=== PATIENT | female | born 1985 | race Caucasian/White ===

== ENCOUNTER 2023-01-24 19:22 | Outpatient (REF) | payer MEDICARE, MEDICAID, SELFPAY ==
[2023-01-30 12:08] LABS: Age Gdln ACOG Testing Note (.); HPV Aptima Negative (Negative); IGP, Aptima HPV, rfx 16/18,45 Note (.)
== END 2023-01-24 19:23 | disposition home or self-care (01) ==
LOC: LAB 19:22
PROVIDERS: Visit Provider Physician Assistant
DX: Z01.419 Encounter for gynecological examination (general) (routine) without abnormal findings (principal)
CPT/HCPCS: 87624; G0145

== ENCOUNTER 2023-03-22 16:42 | Outpatient (OUT) | payer MEDICARE, MEDICAID, SELFPAY ==
--- NOTE | 2023-03-22 16:44 | MM_ITS ---
Patient Name: NICOLETTE FERNANDEZ MR#: [id number] : 1985 Exam Date: 03/22/2023 Ordering Doctor: MAIK Joyce . RADIOLOGY REPORT PROCEDURE: MM TOMOSYNTHESIS SCREENING BI COMPARISON: [facility] MAMM DIAGNOSTIC 3D NICK CAD, 02/24/2021. [facility] MAMM SCREEN 3D NICK CAD, 03/21/2022. INDICATIONS: screening Calculator Name NCI Breast Cancer Risk Assessment Tool 5 Year Breast Cancer Risk 0.80% Lifetime Breast Cancer Risk 11.00% Personal Breast Cancer No Personal Ovarian Cancer No Treatments None Family Cancers Grandmother-maternal with breast cancer at age 62; Grandmother-maternal with ovarian cancer at age 62; Father with prostate cancer at age ~48; Sister with cervical cancer at age ~25. LOCATION: [facility] BREAST COMPOSITION: Extremely dense, which lowers the sensitivity of mammography. FINDINGS: DIAGNOSTIC CATEGORY 2--BENIGN FINDING. NO CHANGE FROM COMPARISON. Scattered benign-appearing calcifications are present. Scattered benign-appearing lymph nodes are present. RIGHT BREAST: No significant suspicious finding. Stable micro clip marker lower inner quadrant, posterior breast LEFT BREAST: No significant suspicious finding. Pacemaker partially obscures the left axillary tail RECOMMENDATIONS: CLINICAL EVALUATION. PLEASE NOTE: A NORMAL MAMMOGRAM DOES NOT EXCLUDE THE POSSIBILITY OF BREAST CANCER. A CLINICALLY SUSPICIOUS PALPABLE LUMP SHOULD BE BIOPSIED. Dictated by: Hudson Devries MD on 03/23/2023 at 07:16 Approved by: Hudson Devries MD on 03/23/2023 at 07:18
--- OUTSIDE RECORDS SUMMARY | 2023-03-22 16:45 | XMS_ITS | CCD ---
Author Name Unknown Address [address] [facility] [address] [place] [address] Organization [facility] Care Team Providers Care Fisheries Specialist Name Role Phone LAURA STILL Unavailable Unavailable GRUNDENCAROL Unavailable Unavailable ZURDO HEMANTONY R Unavailable Unavailable TESSY LAURA Ho Unavailable Unavailable TOMÁS, JUDY Admitting Unavailable DEEPTHI ENGLANDIR Attending Unavailable LAURA STILL Referring Unavailable LAURA STILL Primary Care Unavailable Tessy THOMAS, Laura Vic Primary Care Provider LAURA STILL Primary Care Unavailable MIN LEWIS Referring Unavailable Laura Still MD Primary Care Provider DR LAURA STILL Admitting Unavailable TESSY, DR GRIER Attending Unavailable TESSY, DR GRIER Primary Care Unavailable TESSY, DR GRIER Consulting Unavailable LATRELLEBTAN, DR RANJAN Castillo Consulting Unavailable PRAJAPATI, BERNARDO Admitting Unavailable PRAJAPATI, BERNARDO Attending Unavailable PRAJAPATI, BERNARDO Primary Care Unavailable PRAJAPATI, BERNARDO Consulting Unavailable PRAJAPATI, BERNARDO Admitting Unavailable PRAJAPATI, BERNARDO Attending Unavailable PRAJAPATI, BERNARDO Primary Care Unavailable PRAJAPATI, BERNARDO Consulting Unavailable LAURA STILL Vic Primary Care Unavailable ABHYANKAR, MIN Referring Unavailable ABHYANKAR, MIN Attending Unavailable TESSY LAURA Ho Primary Care Unavailable ABRICARDOAR, MIN Attending Unavailable JACINTO YIN Attending Unavailable JANA FRNACIS Attending Unavailable ALEM CROCKETT Referring Unavailable AZ WHITE Attending Unavailable ALEM CROCKETT Referring Unavailable Allergies Allergy Classification Reported Allergen(s) Allergy Type Date of Onset Reaction(s) Facility (15 sources) Morphine; Translations: [MORPHINE] Drug Allergy 2 Vomiting [facility] (13 sources) Vancomycin; Translations: [VANCOMYCIN] Drug Allergy 2 Rash [facility] (1 source) Latex; Translations: [LATEX] Propensity to adverse reactions to drug (disorder) 8 [facility] (1 source) ALLERGIES NOT ON FILE; Translations: [ALLERGIES NOT ON FILE] Propensity to adverse reactions (disorder) [facility] Medications Completed/Discontinued Medications Medication Drug Class(es) Dates Sig (Normalized) Sig (Original) 6-aminocaproic acid 500 mg oral tablet (5 sources) Antifibrinolytic Agent Start: 2 End: 2 take 4 tablets by mouth every six hours aminocaproic acid (AMICAR) 500 mg tablet Indications: Platelet dense granule deficiency (HCC) , Family history of bleeding disorder , History of bleeding disorder Take 4 tablets by mouth every 6 hours for 10 days. 160 tablet 3 02/07/2022 Active Comment on above: Take 4 tablets by mo [facility] every 6 hours for 10 days. 24 hr buPROPion hydrochloride 150 mg extended release oral tablet (10 sources) Aminoketone take 1 tablet by mouth once daily buPROPion XL (WELLBUTRIN XL) 150 mg 24 hr tablet bupropion HCl XL 150 mg 24 hr tablet, extended release TAKE 1 TABLET BY MOUTH EVERY DAY DIRECTED 0 Active Comment on above: bupropion HCl XL 150 mg 24 hr tablet, extended release TAKE 1 TABLET BY MOUTH EVERY DAY DIRECTED cholecalciferol 1.25 mg oral capsule (10 sources) Vitamin D take 1 capsule by mouth two times weekly cholecalciferol, Vitamin D3, (VITAMIN D3) 1,250 mcg (50,000 unit) cap capsule cholecalciferol (vitamin D3) 1,250 mcg (50,000 unit) capsule TAKE 1 CAPSULE BY MOUTH 2 TIMES A WEEK 0 Active Comment on above: cholecalciferol (vit broussard D3) 1,250 mcg (50,000 unit) capsule TAKE 1 CAPSULE BY MOUTH 2 TIMES A WEEK crisaborole 0.02 mg/mg topical ointment (10 sources) crisaborole (EUCRISA) 2 % Eucrisa 2 % topical ointment daily 0 Active Comment on above: Eucrisa 2 % topical ointment daily desmopressin acetate 0.01 mg/actuat nasal spray (7 sources) Vasopressin Analog, Factor VIII Activator Start: 3 End: desmopressin (DDAVP) 10 mcg/spray (0.1 mL) spry Use 2 Sprays in the nose every 12 hours. 5 mL 3 04/04/2022 Active Start: 03-09-2022 End: 04-03-2022 Desmopressin Acetate 150 mcg /spray (0.1 mL) spry Indications: Platelet dense granule deficiency (HCC) , Family history of bleeding disorder , History of bleeding disorder Use 1 [place] in the nose every 12 hours as needed for up to 10 days. 2.5 mL 3 03/09/2022 04/03/2022 Discontinued Start: 01-31-2022 End: 02-10-2022 Desmopressin Acetate 150 mcg /spray (0.1 mL) spry Indications: Platelet dense granule deficiency (HCC) Use 1 [place] in the nose every 12 hours as needed for up to 10 days. 2.5 mL 3 01/31/2022 02/10/2022 Active Start: 01-31-2022 End: 01-31-2022 desmopressin (DDAVP) 10 mcg/ spray (0.1 mL) spry Indications: Platelet dense granule deficiency (HCC) Use 2 Sprays in the nose every 12 hours as needed. 5 mL 3 01/31/2022 01/31/2022 Discontinued Comment on above: Use 1 [place] in the n ose every 12 hours as needed for up to 10 days. Use 2 Sprays in the nose every 12 hours as needed. Use 2 Sprays in the nose every 12 hours. 2 ml dupilumab 150 mg/ml auto-injector (10 sources) Interleukin-4 Receptor alpha Antagonist dupilumab (DUPIXENT PEN) 300 mg/2 mL pen Dupixent 300 mg/2 mL subcutaneous pen injector 0 Active Comment on above: Dupixent 300 mg/2 mL subcutaneous pen injector escitalopram 20 mg oral tablet (10 sources) Serotonin Reuptake Inhibitor take 1 tablet by mouth once daily escitalopram oxalate (LEXAPRO) 20 mg tablet escitalopram 20 mg tablet TAKE 1 TABLET BY MOUTH EVERY DAY 0 Active Comment on above: escitalopram 20 mg t ablet TAKE 1 TABLET BY MOUTH EVERY DAY ketoconazole 20 mg/ml topical cream (5 sources) Azole Antifungal End: ketoconazole (NIZORAL) 2 % cream ketoconazole 2 % topical cream PRN 0 01/31/2022 Discontinued Comment on above: ketoconazole 2 % top ical cream PRN linaclotide 0.072 mg oral capsule (10 sources) Guanylate Cyclase-C Agonist take 1 capsule by mouth once daily linaCLOtide (LINZESS) 72 mcg capsule Linzess 72 mcg capsule TAKE 1 CAPSULE BY MOUTH EVERY DAY ON AN EMPTY STOMACH 0 Active Comment on above: Linzess 72 mcg capsu le TAKE 1 CAPSULE BY MOUTH EVERY DAY ON AN EMPTY STOMACH metoprolol tartrate 50 mg oral tablet (10 sources) beta-Adrenergic Adriana Start: take 1 tablet by mouth twice daily metoprolol tartrate, short acting, (LOPRESSOR) 50 mg tablet metoprolol tartrate 50 mg tablet TAKE 1 TABLET BY MOUTH TWICE A DAY 0 08/24/2017 Active Comment on above: metoprolol tartrate 50 mg tablet TAKE 1 TABLET BY MOUTH TWICE A DAY modafinil 100 mg oral tablet (10 sources) Sympathomimetic-like Agent take 1 tablet by mouth twice daily modafinil (PROVIGIL) 100 mg tablet modafinil 100 mg tablet Take 1 tablet twice a day by oral route for 90 days. 0 Active Comment on above: modafinil 100 mg tab let Take 1 tablet twice a day by oral route for 90 days. promethazine hydrochloride 25 mg oral tablet (10 sources) Phenothiazine Start: promethazine (PHENERGAN) 25 mg tablet promethazine 25 mg tablet Take 0.5 tablets as needed by oral route for 8 days. 0 08/27/2017 Active Comment on above: promethazine 25 mg t ablet Take 0.5 tablets as needed by oral route for 8 days. sodium chloride 1000 mg oral tablet (10 sources) Start: sodium chloride 1 gram tab q 24 HR. 0 08/27/2017 Active Comment on above: q 24 HR. sulfamethoxazole 800 mg / trimethoprim 160 mg oral tablet (10 sources) Dihydrofolate Reductase Inhibitor Antibacterial, Sulfonamide Antimicrobial take 1 tablet by mouth once as needed sulfamethoxazole-tri methoprim (BACTRIM DS,SEPTRA DS) 800-160 mg per tablet Take 1 tablet by mouth as needed. 0 Active Comment on above: Take 1 tablet by renetta th as needed. triamcinolone acetonide 0.61519 mg/mg topical ointment (3 sources) Corticosteroid triamcinolone (KENALOG) 0.025 % ointment triamcinolone acetonide 0.025 % topical ointment APPLY TO RASH ON CHEST DAILY FOR 2 WEEKS 0 Active Comment on above: triamcinolone aceton honorio 0.025 % topical ointment APPLY TO RASH ON CHEST DAILY FOR 2 WEEKS Problems Problem Classification Problem Date Documented Da te Episodic/Chronic Cardiac dysrhythmias (1 source) Tachycardia, unspecified; Translations: [TACHYCARDIA UNSPECIFIED] Onset: 04-22-2022 Episodic Coagulation and hemorrhagic disorders (4 sources) Platelet dense granule deficiency; 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-2022 Chronic Conduction disorders (4 sources) Presence of cardiac pacemaker; Translations: [Encounter for adjustment and management of automatic implantable cardiac defibrillator] Onset: 11-24-2021 Chronic Diabetes mellitus without complication (4 sources) Impaired fasting glucose; Translations: [IMPAIRED FASTING GLUCOSE] Onset: 05-18-2022 Episodic Nutritional deficiencies (1 source) Vitamin D deficiency, unspecified; Translations: [VITAMIN D DEFICIENCY UNSPECIFIED] Onset: 04-22-2022 Chronic Other circulatory disease (3 sources) Orthostatic hypotension; Translations: [ORTHOSTATIC HYPOTENSION] Onset: 04-22-2022 Episodic Other circulatory disease (2 sources) Postural orthostatic tachycardia syndrome ; Translations: [Postural orthostatic tachycardia syndrome (POTS)] Onset: 11-24-2021 Episodic Other gastrointestinal disorders (1 source) Slow transit constipation; Translations: [SLOW TRANSIT CONSTIPATION] Onset: 04-22-2022 Episodic Other hematologic conditions (1 source) H/O: blood disorder; Translations: [Personal history of diseases of the blood and blood-forming organs and certain disorders involving the immune mechanism] Episodic Other screening for suspected conditions (not mental disorders or infectious disease) (4 sources) Encounter for screening mammogram for malignant neoplasm of breast; Translations: [ENC SCR MAMMO MALIG NEOPLASM BREAST] Onset: 03-21-2022 Episodic Residual codes; unclassified (1 source) FH: Blood disorder; Translations: [Family history of diseases of the blood and blood-forming organs and certain disorders involving the immune mechanism] Episodic Residual codes; unclassified (1 source) Family history of malignant neoplasm of breast; Translations: [FAMILY HX MALIG NEOPLASM OF BREAST] Onset: 03-23-2022 Episodic Residual codes; unclassified (1 source) Family history of malignant neoplasm of ovary; Translations: [FAM HX MALIGNANT NEOPLASM OVARY] Onset: 03-23-2022 Episodic Residual codes; unclassified (1 source) Family history of malignant neoplasm of prostate; Translations: [FAMILY HX MALIG NEOPLASM PROSTATE] Onset: 03-23-2022 Episodic Residual codes; unclassified (1 source) Family history of malignant neoplasm of other organs or systems; Translations: [FAM HX MALIG NEOPLASM OTH ORGN/SYS] Onset: 03-23-2022 Episodic Syncope (2 sources) Syncope and collapse; Translations: [Syncope and collapse] Onset: 03-21-2023 Episodic Syncope (1 source) Syncope Onset: 10-11-2016 Unclassified (1 source) Presence of cardiac pacemaker / Z95.0(ICD-10) Onset: 09-11-2016 Results Test Name Value Interpretation Reference Range Facility Follow-Upon 03-21-2023 Follow-Up [id number] Nicolette Fernandez 1985 Date Provider Department Center 03/21/2023 [place] [facility] Family History Problem Relation Age of Onset Anemia Mother Hyperlipidemia Mother Diabetes type II Father Fainting Father Heart attack Father 40 Hypertension Father Fainting Paternal Grandfather Other Daughter Other Son Cervical cancer Sister Family Status - Relation Status Age at Mother Alive Father Alive Paternal Grandfather Daughter Alive Son Alive Sister Alive Level of Service:99061 [place] OFFICE/OUTPATIENT ESTABLISHED LOW MDM 20 MIN Normal [facility] 03-07-2023 Refill [id number] Nicolette Fernandez 1985 Date Provider Department Center 03/07/2023 JUDY MARIN [facility] No family history on file Reason for Visit and Comments: Med Refill [[id number]] Normal [facility] Mignon 08-22-2022 MARIAN Telephone (JANAE) NICOLETTE FERNANDEZ ([id number]) 1985 F Date Time Provider Department 08/22/22 MIN LEWIS During your visit today, we recorded the following information about you: Rivka Patricia MA 08/22/2022 9:50 AM Signed Patient has an appt on 08/28/22. Would you like labs, if so place orders. Rivka Patricia MA Allergies As of Date: 08/22/2022 Noted Allergy Reaction MORPHINE 07/09/2014 11 - Vomiting Comments: Severe Urinary retention, severe vomiting VANCOMYCIN 12/28/2021 2 - Rash Date Reviewed: 04/24/2022 Reviewed by: Lisa Arrieta APRN.CASE FOLDER - Fully Assessed Reason for Visit: Lab Orders [[id number]] Prescriptions as of 09/01/2022 - desmopressin (DDAVP) 10 mcg/spray (0.1 mL) spry Use 2 Sprays in the nose every 12 hours. - aminocaproic acid (AMICAR) 500 mg tablet Take 4 tablets by mouth every 6 hours for 10 days. - buPROPion XL (WELLBUTRIN XL) 150 mg 24 hr tablet bupropion HCl XL 150 mg 24 hr tablet, extended release TAKE 1 TABLET BY MOUTH EVERY DAY DIRECTED - cholecalciferol, Vitamin D3, (VITAMIN D3) 1,250 mcg (50,000 unit) cap capsule cholecalciferol (vitamin D3) 1,250 mcg (50,000 unit) capsule TAKE 1 CAPSULE BY MOUTH 2 TIMES A WEEK - escitalopram oxalate (LEXAPRO) 20 mg tablet escitalopram 20 mg tablet TAKE 1 TABLET BY MOUTH EVERY DAY - dupilumab (DUPIXENT PEN) 300 mg/2 mL pen Dupixent 300 mg/2 mL subcutaneous pen injector - crisaborole (EUCRISA) 2 % Eucrisa 2 % topical ointment daily - linaCLOtide (LINZESS) 72 mcg capsule Linzess 72 mcg capsule TAKE 1 CAPSULE BY MOUTH EVERY DAY ON AN EMPTY STOMACH - metoprolol tartrate, short acting, (LOPRESSOR) 50 mg tablet metoprolol tartrate 50 mg tablet TAKE 1 TABLET BY MOUTH TWICE A DAY - modafinil (PROVIGIL) 100 mg tablet modafinil 100 mg tablet Take 1 tablet twice a day by oral route for 90 days. - promethazine (PHENERGAN) 25 mg tablet promethazine 25 mg tablet Take 0.5 tablets as needed by oral route for 8 days. - sodium chloride 1 gram tab q 24 HR. - sulfamethoxazole-trim ethoprim (BACTRIM DS,SEPTRA DS) 800-160 mg per tablet Take 1 tablet by mouth as needed. Problem List As Of Date: 08/22/2022 (None) Encounter Status:[facility]ICOLETT[facility]ERNANDEZ ([id number]) 1985 F Date Time Provider Department 07/26/22 MIN LEWIS During your visit today, we recorded the following information about you: Rivka Patricia MA 07/26/2022 4:04 PM Signed Patient has an appt on 07/31/22. Would you like labs, if so place orders. Rivka Patricia MA Allergies As of Date: 07/26/2022 Noted Allergy Reaction MORPHINE 07/09/2014 11 - Vomiting Comments: Severe Urinary retention, severe vomiting VANCOMYCIN 12/28/2021 2 - Rash Date Reviewed: 04/24/2022 Reviewed by: Lisa Arrieta APRN.CASE FOLDER - Fully Assessed Reason for Visit: Lab Orders [[id number]] Prescriptions as of 08/01/2022 - desmopressin (DDAVP) 10 mcg/spray (0.1 mL) spry Use 2 Sprays in the nose every 12 hours. - aminocaproic acid (AMICAR) 500 mg tablet Take 4 tablets by mouth every 6 hours for 10 days. - buPROPion XL (WELLBUTRIN XL) 150 mg 24 hr tablet bupropion HCl XL 150 mg 24 hr tablet, extended release TAKE 1 TABLET BY MOUTH EVERY DAY DIRECTED - cholecalciferol, Vitamin D3, (VITAMIN D3) 1,250 mcg (50,000 unit) cap capsule cholecalciferol (vitamin D3) 1,250 mcg (50,000 unit) capsule TAKE 1 CAPSULE BY MOUTH 2 TIMES A WEEK - escitalopram oxalate (LEXAPRO) 20 mg tablet escitalopram 20 mg tablet TAKE 1 TABLET BY MOUTH EVERY DAY - dupilumab (DUPIXENT PEN) 300 mg/2 mL pen Dupixent 300 mg/2 mL subcutaneous pen injector - crisaborole (EUCRISA) 2 % Eucrisa 2 % topical ointment daily - linaCLOtide (LINZESS) 72 mcg capsule Linzess 72 mcg capsule TAKE 1 CAPSULE BY MOUTH EVERY DAY ON AN EMPTY STOMACH - metoprolol tartrate, short acting, (LOPRESSOR) 50 mg tablet metoprolol tartrate 50 mg tablet TAKE 1 TABLET BY MOUTH TWICE A DAY - modafinil (PROVIGIL) 100 mg tablet modafinil 100 mg tablet Take 1 tablet twice a day by oral route for 90 days. - promethazine (PHENERGAN) 25 mg tablet promethazine 25 mg tablet Take 0.5 tablets as needed by oral route for 8 days. - sodium chloride 1 gram tab q 24 HR. - sulfamethoxazole-trim ethoprim (BACTRIM DS,SEPTRA DS) 800-160 mg per tablet Take 1 tablet by mouth as needed. Problem List As Of Date: 07/26/2022 (None) Encounter Status:Closed by RIVKA PATRICIA on 08/01/22 Normal [facility] 05-20-2022 Refill [id number] Nicolette Fernandez 1985 F Date Provider Department Center 05/20/2022 [id number] No family history on file Reason for Visit and Comments: Med Refill [[id number]] Normal [facility] GLYCOHEMOGLOBIN A1Con 2022 ADA RECOMMENDATION SEE BELOW Normal [facility] Comment on above: Result Comment: ADA RECOMMENDED LIMIT 4.0 - 6.0 ADA THERAPEUTIC TARGET < 7.0 ACTION SUGGESTED > 7.0 Performed By: #### A 1C #### [facility] [address] [address] [address] Macy Vázquez Glucose [Mass/Vol] 91 mg/dL Normal [facility] Comment on above: Performed By: #### A 1C #### [facility] [address] [address] [address] Macy Vázquez HbA1c (Bld) [Mass fraction] 4.8 % Normal 4.5-6.2 [facility] Comment on above: Performed By: #### A 1C #### [facility] [address] [address] [address] Macy Vázquez POTASSIUMon 05-18-2022 Potassium [Moles/Vol] 3.6 mmol/L Normal 3.5-5.1 [facility] Comment on above: Performed By: #### K #### [facility] [address] [place] [address] Dr. Macy Vázquez CNPNon 04-21-2022 CNPN Telephone (HEMASA) NICOLETTE FERNANDEZ ([id number]) 1985 F Date Time Provider Department 04/21/22 MIN LEWIS During your visit today, we recorded the following information about you: Rivka Patricia MA 04/21/2022 2:05 PM Signed Patient has an appt on 05/01/22. Would you like labs, if so place orders. ESTHER Vargas APRN.CASE FOLDER 04/24/2022 11:[address] Lewis, Not sure what labs you want ordered. Please advise. Thanks, Lisa Arrieta, PHUONG.CASE FOLDER Allergies As of Date: 04/21/2022 Noted Allergy Reaction MORPHINE 07/09/2014 11 - Vomiting Comments: Severe Urinary retention, severe vomiting VANCOMYCIN 12/28/2021 2 - Rash Date Reviewed: 12/28/2021 Reviewed by: Rivka Patricia MA - Fully Assessed Reason for Visit: Lab Orders [[id number]] Prescriptions as of 05/02/2022 - desmopressin (DDAVP) 10 mcg/spray (0.1 mL) spry Use 2 Sprays in the nose every 12 hours. - aminocaproic acid (AMICAR) 500 mg tablet Take 4 tablets by mouth every 6 hours for 10 days. - buPROPion XL (WELLBUTRIN XL) 150 mg 24 hr tablet bupropion HCl XL 150 mg 24 hr tablet, extended release TAKE 1 TABLET BY MOUTH EVERY DAY DIRECTED - cholecalciferol, Vitamin D3, (VITAMIN D3) 1,250 mcg (50,000 unit) cap capsule cholecalciferol (vitamin D3) 1,250 mcg (50,000 unit) capsule TAKE 1 CAPSULE BY MOUTH 2 TIMES A WEEK - escitalopram oxalate (LEXAPRO) 20 mg tablet escitalopram 20 mg tablet TAKE 1 TABLET BY MOUTH EVERY DAY - dupilumab (DUPIXENT PEN) 300 mg/2 mL pen Dupixent 300 mg/2 mL subcutaneous pen injector - crisaborole (EUCRISA) 2 % Eucrisa 2 % topical ointment daily - linaCLOtide (LINZESS) 72 mcg capsule Linzess 72 mcg capsule TAKE 1 CAPSULE BY MOUTH EVERY DAY ON AN EMPTY STOMACH - metoprolol tartrate, short acting, (LOPRESSOR) 50 mg tablet metoprolol tartrate 50 mg tablet TAKE 1 TABLET BY MOUTH TWICE A DAY - modafinil (PROVIGIL) 100 mg tablet modafinil 100 mg tablet Take 1 tablet twice a day by oral route for 90 days. - promethazine (PHENERGAN) 25 mg tablet promethazine 25 mg tablet Take 0.5 tablets as needed by oral route for 8 days. - sodium chloride 1 gram tab q 24 HR. - sulfamethoxazole-trim ethoprim (BACTRIM DS,SEPTRA DS) 800-160 mg per tablet Take 1 tablet by mouth as needed. Problem List As Of Date: 04/21/2022 (None) Encounter Status:Closed by RIVKA PATRICIA on 05/02/22 Normal [facility] CBC AUTO DIFFon 04-18-2022 BASO # 0.1 103/ul Normal 0.0-0.1 [facility] Comment on above: Performed By: #### C BC #### [facility] [address] [address] [address] Macy Vázquez Basophils/100 WBC (Bld) 0.6 % Normal 0.2-2.0 [facility] Comment on above: Performed By: #### C BC #### [facility] [address] [address] [address] Macy Vázquez EO # 0.1 103/ul Normal 0.0-0.7 [facility] Comment on above: Performed By: #### C BC #### [facility] [address] [address] [address] Macy Vázquez Eosinophils/100 WBC (Bld) 1.3 % Normal 0.9-7.0 [facility] Comment on above: Performed By: #### C BC #### [facility] [address] [place] [address] Dr. Macy Vázquez Erythrocyte distribution width (RBC) [Ratio] 11.9 % Normal 11.0-15.0 [facility] Comment on above: Performed By: #### C BC #### [facility] [address] [place] [address] Dr. Macy Vázquez Hematocrit (Bld) [Volume fraction] 41.3 % Normal 36.0-48.0 [facility] Comment on above: Performed By: #### C BC #### [facility] [address] [place] [address] Dr. Macy Vázquez Hemoglobin (Bld) [Mass/Vol] 14.5 g/dL Normal 12.0-16.0 [facility] Comment on above: Performed By: #### C BC #### [facility] [address] [address] [address] Macy Vázquez IG # 0.04 10e3/ul Critically high 0.00-0.03 [facility] Comment on above: Performed By: #### C BC #### [facility] [address] [address] [address] Macy Vázquez IG % 0.4 % Normal 0.0-0.5 [facility] Comment on above: Performed By: #### C BC #### [facility] [address] [address] [address] Macy Vázquez LYMPH # 3.5 103/ul Normal 1.2-3.8 [facility] Comment on above: Performed By: #### C BC #### [facility] [address] [place] [address] Dr. Macy Vázquez Lymphocytes/100 WBC (Bld) 33.7 % Normal 20.5-60.0 [facility] Comment on above: Performed By: #### C BC #### [facility] [address] [place] [address] Dr. Macy Vázquez MANUAL DIFF REQ NO Normal [facility] Comment on above: Performed By: #### C BC #### [facility] [address] [place] [address] Dr. Macy Vázquez MCH (RBC) [Entitic mass] 32.2 pg Normal 26.7-34.0 [facility] Comment on above: Performed By: #### C BC #### [facility] [address] [place] [address] Dr. Macy Vázquez MCHC (RBC) [Mass/Vol] 35.1 g/dL Normal 29.9-35.2 [facility] Comment on above: Performed By: #### C BC #### [facility] [address] [place] [address] Dr. Macy Vázqeuz MCV (RBC) [Entitic vol] 91.8 fL Normal 81.0-99.0 [facility] Comment on above: Performed By: #### C BC #### [facility] [address] [place] [address] Dr. Macy Vázquez MONO # 1.0 103/ul Critically high 0.3-0.8 [facility] Comment on above: Performed By: #### C BC #### [facility] [address] [place] [address] Dr. Macy Vázquez Monocytes/100 WBC (Bld) 9.3 % Normal 1.7-12.0 [facility] [facility] Comment on above: Performed By: #### C BC #### [facility] [address] [place] [address] Dr. Macy Vázquez NEUT # 5.7 103/ul Normal 1.4-6.5 [facility] Comment on above: Performed By: #### C BC #### [facility] [address] [place] [address] Dr. Macy Vázquez Neutrophils/100 WBC (Bld) 54.7 % Normal 43.0-75.0 [facility] Comment on above: Performed By: #### C BC #### [facility] [address] [place] [address] Dr. Macy Vázquez Platelet mean volume (Bld) [Entitic vol] 10.1 fL Normal 9.5-13.5 [facility] Comment on above: Performed By: #### C BC #### [facility] [address] [place] [address] Dr. Macy Vázquez PLT 257 103/ul Normal 150-450 [facility] Comment on above: Performed By: #### C BC #### [facility] [address] [place] [address] Dr. Macy Vázquez RBC 4.50 106/ul Normal 4.20-5.40 [facility] Comment on above: Performed By: #### C BC #### [facility] [address] [place] [address] Dr. Macy Vázquez WBC 10.4 103/ul Normal 4.0-11.0 [facility] Comment on above: Performed By: #### C BC #### [facility] [address] [place] [address] Dr. Macy Vázquez LIPID PROFILEon 04-18-2022 CHOL-HDL RATIO NORM SEE BELOW Normal [facility] Comment on above: Result Comment: 3.3 - 4.4 LOW RISK 4.4 - 7.1 AVERAGE RISK 7.1 - 11.0 MODERATE RISK >11.0 HIGH RISK Performed By: #### C MP, TSH, LIPID #### [facility] [address] [place] [address] Dr. Macy Vázquez Cholesterol [Mass/Vol] 195 mg/dL Normal <=200 [facility] Comment on above: Performed By: #### C MP, TSH, LIPID #### [facility] [address] [address] [address] Macy Vázquez Cholesterol in HDL [Mass/Vol] 32 mg/dL Critically low 40-60 [facility] Comment on above: Performed By: #### C MP, TSH, LIPID #### [facility] [address] [address] [address] Macy Vázquez Cholesterol in LDL [Mass/Vol] 117.4 mg/dL Normal [facility] Comment on above: Performed By: #### C MP, TSH, LIPID #### [facility] [address] [place] [address] Dr. Macy Vázquez Cholesterol.total/Ch olesterol in HDL [Mass ratio] 6.1 {ratio} Normal [facility] Comment on above: Performed By: #### C MP, TSH, LIPID #### [facility] [address] [address] [address] Macy Vázquez HDL NORMAL > or = 60 mg/dl - LO W CARDIOVASCULAR RISK <40 mg/dl - HIGH CARDIOVASCULAR RISK Normal [facility] Comment on above: Performed By: #### C MP, TSH, LIPID #### [facility] [address] [place] [address] Dr. Macy Vázquez LDL CALC NORMAL SEE BELOW Normal [facility] Comment on above: Result Comment: <100 mg/dl OPTIMAL 100 - 129 mg/dl NEAR OR ABOVE OPTIMAL 130 - 159 mg/dl BORDERLINE HIGH 160 - 189 mg/dl HIGH >190 mg/dl VERY HIGH Performed By: #### C MP, TSH, LIPID #### [facility] [address] [address] [address] Macy Vázquez Triglyceride [Mass/Vol] 228 mg/dL Critically high <=150 [facility] Comment on above: Performed By: #### C MP, TSH, LIPID #### [facility] [address] [address] [address] Macy Vázquez VLDL CALC 45.6 mg/dL Normal [facility] Comment on above: Performed By: #### C MP, TSH, LIPID #### [facility] [address] [address] [address] Macy Vázquez PROF 14(COMP METB)on 023 Albumin [Mass/Vol] 3.9 g/dL Normal 3.4-5.0 [facility] Comment on above: Performed By: #### C MP, TSH, LIPID #### [facility] [address] [address] [address] Macy Vázquez Albumin/Globulin [Mass ratio] 1.4 {ratio} Normal [facility] Comment on above: Performed By: #### C MP, TSH, LIPID #### [facility] [address] [place] [address] Dr. Macy Vázquez ALP [Catalytic activity/Vol] 67 U/L Normal 46-116 [facility] Comment on above: Performed By: #### C MP, TSH, LIPID #### [facility] [address] [place] [address] Dr. Macy Vázquez ALT [Catalytic activity/Vol] 24 U/L Normal 14-59 [facility] Comment on above: Performed By: #### C MP, TSH, LIPID #### [facility] [address] [place] [address] Dr. Macy Vázquez Anion gap [Moles/Vol] 9.0 mmol/L Normal [facility] Comment on above: Performed By: #### C MP, TSH, LIPID #### [facility] [address] [place] [address] Dr. Macy Vázquez AST [Catalytic activity/Vol] 17 U/L Normal 15-37 [facility] Comment on above: Performed By: #### C MP, TSH, LIPID #### [facility] [address] [address] [address] Macy Vázquez Bilirubin [Mass/Vol] 0.2 mg/dL Normal 0.2-1.0 [facility] Comment on above: Performed By: #### C MP, TSH, LIPID #### [facility] [address] [place] [address] Dr. Macy Vázquez Calcium [Mass/Vol] 8.8 mg/dL Normal 8.5-10.1 [facility] Comment on above: Performed By: #### C MP, TSH, LIPID #### [facility] [address] [place] [address] Dr. Macy Vázquez Chloride [Moles/Vol] 102 mmol/L Normal 98-107 [facility] Comment on above: Performed By: #### C MP, TSH, LIPID #### [facility] [address] [place] [address] Dr. Macy Vázquez CO2 [Moles/Vol] 31.3 mmol/L Normal 21.0-32.0 [facility] Comment on above: Performed By: #### C MP, TSH, LIPID #### [facility] [address] [place] [address] Dr. Macy Vázquez Creatinine [Mass/Vol] 0.65 mg/dL Normal 0.55-1.02 [facility] Comment on above: Performed By: #### C MP, TSH, LIPID #### [facility] [address] [place] [address] Dr. Macy Vázquez EGFR-AF MARTINIQUAIS >60 Normal >=60 [facility] Comment on above: Performed By: #### C MP, TSH, LIPID #### [facility] [address] [place] [address] Dr. Macy Vázquez EGFR-NON AF MARTINIQUAIS >60 Normal >=60 [facility] Comment on above: Performed By: #### C MP, TSH, LIPID #### [facility] [address] [place] [address] Dr. Macy Vázquez Globulin (S) [Mass/Vol] 2.8 g/dL Normal [facility] Comment on above: Performed By: #### C MP, TSH, LIPID #### [facility] [address] [place] [address] Dr. Macy Vázquez Glucose [Mass/Vol] 114 mg/dL Critically high 74-106 [facility] Comment on above: Performed By: #### C MP, TSH, LIPID #### [facility] [address] [place] [address] Dr. Macy Vázquez Potassium [Moles/Vol] 3.3 mmol/L Critically low 3.5-5.1 [facility] Comment on above: Performed By: #### C MP, TSH, LIPID #### [facility] [address] [address] [address] Macy Vázquez Protein [Mass/Vol] 6.7 g/dL Normal 6.4-8.2 [facility] Comment on above: Performed By: #### C MP, TSH, LIPID #### [facility] [address] [address] [address] Macy Vázquez Sodium [Moles/Vol] 139 mmol/L Normal 136-145 [facility] Comment on above: Performed By: #### C MP, TSH, LIPID #### [facility] [address] [place] [address] Dr. Macy Vázquez Urea nitrogen [Mass/Vol] 6.0 mg/dL Critically low 7.0-18.0 [facility] Comment on above: Performed By: #### C MP, TSH, LIPID #### [facility] [address] [place] [address] Dr. Macy Vázquez Urea nitrogen/Creatinine [Mass ratio] 9.2 mg/mg Normal [facility] Comment on above: Performed By: #### C MP, TSH, LIPID #### [facility] [address] [place] [address] Dr. Macy Vázquez TSHon 04-18-2022 TSH 2.590 uIU/mL Normal 0.358-3.740 [facility] Comment on above: Performed By: #### C MP, TSH, LIPID #### [facility] [address] [place] [address] Dr. Macy Vázquez VITAMIN D 25 OHon 04-18-2022 VIT D 25-OH 39.7 ng/mL Normal [facility] Comment on above: Performed By: #### V ITAD #### [facility] [address] [place] [address] Dr. Macy Vázquez VIT D RANGES SEE BELOW Normal [facility] Comment on above: Result Comment: <20 ng/mL Vit D deficient 20 - <30 ng/mL Vit D insufficient 30 - 100 ng/mL Vit D sufficient >100 ng/mL Potential Toxicity Performed By: #### V ITAD #### [facility] [address] [address] [address] Macy Vázqeuz MG MAMM SCREEN 3D NICK CADon 03-21-2022 MG MAMM SCREEN 3D NICK CAD Patient: NICOLETTE FERNANDEZ Exam Date: 03/21/2022 : 1985 Gender:F Ordering : DR ALURA STILL M.D. Admission #: [id number] Family : Order #: [id number] CLICK HERE TO VIEW EXAM RADIOLOGY REPORT PROCEDURE: MAMMOGRAM SCREENING 3D BILATERAL CAD COMPARISON: MG MAMM DIAGNOSTIC 3D NICK CAD, 02/24/2021. INDICATIONS: Screening mammography Calculator Name NCI Breast Cancer Risk Assessment Tool 5 Year Breast Cancer Risk 0.70% Lifetime Breast Cancer Risk 11.10% Personal Breast Cancer No Personal Ovarian Cancer No Treatments None Family Cancers Grandmother-maternal with breast cancer at age 62; Grandmother-maternal with ovarian cancer at age 62; Father with prostate cancer at age 48; Sister with cervical cancer at age 25. LOCATION: [facility] BREAST COMPOSITION: Extremely dense, which lowers the sensitivity of mammography. FINDINGS: DIAGNOSTIC CATEGORY 2--BENIGN FINDING: RIGHT BREAST: No significant suspicious finding. Stable biopsy marker clip within the upper inner quadrant. No significant change has occurred. LEFT BREAST: No significant suspicious finding. No significant change has occurred. RECOMMENDATIONS: ROUTINE MAMMOGRAM AND CLINICAL EVALUATION IN 12 MONTHS. PLEASE NOTE: A NORMAL MAMMOGRAM DOES NOT EXCLUDE THE POSSIBILITY OF BREAST CANCER. A CLINICALLY SUSPICIOUS PALPABLE LUMP SHOULD BE BIOPSIED. Dictated by: Ranjan Alfaro M.D. on 03/22/2022 at 11:22 Approved by: Ranjan Alfaro M.D. on 03/22/2022 at 11:30 Normal [facility] 02-07-2022 [facility] Telephone ([facility]) NICOLETTE FERNANDEZ Seth ([id number]) 1985 F Date Time Provider Department 02/07/22 KAROLYN MEDELLIN [facility] During your visit today, we recorded the following information about you: Karolyn Medellin [facility] 02/07/2022 3:24 PM Signed 2 issues: Stimate is not covered as well as not available to order from chinese medicine practitioner. However, DDAVP 10 mcg/0.1 mL Lynbrook (qty. 5 mL) is covered and available for order. Amicar - I have submitted a prior authorization on cover my meds and still waiting for a determination. Karolyn Medellin [facility] Prior Authorization Note Provider Intervention Required?: No- Pharmacy completed on your behalf. Drug: Aminocaproic Acid 500MG Cover My Meds Gomez: [id number] Determination: Approved Prior Authorization/Case #: [id number] Prior Authorization Expiration: Time to PA Submission in CMM: 15 min Time to PA Determination in CMM: Same day Additional Information: 72 hour turn around For questions relating to this submission, please contact [facility] at [phone] Min Lewis MD 02/07/2022 2:59 PM Signed ? Karolyn Medellin [facility] 02/07/2022 3:28 PM Signed I got the aminocaproic acid covered by patient's insurance. The Stimate is NOT available to order and is NOT covered by patient's insurance. We can order DDAVP 10 mcg/0.1 mL Lynbrook (qty. 5 mL) and that IS covered by patient's insurance. Would you like to switch to this? Thanks, Karolyn Medellin [facility] Min Lewis MD 02/07/2022 5:17 PM Signed Great - Thanks Karolyn! Yes lets do the DDAVP - but I had wanted the high dose.... Brandee Jerez [facility] 02/13/2022 2:28 PM Signed Called [facility] - our arc welder who advised the high dose DDAVP (Stimate) 150mcg is currently on backorder. I researched further and found that due a concentration variability, the chinese medicine practitioner stopped producing Stimate in 2019 and they are estimating availability the half 2022. At this point, we will have to proceed with the lower dose. Thanks, Brandee Jerez [facility] Allergies As of Date: 02/07/2022 Noted Allergy Reaction MORPHINE 07/09/2014 11 - Vomiting Comments: Severe Urinary retention, severe vomiting VANCOMYCIN 12/28/2021 2 - Rash Date Reviewed: 12/28/2021 Reviewed by: Rivka Patricia MA - Fully Assessed Reason for Visit: Medication Problem [65] Cmt: Stimate and amicar Prescriptions as of 03/06/2022 - aminocaproic acid (AMICAR) 500 mg tablet Take 4 tablets by mouth every 6 hours for 10 days. - Desmopressin Acetate 150 mcg/spray (0.1 mL) spry Use 1 Lynbrook in the nose every 12 hours as needed for up to 10 days. - buPROPion XL (WELLBUTRIN XL) 150 mg 24 hr tablet bupropion HCl XL 150 mg 24 hr tablet, extended release TAKE 1 TABLET BY MOUTH EVERY DAY DIRECTED - cholecalciferol, Vitamin D3, (VITAMIN D3) 1,250 mcg (50,000 unit) cap capsule cholecalciferol (vitamin D3) 1,250 mcg (50,000 unit) capsule TAKE 1 CAPSULE BY MOUTH 2 TIMES A WEEK - escitalopram oxalate (LEXAPRO) 20 mg tablet escitalopram 20 mg tablet TAKE 1 TABLET BY MOUTH EVERY DAY - dupilumab (DUPIXENT PEN) 300 mg/2 mL pen Dupixent 300 mg/2 mL subcutaneous pen injector - crisaborole (EUCRISA) 2 % Eucrisa 2 % topical ointment daily - linaCLOtide (LINZESS) 72 mcg capsule Linzess 72 mcg capsule TAKE 1 CAPSULE BY MOUTH EVERY DAY ON AN EMPTY STOMACH - metoprolol tartrate, short acting, (LOPRESSOR) 50 mg tablet metoprolol tartrate 50 mg tablet TAKE 1 TABLET BY MOUTH TWICE A DAY - modafinil (PROVIGIL) 100 mg tablet modafinil 100 mg tablet Take 1 tablet twice a day by oral route for 90 days. - promethazine (PHENERGAN) 25 mg tablet promethazine 25 mg tablet Take 0.5 tablets as needed by oral route for 8 days. - sodium chloride 1 gram tab q 24 HR. - sulfamethoxazole-trim ethoprim (BACTRIM DS,SEPTRA DS) 800-160 mg per tablet Take 1 tablet by mouth as needed. Problem List As Of Date: 02/07/2022 (None) Encounter Status:Closed by KAROLYN MEDELLIN on 03/06/22 Normal [facility] CBC W Auto Differential pane l (Bld)on 01-11-2022 Basophils (Bld) [#/Vol] 0.06 10*3/uL Normal <0.11 [facility] Comment on above: Order Comment: Speci men Type: BLOOD SPECIMEN Ordering Facility: [facility] Address: [address] [place] [address] Performed By: #### 5 7021-8 #### [facility] CLIA [id number] [place] [address] [place] Basophils/100 WBC (Bld) 0.6 % Normal [facility] Comment on above: Order Comment: Speci men Type: BLOOD SPECIMEN Ordering Facility: [facility] Address: [address] [place] [address] Performed By: #### 5 7021-8 #### [facility] CLIA [id number] [place] [address] [place] Differential cell count method Nom (Bld) Auto Normal [facility] Comment on above: Order Comment: Speci men Type: BLOOD SPECIMEN Ordering Facility: [facility] Address: [address] [place] [address] Performed By: #### 5 7021-8 #### [facility] CLIA [id number] [place] [address] [place] Eosinophils (Bld) [#/Vol] 0.10 10*3/uL Normal <0.46 [facility] Comment on above: Order Comment: Speci men Type: BLOOD SPECIMEN Ordering Facility: [facility] Address: [address] [place] [address] Performed By: #### 5 7021-8 #### [facility] CLIA [id number] [place] [address] [place] Eosinophils/100 WBC (Bld) 0.9 % Normal [facility] Comment on above: Order Comment: Speci men Type: BLOOD SPECIMEN Ordering Facility: [facility] Address: [address] [address] Performed By: #### 5 7021-8 #### [facility] [place] [id number] [place] Erythrocyte distribution width (RBC) [Ratio] 11.7 % Normal 11.5-15.0 [facility] Comment on above: Order Comment: Speci men Type: BLOOD SPECIMEN Ordering Facility: [facility] Address: [address] [address] Performed By: #### 5 7021-8 #### [facility] [place] [id number] [address] [place] [address] [place] Hematocrit (Bld) [Volume fraction] 41.0 % Normal 36.0-46.0 [facility] Comment on above: Order Comment: Speci men Type: BLOOD SPECIMEN Ordering Facility: [facility] Address: [address] [address] Performed By: #### 5 7021-8 #### [facility] [place] [id number] [address] [place] [address] [place] Hemoglobin (Bld) [Mass/Vol] 14.2 g/dL Normal 11.5-15.5 [facility] Comment on above: Order Comment: Speci men Type: BLOOD SPECIMEN Ordering Facility: [facility] Address: [address] [address] Performed By: #### 5 7021-8 #### [facility] [place] [id number] [address] [place] [address] [place] Immature granulocytes (Bld) [#/Vol] 0.03 10*3/uL Normal <0.10 [facility] Comment on above: Order Comment: Speci men Type: BLOOD SPECIMEN Ordering Facility: [facility] Address: [address] [address] Performed By: #### 5 7021-8 #### [facility] [place] [id number] [address] [place] [address] [place] Immature granulocytes/100 WBC (Bld) 0.3 % Normal [facility] Comment on above: Order Comment: Speci men Type: BLOOD SPECIMEN Ordering Facility: [facility] Address: [address] [address] Performed By: #### 5 7021-8 #### [facility] CLIA [id number] [address] [place] [address] [place] Lymphocytes (Bld) [#/Vol] 4.12 10*3/uL High 1.00-4.00 [facility] Comment on above: Order Comment: Speci men Type: BLOOD SPECIMEN Ordering Facility: [facility] Address: [address] [address] Performed By: #### 5 7021-8 #### [facility] CLIA [id number] [place] Lymphocytes/100 WBC (Bld) 38.7 % Normal [facility] Comment on above: Order Comment: Speci men Type: BLOOD SPECIMEN Ordering Facility: [facility] Address: [address] [address] Performed By: #### 5 7021-8 #### [facility] CLIA [id number] [address] [place] [address] [place] MCH (RBC) [Entitic mass] 32.6 pg Normal 26.0-34.0 [facility] Comment on above: Order Comment: Speci men Type: BLOOD SPECIMEN Ordering Facility: [facility] Address: [address] [address] Performed By: #### 5 7021-8 #### [facility] CLIA [id number] [place] MCHC (RBC) [Mass/Vol] 34.6 g/dL Normal 30.5-36.0 [facility] Comment on above: Order Comment: Speci men Type: BLOOD SPECIMEN Ordering Facility: [facility] Address: [address] [address] Performed By: #### 5 7021-8 #### [facility] [place] [id number] [address] [place] [address] [place] MCV (RBC) [Entitic vol] 94.0 fL Normal 80.0-100.0 [facility] Comment on above: Order Comment: Speci men Type: BLOOD SPECIMEN Ordering Facility: [facility] Address: [address] [address] Performed By: #### 5 7021-8 #### [facility] [place] [id number] [address] [place] [address] [place] Monocytes (Bld) [#/Vol] 0.98 10*3/uL High <0.87 [facility] Comment on above: Order Comment: Speci men Type: BLOOD SPECIMEN Ordering Facility: [facility] Address: [address] [address] Performed By: #### 5 7021-8 #### [facility] [place] [id number] [address] [place] [address] [place] Monocytes/100 WBC (Bld) 9.2 % Normal [facility] Comment on above: Order Comment: Speci men Type: BLOOD SPECIMEN Ordering Facility: [facility] Address: [address] [address] Performed By: #### 5 7021-8 #### [facility] [place] [id number] [address] [place] [address] [place] Neutrophils (Bld) [#/Vol] 5.36 10*3/uL Normal 1.45-7.50 [facility] Comment on above: Order Comment: Speci men Type: BLOOD SPECIMEN Ordering Facility: [facility] Address: [address] [address] Performed By: #### 5 7021-8 #### [facility] IA [id number] [address] [place], [place] [id number] [place] [address] [place] Neutrophils/100 WBC (Bld) 50.3 % Normal [facility] Comment on above: Order Comment: Speci men Type: BLOOD SPECIMEN Ordering Facility: [facility] Address: [address] Performed By: #### 5 7021-8 #### [facility] [place] [id number] [address] [place] [address] [place] Nucleated RBC (Bld) [#/Vol] 10*3/uL Normal <0.01 [facility] Comment on above: Order Comment: Speci men Type: BLOOD SPECIMEN Ordering Facility: [facility] Address: [address] [address] Performed By: #### 5 7021-8 #### [facility] [place] [id number] [address] [place] [address] [place] Nucleated RBC/100 WBC (Bld) [Ratio] 0.0 /100 WBC Normal [facility] Comment on above: Order Comment: Speci men Type: BLOOD SPECIMEN Ordering Facility: [facility] Address: [address] [address] Performed By: #### 5 7021-8 #### [facility] IA [id number] [address] [place] [address] [place] Platelet mean volume (Bld) [Entitic vol] 10.8 fL Normal 9.0-12.7 [facility] Comment on above: Order Comment: Speci men Type: BLOOD SPECIMEN Ordering Facility: [facility] Address: [address] [address] Performed By: #### 5 7021-8 #### [facility] IA [id number] [address] [place] [address] [place] Platelets (Bld) [#/Vol] 261 10*3/uL Normal 150-400 [facility] Comment on above: Order Comment: Speci men Type: BLOOD SPECIMEN Ordering Facility: [facility] Address: [address] [address] Performed By: #### 5 7021-8 #### [facility] IA [id number] [address] [place] [address] [place] RBC (Bld) [#/Vol] 4.36 10*6/uL Normal 3.90-5.20 [facility] Comment on above: Order Comment: Speci men Type: BLOOD SPECIMEN Ordering Facility: [facility] Address: [address] [address] Performed By: #### 5 7021-8 #### [facility] CLIA [id number] [address] [place] [address] [place] [facility] WBC (Bld) [#/Vol] 10.65 10*3/uL Normal 3.70-11.00 [facility] Comment on above: Order Comment: Speci men Type: BLOOD SPECIMEN Ordering Facility: [facility] Address: [address] [address] Performed By: #### 5 7021-8 #### [facility] IA [id number] [address] [place] [address] [place] Comprehensive metabolic 2000 panelon 01-11-2022 Albumin [Mass/Vol] 4.5 g/dL Normal 3.9-4.9 [facility] Comment on above: Order Comment: Speci men Type: BLOOD SPECIMEN Ordering Facility: [facility] Address: [address] [address] Performed By: #### 2 4323-8 #### [facility] IA [id number] [address] [place], [place] [id number] [place] [address] [place] ALP [Catalytic activity/Vol] 59 U/L Normal 34-123 [facility] Comment on above: Order Comment: Speci men Type: BLOOD SPECIMEN Ordering Facility: [facility] Address: [address] Performed By: #### 2 4323-8 #### [facility] IA [id number] [address] [place] [address] [place] [facility] ALT [Catalytic activity/Vol] 19 U/L Normal 7-38 [facility] Comment on above: Order Comment: Speci men Type: BLOOD SPECIMEN Ordering Facility: [facility] Address: [address] [address] Performed By: #### 2 4323-8 #### [facility] CLIA [id number] [place] [address] [place] Anion gap [Moles/Vol] 13 mmol/L Normal 9-18 [facility] Comment on above: Order Comment: Speci men Type: BLOOD SPECIMEN Ordering Facility: [facility] Address: [address] Performed By: #### 2 4323-8 #### [facility] CLIA [id number] [address] [place] [address] [place] AST [Catalytic activity/Vol] 19 U/L Normal 13-35 [facility] Comment on above: Order Comment: Speci men Type: BLOOD SPECIMEN Ordering Facility: [facility] Address: [address] Performed By: #### 2 4323-8 #### [facility] CLIA [id number] [place] [address] [place] Bilirubin [Mass/Vol] mg/dL Low 0.2-1.3 [facility] Comment on above: Order Comment: Speci men Type: BLOOD SPECIMEN Ordering Facility: [facility] Address: [address] Performed By: #### 2 4323-8 #### [facility] IA [id number] [address] [place] [address] [place] Calcium [Mass/Vol] 9.7 mg/dL Normal 8.5-10.2 [facility] Comment on above: Order Comment: Speci men Type: BLOOD SPECIMEN Ordering Facility: [facility] Address: [address] Performed By: #### 2 4323-8 #### [facility] CLIA [id number] [address] [place] [address] [place] Chloride [Moles/Vol] 102 mmol/L Normal 97-105 [facility] Comment on above: Order Comment: Speci men Type: BLOOD SPECIMEN Ordering Facility: [facility] Address: [address] [place] [address] Performed By: #### 2 4323-8 #### [facility] CLIA [id number] [address] [place] [address] [place] CO2 [Moles/Vol] 26 mmol/L Normal 22-30 [place] [facility] Comment on above: Order Comment: Speci men Type: BLOOD SPECIMEN Ordering Facility: [facility] Address: [address] [place] [address] Performed By: #### 2 4323-8 #### [facility] CLIA [id number] [address] [place] [address] [place] Creatinine [Mass/Vol] 0.74 mg/dL Normal 0.58-0.96 [facility] Comment on above: Order Comment: Speci men Type: BLOOD SPECIMEN Ordering Facility: [facility] Address: [address] [place] [address] Performed By: #### 2 4323-8 #### [facility] IA [id number] [address] [place] ESTIMATED GLOMERULAR FILTRATION RATE 107 mL/min/1.73m??? Normal >=60 [facility] Comment on above: Order Comment: Speci men Type: BLOOD SPECIMEN Ordering Facility: [facility] Address: [address] [place] [address] Result Comment: Stephani mated Glomerular Filtration Rate (eGFR) is calculated using the 2020 CKD-EPI creatinine equation. This equation utilizes serum creatinine, sex, and age as parameters. The creatinine assay has traceable calibration to isotope dilution-mass spectrometry. Refer to KDIGO guidelines for clinical interpretation. In patients with unstable renal function, e.g. those with acute kidney injury, the eGFR may not accurately reflect actual GFR. Performed By: #### 2 4323-8 #### [facility] CLIA [id number] [address] [place] [address] [place] Glucose [Mass/Vol] 91 mg/dL Normal 74-99 [facility] Comment on above: Order Comment: Speci men Type: BLOOD SPECIMEN Ordering Facility: [facility] Address: [address] [address] Result Comment: The [place] Diabetes Association (ADA) provides guidance for cutoff values for fasting glucose and random glucose. The ADA defines fasting as no caloric intake for at least 8 hours. Fasting plasma glucose results between 100 to 125 mg/dL indicate increased risk for diabetes (prediabetes). Fasting plasma glucose results greater than or equal to 126 mg/dL meet the criteria for diagnosis of diabetes. In the absence of unequivocal hyperglycemia, results should be confirmed by repeat testing. In a patient with classic symptoms of hyperglycemia or hyperglycemic crisis, random plasma glucose results greater than or equal to 200 mg/dL meet the criteria for diagnosis of diabetes. Reference: Standards of Medical Care in Diabetes 2016, [place] Diabetes Association. Diabetes Care. 2016.39(Suppl 1). Performed By: #### 2 4323-8 #### [facility] CLIA [id number] [address] [place] [address] [place] Potassium [Moles/Vol] 3.6 mmol/L Low 3.7-5.1 [facility] Comment on above: Order Comment: Speci men Type: BLOOD SPECIMEN Ordering Facility: [facility] Address: [address] [address] Performed By: #### 2 4323-8 #### [facility] CLIA [id number] [address] [place] [address] [place] Protein [Mass/Vol] 6.5 g/dL Normal 6.3-8.0 [facility] Comment on above: Order Comment: Speci men Type: BLOOD SPECIMEN Ordering Facility: [facility] Address: [address] [address] Performed By: #### 2 4323-8 #### [facility] CLIA [id number] [address] [place] [address] [place] Sodium [Moles/Vol] 141 mmol/L Normal 136-144 [facility] Comment on above: Order Comment: Speci men Type: BLOOD SPECIMEN Ordering Facility: [facility] Address: [address] [address] Performed By: #### 2 4323-8 #### [facility] CLIA [id number] [address] [place] [address] [place] Urea nitrogen [Mass/Vol] 13 mg/dL Normal 7-21 [facility] Comment on above: Order Comment: Speci men Type: BLOOD SPECIMEN Ordering Facility: [facility] Address: [address] [address] Performed By: #### 2 4323-8 #### [facility] CLIA [id number] [address] [place] [address] [place] PLATELET AGGREGATIONon 01-11 Platelet aggregation ADP induced 20 umol/mL (PRP) [Rel units/Vol] 81 % Max Normal 71-94 [facility] Comment on above: Order Comment: Speci men Type: BLOOD SPECIMEN Ordering Facility: [facility] Address: [address] [place] [address] Performed By: #### L [id number] #### [facility] CLIA [id number] [address] [place] [address] Platelet aggregation ADP induced ATP secretion 10 umol/L (Bld) [Rel units/Vol] 0.7 nM Normal 0.1-1.4 [facility] Comment on above: Order Comment: Speci men Type: BLOOD SPECIMEN Ordering Facility: [facility] Address: [address] [place] [address] Performed By: #### L [id number] #### [facility] CLIA [id number] [address] [place] [address] Platelet aggregation ADP induced ATP secretion 5 umol/L (Bld) [Rel units/Vol] 0.4 nM Normal 0.1-1.3 [facility] Comment on above: Order Comment: Speci men Type: BLOOD SPECIMEN Ordering Facility: [facility] Address: [address] [place] [address] Performed By: #### L [id number] #### [facility] CLIA [id number] [address] [place] [address] [place] Platelet aggregation ADP induced High dose (PRP) [Rel units/Vol] 65 % Max Normal 65-93 [facility] Comment on above: Order Comment: Speci men Type: BLOOD SPECIMEN Ordering Facility: [facility] Address: [address] [place], [place] [address] Performed By: #### L [id number] #### [facility] CLIA [id number] [address] [place] [address] Platelet aggregation arachidonate induced 500 ug/mL (PRP) [Rel units/Vol] 75 % Max Normal 75-100 [facility] Comment on above: Order Comment: Speci men Type: BLOOD SPECIMEN Ordering Facility: [facility] Address: [address] [place], [place] [address] Performed By: #### L [id number] #### [facility] CLIA [id number] [address] [place] [address] Platelet aggregation arachidonate induced ATP secretion 500 umol/L (Bld) [Rel units/Vol] 1.5 nM Normal 0.4-2.0 [facility] Comment on above: Order Comment: Speci men Type: BLOOD SPECIMEN Ordering Facility: [facility] Address: [address] [place], [place] [address] Performed By: #### L [id number] #### [facility] CLIA [id number] [address] [place] [address] Platelet aggregation collagen induced ATP secretion 1 ug/mL (Bld) [Rel units/Vol] 1.1 nM Normal 0.4-1.7 [facility] Comment on above: Order Comment: Speci men Type: BLOOD SPECIMEN Ordering Facility: [facility] Address: [address] [place], [place] [address] Performed By: #### L [id number] #### [facility] CLIA [id number] [address] [place] [address] Platelet aggregation collagen induced Qn (Bld) 82 % Max Normal 74-99 [facility] Comment on above: Order Comment: Speci men Type: BLOOD SPECIMEN Ordering Facility: [facility] Address: [address] Performed By: #### L [id number] #### [facility] CLIA [id number] [address] [place] [address] Platelet aggregation EPINEPHrine induced (PRP) [Rel units/Vol] 11 % Max Low 70-97 [facility] Comment on above: Order Comment: Speci men Type: BLOOD SPECIMEN Ordering Facility: [facility] Address: [address] Performed By: #### L [id number] #### [facility] CLIA [id number] [address] [place] [address] Platelet aggregation EPINEPHrine induced 100 umol/L (PRP) [Rel units/Vol] 9 % Max Low 70-99 [facility] Comment on above: Order Comment: Speci men Type: BLOOD SPECIMEN Ordering Facility: [facility] Address: [address] Performed By: #### L [id number] #### [facility] CLIA [id number] [address] [place] [address] Platelet aggregation ristocetin induced 1200 ug/mL (PRP) [Rel units/Vol] 99 % Max Normal 76-100 [facility] Comment on above: Order Comment: Speci men Type: BLOOD SPECIMEN Ordering Facility: [facility] Address: [address] Performed By: #### L [id number] #### [facility] CLIA [id number] [address] [place] [address] Platelet aggregation ristocetin induced 1500 ug/mL (PRP) [Rel units/Vol] 95 % Max Normal 76-100 [facility] Comment on above: Order Comment: Speci men Type: BLOOD SPECIMEN Ordering Facility: [facility] Address: [address] Performed By: #### L [id number] #### [facility] CLIA [id number] [address] [place] [address] Platelet aggregation ristocetin induced 600 ug/mL (PRP) [Rel units/Vol] 20 % Max High 0-9 [facility] Comment on above: Order Comment: Speci men Type: BLOOD SPECIMEN Ordering Facility: [facility] Address: [address] [place] [address] Performed By: #### L [id number] #### [facility] CLIA [id number] [address] [place] [address] Platelet aggregation ristocetin induced 900 ug/mL (PRP) [Rel units/Vol] 100 % Max Normal 50-100 [facility] Comment on above: Order Comment: Speci men Type: BLOOD SPECIMEN Ordering Facility: [facility] Address: [address] [place] [address] Performed By: #### L [id number] #### [facility] CLIA [id number] [address] [place] [address] Platelet aggregation thrombin induced ATP secretion 1 U/mL (Bld) [Rel units/Vol] 0.0 nM Low 0.2-1.6 [facility] Comment on above: Order Comment: Speci men Type: BLOOD SPECIMEN Ordering Facility: [facility] Address: [address] [place], [place] [address] Performed By: #### L [id number] #### [facility] CLIA [id number] [address] [place] [address] Platelet aggregation thrombin induced ATP secretion 5 U/mL (Bld) [Rel units/Vol] 0.0 nM Low 0.2-1.7 [facility] Comment on above: Order Comment: Speci men Type: BLOOD SPECIMEN Ordering Facility: [facility] Address: [address] [place], [place] [address] Performed By: #### L [id number] #### [facility] CLIA [id number] [address] [place] [address] [place] PLATELET FUNCTION CAon 01-11 Platelet function (closure time) collagen+ADP induced (Bld) [Time] 87 CT (seconds) Normal <118 [facility] Comment on above: Order Comment: Javier hoang Type: BLOOD SPECIMEN Ordering Facility: [facility] Address: [address] [place] [address] Performed By: #### P [id number] #### [facility] CLIA [id number] [address] [place] [address] Platelet function (closure time) collagen+EPINEPHrine induced (Bld) [Time] 144 CT (seconds) Normal <194 [facility] Comment on above: Order Comment: Javier hoang Type: BLOOD SPECIMEN Ordering Facility: [facility] Address: [address] [place] [address] Performed By: #### P LTSCN #### [facility] CLIA [id number] [address] [place] [address] OF [place] PT panel Coag (PPP)on 2021 INR Coag (PPP) [Relative time] 1.0 {INR} Normal 0.9-1.3 [facility] Comment on above: Order Comment: Javier hoang Type: BLOOD SPECIMEN Ordering Facility: [facility] Address: [address] [place] [address] Result Comment: Le min K Antagonist (VKA) Therapeutic Range: INR 2 to 3 (Target INR of 2.5) Note: For patients treated with VKA drugs, such as warfarin, the [place] [employer] 2012 Guideline recommends a therapeutic INR range of 2 to 3 (target INR of 2.5). This recommendation includes high-risk patients with antiphospholipid syndrome with previous arterial or venous thromboembolism, current-generation mechanical or bioprosthetic aortic heart valve replacement. Note: Patients with mechanical aortic valve replacement and additional risk factors for thromboembolic events (atrial fibrillation, previous thromboembolism, LV dysfunction, hypercoagulable conditions) or an older generation mechanical AVR (i.e., ball in-Cage) or any mechanical MVR should have a INR therapeutic range of 2.5 to 3.5 (target INR of 3). Selvin GH, et al. Chest 2012, 141:7S-47S Ira RA, et al. [facility] 2017, 70: 252-289 Performed By: #### 3 4528-0, 26414-5 #### [facility] CLIA [id number] [address] [place], [place] [id number] [place] [address] [place] PT Coag (PPP) [Time] 10.0 s Normal 9.7-13.0 [facility] Comment on above: Order Comment: Speci natalya Type: BLOOD SPECIMEN Ordering Facility: [facility] Address: [address] [address] Performed By: #### 3 4528-0, 03259-6 #### [facility] IA [id number] [address] [place], [place] [id number] [place] [address] OF [place] VON WILLEBRAND PNL (VWFPN)on 01-11-2022 Bound rFVIII/vWf Ag IA (P) [Relative ratio] 1.2 Normal >=0.5 [facility] Comment on above: Order Comment: Speci natalya Type: BLOOD SPECIMEN Ordering Facility: [facility] Address: [address] [address] Performed By: #### L [id number] #### [facility] CLIA [id number] [address] [place] [address] [place] Coagulation factor VIII activity actual/normal Coag (PPP) [Relative time] 67 % Normal 50-173 [facility] Comment on above: Order Comment: Speci men Type: BLOOD SPECIMEN Ordering Facility: [facility] Address: [address] [address] Performed By: #### L [id number] #### [facility] CLIA [id number] [address] [place] [address] [place] Platelet aggregation ristocetin induced Ql (PRP) Normal [facility] Comment on above: Order Comment: Bebai natalya Type: BLOOD SPECIMEN Ordering Facility: [facility] Address: [address] [address] Result Comment: Incr eased dose response at 600 ug/mL ristocetin. Performed By: #### L [id number] #### [facility] CLIA [id number] [address] [place] [address] [place] vWf Ag actual/normal IA (PPP) [Relative mass conc] 56 % Normal 50-173 [facility] Comment on above: Order Comment: [facility]i [facility] Type: BLOOD SPECIMEN Ordering Facility: [facility] Address: [address] [place] [address] Performed By: #### L [id number] #### [facility] CLIA [id number] [address] [place] [address] OF [place] vWf multimers Ql (PPP) Normal [facility] Comment on above: Order Comment: [facility] Type: BLOOD SPECIMEN [facility]ing Facility: [facility] Address: [address] [place] [address] Result Comment: Assa y of von Willebrand multimers was performed by an agarose gel electrophoresis followed by immunofixation with anti-von Willebrand factor antiserum. There is a normal multimer distribution with low intensity of bands. Performed By: #### L [id number] #### [facility] CLIA [id number] [address] [place] [address] [place] vWf ristocetin cofactor act/vWf Ag (PPP) [Ratio] 1.0 Normal >=0.5 [facility] Comment on above: Order Comment: [facility] Type: BLOOD SPECIMEN [facility]ing [facility]: [facility] Address: [address] [place] [address] Performed By: #### L [id number] #### [facility] CLIA [id number] [address] [place] [address] OF [place] vWf ristocetin cofactor Qn (PPP) 55 % Normal 42-146 [facility] Comment on above: Order Comment: [facility] Type: BLOOD SPECIMEN [facility]ing Facility: [facility] Address: [address] [place] [address] Result Comment: This test was developed and its performance characteristics determined by [facility] [place] [facility] It has not been cleared or approved by the FDA. [facility] is regulated under CLIA as qualified to perform high-complexity testing. This test is used for clinical purposes. It should not be regarded as investigational or for research. Performed By: #### L [id number] #### [facility] CLIA [id number] [address] [place] [address] vWf.collagen binding activity actual/normal IA (PPP) [Relative ratio] 47 % Normal 41-161 [facility] Comment on above: Order Comment: Javier hoang Type: BLOOD SPECIMEN Ordering Facility: [facility] Address: [address] [place] [address] Result Comment: This test was developed and its performance characteristics determined by [facility] [place] ([facility] It has not been cleared or approved by the FDA. [facility] is regulated under CLIA as qualified to perform high-complexity testing. This test is used for clinical purposes. It should not be regarded as investigational or for research. Performed By: #### L [id number] #### [facility] CLIA [id number] [address] [place] [address] vWf.collagen binding activity/vWf Ag IA (PPP) [Ratio] 0.8 Normal >=0.6 [facility] Comment on above: Order Comment: Javier hoang Type: BLOOD SPECIMEN Ordering Facility: [facility] Address: [address] [address] Performed By: #### L [id number] #### [facility] CLIA [id number] [address] [place] [address] OF [facility] aPTT PPPon 01-11-2022 aPTT Coag (PPP) [Time] 29.1 s Normal 23.0-32.4 [facility] Comment on above: Order Comment: Javier hoang Type: BLOOD SPECIMEN Ordering Facility: [facility] Address: [address] [place] [address] [place] [address] Performed By: #### 3 4528-0, 54966-2 #### [facility] CLIA [id number] [address] [facility] [place] [address] [facility] CNPDejah 01-09-2022 CNPN Telephone (HEMTSA) NICOLETTE FERNANDEZ ([id number]) 1985 F Date Time Provider Department 01/09/22 ASHLYN RODRIGUEZ During your visit today, we recorded the following information about you: Ashlyn Rodriguez RN 01/09/2022 10:27 AM Signed Pt left a to ask what labs are ordered and if she needs to go to [place] for the Platelet aggregation if ordered. I attempted to call pt back to inform her of labs ordered. She will need to go to [place] for the Plt aggregation. Updated on phone appt 01/12 with Anthony. Encouraged to call with any additional questions or concerns. Ashlyn Rodriguez RN Allergies As of Date: 01/09/2022 Noted Allergy Reaction MORPHINE 07/09/2014 11 - Vomiting Comments: Severe Urinary retention, severe vomiting VANCOMYCIN 12/28/2021 2 - Rash Date Reviewed: 12/28/2021 Reviewed by: Rivka Patricia MA - Fully Assessed Reason for Visit: Orders [681] Patient Question [3667] Prescriptions as of 01/09/2022 - buPROPion XL (WELLBUTRIN XL) 150 mg 24 hr tablet bupropion HCl XL 150 mg 24 hr tablet, extended release TAKE 1 TABLET BY MOUTH EVERY DAY DIRECTED - cholecalciferol, Vitamin D3, (VITAMIN D3) 1,250 mcg (50,000 unit) cap capsule cholecalciferol (vitamin D3) 1,250 mcg (50,000 unit) capsule TAKE 1 CAPSULE BY MOUTH 2 TIMES A WEEK - escitalopram oxalate (LEXAPRO) 20 mg tablet escitalopram 20 mg tablet TAKE 1 TABLET BY MOUTH EVERY DAY - dupilumab (DUPIXENT PEN) 300 mg/2 mL pen Dupixent 300 mg/2 mL subcutaneous pen injector - crisaborole (EUCRISA) 2 % Eucrisa 2 % topical ointment daily - linaCLOtide (LINZESS) 72 mcg capsule Linzess 72 mcg capsule TAKE 1 CAPSULE BY MOUTH EVERY DAY ON AN EMPTY STOMACH - ketoconazole (NIZORAL) 2 % cream ketoconazole 2 % topical cream PRN - metoprolol tartrate, short acting, (LOPRESSOR) 50 mg tablet metoprolol tartrate 50 mg tablet TAKE 1 TABLET BY MOUTH TWICE A DAY - modafinil (PROVIGIL) 100 mg tablet modafinil 100 mg tablet Take 1 tablet twice a day by oral route for 90 days. - promethazine (PHENERGAN) 25 mg tablet promethazine 25 mg tablet Take 0.5 tablets as needed by oral route for 8 days. - sodium chloride 1 gram tab q 24 HR. - sulfamethoxazole-trim ethoprim (BACTRIM DS,SEPTRA DS) 800-160 mg per tablet Take 1 tablet by mouth as needed. - triamcinolone (KENALOG) 0.025 % ointment triamcinolone acetonide 0.025 % topical ointment APPLY TO RASH ON CHEST DAILY FOR 2 WEEKS Problem List As Of Date: 01/09/2022 (None) Encounter Status:Closed by ASHLYN RODRIGUEZ on 01/09/22 [facility] Office (JANAE) NICOLETTE FERNANDEZ ([id number]) 1985 F Date Time Provider Department 12/29/21 4:00 PM MIN LEWIS During your visit today, we recorded the following information about you: Temperature Pulse Respiration Blood pressure 97.7 degrees 82/minute 16/minute 113/67 Min Lewis MD 01/08/2022 1:21 PM Signed NAME: Nicolette Fernandez CLINIC NO.: [id number] DATE OF SERVICE: December 29, 2021 Referring Provider: Laura Still Consultation requested by Dr. Still for an opinion regarding Ms. Nicolette Fernandez, and my final recommendations will be communicated back to the requesting physician by way of shared medical record or letter via US mail. 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 I will plan to get her baseline studies done and will recommend bleeding prevention plan for her. Currently patient is able to use Amicar, Stimate we can provide DDAVP as needed for more invasive procedures. She has no bleeding gums and dental work has never been an issue. She bruises easily and surgeries take a long time to heal. PLAN: 1. Call 2 weeks to finalize plan - HPI: CASE HISTORY: Reverse chronological order 10/27/2021 platelet Tempus granule deficiency diagnosed following the diagnosis of her daughter with the same. new pacer placed for sick sinus syndrome. 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 11/07/2016 neurocardiogenic syncope and seizures. Consistent with POTS syndrome. Dr. England from [place]. 2011 pacemaker placed following EP study in [facility]. Initial Visit, December 29, 2021: Nicolette Fernandez presents today Hematology and Oncology evaluation. 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 Patient recalls that her mother and aunt also bled a lot and have a history of anemia. - REVIEW OF SYSTEMS Per HPI and otherwise negative by full review of organ systems. - ECOG PERFORMANCE STATUS: 0 PHYSICAL EXAMINATION: Vitals: BP 113/67 Pulse 82 Temp (Src) 97.7 (Temporal) Resp 16 SpO2 99% There is no height or weight on file to calculate BSA. Exam limited to gross visualization where appropriate due to COVID-19. Gen.: This is an age-appropriate patient in no acute distress. Head: Appears atraumatic with no visible lesions. Eyes: Pupils equally round and reactive to light, extraocular muscles are intact. Neck: Supple. Mouth: Masked. Respiratory: Appears to be respiring comfortably. Neurologic: Nonfocal to gross visualization. Alert and oriented ?3. Psychiatric: No evidence of inappropriate anxiety or depression. Skin: Visible areas of skin without rash, lesions, wounds or petechiae. Occasional bruises noted on her arm. - ALLERGIES: ALLERGIES Allergen Reactions Morphine Vomiting Severe Urinary retention, severe vomiting Vancomycin Rash MEDICATIONS: buPROPion XL (WELLBUTRIN XL) 150 mg 24 hr tablet bupropion HCl XL 150 mg 24 hr tablet, extended release TAKE 1 TABLET BY MOUTH EVERY DAY DIRECTED cholecalciferol, Vitamin D3, (VITAMIN D3) 1,250 mcg (50,000 unit) cap capsule cholecalciferol (vitamin D3) 1,250 mcg (50,000 unit) capsule TAKE 1 CAPSULE BY MOUTH 2 TIMES A WEEK escitalopram oxalate (LEXAPRO) 20 mg tablet escitalopram 20 mg tablet TAKE 1 TABLET BY MOUTH EVERY DAY dupilumab (DUPIXENT PEN) 300 mg/2 mL pen Dupixent 300 mg/2 mL subcutaneous pen injector crisaborole (EUCRISA) 2 % Eucrisa 2 % topical ointment daily linaCLOtide (LINZESS) 72 mcg capsule Linzess 72 mcg capsule TAKE 1 CAPSULE BY MOUTH EVERY DAY ON AN EMPTY STOMACH ketoconazole (NIZORAL) 2 % cream ketoconazole 2 % topical cream PRN metoprolol tartrat (more content not included)... Normal [facility] Cardiovascular Lab Reporton 04-08-2021 Cardiovascular Lab Report [facility] Patient Name: [facility] Nicolette MR #: [id number] Department of Physician: Judy England M.D. Medicine Service Date: 04/08/2021 Division of Birthdate: 1985 Cardiology Room #: [facility] [place] [address] Cardiovascular Laboratory Report PROCEDURE PERFORMED: Pacemaker pulse generator replacement. INDICATION FOR REPLACEMENT: the patient is a 35-year-old woman who has had a dual-chamber pacemaker in place for over a decade. The current unit has reached its end of battery service indicator and will require replacement. DESCRIPTION OF PROCEDURE: After written informed consent was obtained, she was brought to the pacemaker laboratory in the fasting state. The left subclavicular fossa over the site of the previous pulse generator was prepped and draped in the usual manner and 1% Xylocaine solution infiltrated for local anesthesia. Following initial sharp incision meticulous blunt dissection was employed to open the subfascial pocket wherein the device lie. It was removed and connected to a new Biotronik Edora dual-chamber pacing system. This was placed in the previously created subfascial pocket. However, because the size and shape of this device were significantly different than the explanted 1, a revision of the pocket was performed. Via off field telemetry, adequate sensing and pacing levels were determined. The right ventricular lead showed a pacing threshold of 2.2 V at 0.75 milliseconds with R-wave amplitude of 12.5 and impedance of 1404 ohms. The right atrial lead showed a pacing threshold of 1.5 V at 0.4 milliseconds pulse with a P-wave amplitude of 2.4 mV and impedance of 390 ohms. It was noted that she would only pace atrially. The pocket was then irrigated with antibiotic solution. The fascial layer then closed with a continuous 2-0 Vicryl suture. The subdermal area with interrupted 3-0 Biosyn sutures placed utilizing a buried knot technique and the skin surface was closed with Dermabond glue. The wound was dressed with a Telfa pad and Tegaderm dressing. Sponge and needle counts were correct at the end of the case and prior to the procedure, the patient received 1 g of intravenous vancomycin as antibiotic prophylaxis. Conscious sedation was maintained throughout the case with intravenous midazolam and fentanyl. She was returned to the holding area in stable hemodynamic condition. FINAL IMPRESSIONS: 1. Dual chamber pacemaker replacement. 2. Conscious sedation. 3. Revision of pacemaker pocket. Electronically Signed by: Judy England M.D. 04/08/2021 02:42 P Judy England M.D. Date Dict: 04/08/2021/10:02 Aure/Judy England M.D. Date Trans: 04/08/2021 10:29 A/shekhar [id number] cc: Laura Still M.D. [address] [place] [address] [facility] POC SARS COV2 IDon 2 SARS-CoV-2 (COVID-19) RNA LYSSA+probe Ql (Unsp spec) Negative Normal NEGATIVE [facility] Comment on above: Result Comment: ID N OW COVID-19 assay performed on the ID NOW Instrument is a rapid molecular in vitro diagnostic test utilizing an isothermal nucleic acid amplification technology intended for the qualitative detection of nucleic acid from the SARS-CoV-2 virus in direct anterior nasal (nasal), nasopharyngeal or throat swabs from individuals who are suspected of COVID-19 by their healthcare provider within the first seven days of the onset of symptoms. Testing is limited to laboratories certified under the Clinical Laboratory Improvement Amendments of 1988 (CLIA), 42 U.S.C. ???263a,that meet the requirements to perform high, moderate, or waived complexity tests. The ID NOW COVID-19 assay is also authorized for use at the Point of Care (POC), i.e., in patient care settings operating under a CLIA Certificate of Waiver, Certificate of Compliance, or Certificate of Accreditation. Performed By: #### 3 1921 #### [facility] [address] *MRSA/MSSA DNA NASALon 03-24 *MRSA/MSSA DNA NASAL Clinical Report: (D ) Specimen: NASAL SWAB Collected: 03/24/2021 17:10 Status: Final Last Updated: 03/25/2021 21:30 MSSA DNA (Final) Negative MRSA DNA (Final) Negative Normal [facility] Comment on above: Performed By: #### 3 [id number] #### [facility] [address] BASIC METABOLIC PANELon 02-27 Calcium [Mass/Vol] 9.5 mg/dL Normal 8.6-10.3 [facility] Comment on above: Performed By: #### 0 0071 #### [facility] [address] Chloride [Moles/Vol] 104 mmol/L Normal 98-107 [facility] Comment on above: Performed By: #### 0 0071 #### [facility] [address] [place] [place] [address], [place] CO2 [Moles/Vol] 29 mmol/L Normal 21-[address] [facility] Comment on above: Performed By: #### 0 0071 #### [facility] [address] [place] [place] [address], [place] Creatinine [Mass/Vol] 0.77 mg/dL Normal 0.60-1.20 [facility] Comment on above: Performed By: #### 0 0071 #### [facility] [address] [place] [place] [address], [place] GFR/1.73 sq M.predicted among blacks MDRD (S/P/Bld) [Vol rate/Area] mL/min/{1.73_m2} Normal >60 [facility] Comment on above: Performed By: #### 0 0071 #### [facility] [address] [place] [place] [address], [place] GFR/1.73 sq M.predicted among non-blacks MDRD (S/P/Bld) [Vol rate/Area] mL/min/{1.73_m2} Normal >60 [facility] Comment on above: Performed By: #### 0 0071 #### [facility] [address] [place] [address], [place] Glucose [Mass/Vol] 85 mg/dL Normal 70-100 [facility] Comment on above: Performed By: #### 0 0071 #### [facility] [address] [place] [address], [place] Potassium [Moles/Vol] 3.9 mmol/L Normal 3.5-5.1 [facility] Comment on above: Performed By: #### 0 0071 #### [facility] [address] [place] [address], [place] Sodium [Moles/Vol] 139 mmol/L Normal 136-145 [facility] Comment on above: Performed By: #### 0 0071 #### [facility] [address] [facility] [place] [id number], [facility] Urea nitrogen [Mass/Vol] 9 mg/dL Normal 7-25 [facility] Comment on above: Performed By: #### 0 0071 #### [facility] [address] [place] [place] [address], [facility] CBC W/DIFFon 03-24-2021 ABS IMM GRANS 0.1 10*3/uL Normal 0.0-0.2 The [facility] Comment on above: Performed By: #### 5 102 #### [facility] [address] [facility] [place] [address], [facility] ABS NEUTROPHILS 6.6 10*3/uL Normal 1.6-7.6 [facility] Comment on above: Performed By: #### 5 102 #### [facility] [address] [facility] [place] [address], [facility] Basophils (Bld) [#/Vol] 0.1 10*3/uL Normal 0.0-0.2 [facility] Comment on above: Performed By: #### 5 102 #### [facility] [address] [facility] [place] [address], [facility] Basophils/100 WBC (Bld) 0.7 % Normal 0.0-1.0 [facility] Comment on above: Performed By: #### 5 102 #### [facility] [address] [facility] [place] [id number], [facility] Eosinophils (Bld) [#/Vol] 0.1 10*3/uL Normal 0.0-0.5 [facility] Comment on above: Performed By: #### 5 102 #### [facility] [address] [place] [address], [facility] Eosinophils/100 WBC (Bld) 1.2 % Normal 0.0-6.0 [facility] Comment on above: Performed By: #### 5 0103 #### [facility] [address] [facility] Erythrocyte distribution width (RBC) [Ratio] 12.0 % Normal 11.5-15.0 [facility] Comment on above: Performed By: #### 5 3 #### [facility] [address] [facility] [place] [address], [facility] Hematocrit (Bld) [Volume fraction] 43.0 % Normal 36.0-45.0 [facility] Comment on above: Performed By: #### 3 #### [facility] [address] [facility] [address], [facility] Hemoglobin (Bld) [Mass/Vol] 15.1 g/dL High 12.0-15.0 [facility] Comment on above: Performed By: #### 5 3 #### [facility] [address] [facility]. [address] IMMATURE GRANS 0.5 % Normal 0.0-1.0 The [facility] Comment on above: Performed By: #### 5 3 #### [facility] [address] [facility] [address], [facility] Lymphocytes (Bld) [#/Vol] 2.7 10*3/uL Normal 1.2-4.0 [facility] Comment on above: Performed By: #### 5 3 #### [facility] [address] [facility] [address], [facility] Lymphocytes/100 WBC (Bld) 25.7 % Normal 20.0-45.0 [facility] Comment on above: Performed By: #### 5 3 #### [facility] [address] [place] [address], [facility] MCH (RBC) [Entitic mass] 32.1 pg Normal 27.0-33.0 [facility] Comment on above: Performed By: #### 5 0103 #### [facility] [address] [facility] [address] MCHC (RBC) [Mass/Vol] 35.1 g/dL High 32.0-35.0 [facility] Comment on above: Performed By: #### 3 #### [facility] [address] [facility] [address], [facility] MCV (RBC) [Entitic vol] 91.5 fL Normal 82.0-98.0 [facility] Comment on above: Performed By: #### 102 #### [facility] [address] [place] [address], [facility] Monocytes (Bld) [#/Vol] 0.9 10*3/uL Normal 0.1-1.0 [facility] Comment on above: Performed By: #### 3 #### [facility] [address] [facility]. [address] MONOS 8.5 % Normal 5.0-12.0 [facility] Comment on above: Performed By: #### 5 102 #### [facility] [address] Neutrophils/100 WBC (Bld) 63.4 % Normal 40.0-72.0 [facility] Comment on above: Performed By: #### 5 3 #### [facility] [address] [facility]. [address] Nucleated RBC/100 WBC (Bld) [Ratio] 0 % Normal 0-0 [facility] Comment on above: Performed By: #### 5 3 #### [facility] [address] [facility] [address], [facility] PLAT CNT 281 10*3/uL Normal 150-400 [facility] Comment on above: Performed By: #### 3 #### [facility] [address] [place] [address], [facility] RBC (Bld) [#/Vol] 4.70 10*6/uL Normal 3.80-5.00 [facility] Comment on above: Performed By: #### 5 0103 #### [facility] [address] [place] [place] [address], [facility] WBC (Bld) [#/Vol] 10.36 10*3/uL Normal 4.00-10.60 [facility] Comment on above: Performed By: #### 5 0103 #### [facility] [address] [place] [address], [facility] Progress Noteon 06-28-2017 HIM IP Note OR Conveyor System Operator Normal [facility] Progress Noteon 03-29-2017 HIM IP Note OR Conveyor System Operator Normal [facility] Vital Signs Date Time Vital Sign Value Performing Clinician Faci lity 12-29-2021 15:42-0400 Body temperature 97.7 [degF] Min Lewis MD Work Phone: [facility] 12-29-2021 15:42-0400 Diastolic blood pressure 67 mm[Hg] Min Lewis MD Work Phone: [facility] 12-29-2021 15:42-0400 Heart rate 82 /min Min Lewis MD Work Phone: [facility] 12-29-2021 15:42-0400 Respiratory rate 16 /min Min Lewis MD Work Phone: [facility] 12-29-2021 15:42-0400 SaO2% (BldA) [Mass fraction] 99 % Min Lewis MD Work Phone: [facility] 12-29-2021 15:42-0400 Systolic blood pressure 113 mm[Hg] Min Lewis MD Work Phone: [facility] Encounters Encounter Date Encounter Type Care Provider Facility Start: 03-21-2023 ambulatory [place] KARABIN [facility] Start: 03-21-2023 ambulatory [facility] Start: 03-19-2023 End: 03-19-2023 ambulatory JACINTO YIN Not Available Start: 01-24-2023 End: 01-24-2023 ambulatory JANA FRANCIS Not Available Start: 09-20-2022 End: 09-20-2022 ambulatory [facility] Start: 07-31-2022 ambulatory Min castillo MD Work Phone: Hematology/Oncology Comment on above: Apt Start: 07-26-2022 Telephone encounter Min hay MD Work Phone: Hematology/Oncology Comment on above: Lab Orders Start: 05-18-2022 End: 05-19-2022 ambulatory BERNARDO PRAJAPATI Facility:[facility] Start: 04-24-2022 ambulatory Min castillo MD Work Phone: Hematology/Oncology Comment on above: Apt Start: 04-22-2022 Encounter for genera l adult medical examination without abnormal findings [facility] Start: 04-18-2022 End: 04-19-2022 ambulatory [facility] Facility:[facility] Start: 04-18-2022 End: 04-19-2022 Encounter for general adult medical examination without abnormal findings [facility] Facility:[facility] Start: 04-03-2022 Refill Brandee Jerez [facility] Work Phone: [facility] Comment on above: Refill Request Start: 03-21-2022 End: 03-22-[address] LAURA STILL Facility:[facility] Start: 03-13-2022 Refill Nargis rosenbaum [facility] Work Phone: Hematology/Oncology Comment on above: Refill Request Start: 01-22-2022 ambulatory Min castillo MD Work Phone: Hematology/Oncology Comment on above: Pacemaker Card Start: 01-12-2022 End: 01-13-2022 ambulatory Min Lewis MD Work Phone: Hematology/Oncology Comment on above: 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) Start: 01-12-2022 End: 01-13-2022 Telemedicine consultation with patient Min Lewis MD Work Phone: [facility] Start: 01-11-2022 End: 01-12-2022 [facility]ulatory [facility] Start: 01-09-2022 Telephone encounter Ashlyn Sawyer Hematology/Oncology Comment on above: Orders; Patient Ques tion Start: 12-29-2021 End: 12-29-2021 ambulatory Min Lewis MD Work Phone: Hematology/Oncology Comment on above: 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) Start: 12-29-2021 End: 12-29-2021 Patient encounter procedure Min Lewis MD Work Phone: [facility] Start: 12-28-2021 Chart abstracting Min zavala MD Work Phone: Hematology/Oncology Start: 04-08-2021 End: 04-09-2021 ambulatory JUDY TOMÁS Facility:[facility] Start: 10-11-2016 End: 10-11-2016 Unknown HEMANTONY R ZURDO [facility] Start: 09-11-2016 Unknown LAURA STILL [facility] Procedures Date Procedure Procedure Detail Performing Clinician Start: 10-11-2016 EKG 12-LEAD LAURA TESSY Start: 09-12-2016 PACER DAVON DUAL CARLOTA MBER W REPROG LAURA STILL Plan of Treatment Date Care Activity Detail Author Start: 02-26-2022 DEPRESSION ASSESSMENT DEPRESSION ASS ESSMENT [facility] Start: 01-11-2022 End: 01-08-2023 CBC W Auto Differential panel - Blood CBC + DIFF Lab Routine Platelet dense granule deficiency (HCC) Expected: 01/11/2022, Expires: 01/08/2023 [facility] Work Phone: Comment on above: Expected: 01/11/2022 , Expires: 01/08/2023 Start: 01-11-2022 End: 01-08-2023 Comprehensive metabolic 2000 panel - Serum or Plasma COMP METABOLIC PANEL Lab Routine Platelet dense granule deficiency (HCC) Expected: 01/11/2022, Expires: 01/08/2023 [facility] Work Phone: Comment on above: Expected: 01/11/2022 , Expires: 01/08/2023 Start: 01-08-2022 End: 03-10-2022 PLATELET AGGREGATION PANEL PLATELET AGGREGATION PANEL Lab Routine Platelet dense granule deficiency (HCC) Expected: 01/08/2022, Expires: 03/10/2022 [facility] Work Phone: Comment on above: Expected: 01/08/2022 , Expires: 03/10/2022 Start: 01-08-2022 End: 03-10-2022 VON WILLEBRAND DX PANEL VON WILLEBRAND DX PANEL Lab Routine Platelet dense granule deficiency (HCC) Expected: 01/08/2022, Expires: 03/10/2022 [facility] Work Phone: Comment on above: Expected: 01/08/2022 , Expires: 03/10/2022 Start: 10-27-2021 Influenza vaccination INFLUENZA (#1) [facility] Start: 02-26-2021 DEPRESSION ASSESSMENT DEPRESSION ASS ESSMENT [facility] Start: 2014 HPV TESTING HPV TESTING [facility] Start: 2005 PAP TESTING PAP TESTING [facility] Start: 10-02-2003 Urine microalbumin profile DTAP,TDAP,TD (1 - Tdap) [facility] Start: 2002 HEPATITIS C SCREENING HEPATITIS C SC COLLIN [facility] Start: 2002 HIV SCREENING HIV SCREENING [facility] Start: 1990 PNEUMOCOCCAL (1 - PCV) PNEUMOCOCCAL (1 - PCV) [facility] Start: 04-03-1985 COVID-19 VACCINE (#1) COVID-19 VACCI NE (#1) [facility] Start: 1984 HEPATITIS B (1 of 3 - 3-dose series) HEPATITIS B (1 of 3 - 3-dose series) [facility] Payers Date Payer Category Payer Medicaid [id number] 2015 Unknown [id number] 2015 Medicare MEDICARE MEDICAR E A AND B [id number] 2015-Present [phone] [place] [address] Medicare [id number] 1984 Unknown [id number] 1984 Unknown [id number] 1984 Unknown [id number] 1984 Unknown [id number] 1984 Unknown [id number] 1984 Unknown [id number] 1959 Medicaid [id number] 1960 Medicare [id number] Social History Date Type Detail Facility Start: [facility]28-2021 [facility] History of tobacco use Cigarette Smoker [facility] History of tobacco use Passive smoker [facility] Start: 12-28-2021 Tobacco use and exposure Smokeless t obacco non-user [facility] Start: 12-28-2021 Alcohol intake Current drinke r of alcohol (finding) [facility] Start: 1985 Sex Assigned At Not on file [facility] Start: 1985 Sex [facility] Start: 12-19-2021 End: 01-11-2022 Exposure to SARS-CoV-2 (event) Not sure [facility] Clinical Notes 12-29-2021 to 03-21-2023 Telephone Encounter - Rivka Patricia MA - 07/26/2022 4:03 PM EDTTelephone Encounter - Jana Jensen - 04/25/2022 8:15 AM ESTTelephone Encounter - Min Lewis MD - 04/24/2022 4:44 PM EST Note Date & Type Note Facility 03-21-2023 Note Nicolette 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 England) at our S[facility] in the [facility] at the [facility]. Chief Complaint: Rare syncope. Defecation syncope common. Last summer abrupt syncope while standing. Hit left elbow. Rare. Download device today. Good pacing, sensing and battery life. No arrhythmia. She continues modafinil (Dr. England), Lexapro, bupropion and metoprolol. Review of Systems Cardiovascular: Positive for near-syncope and syncope. Gastrointestinal: Positive for constipation. Genitourinary: Pelvic congestion syndrome and underwent hysterectomy 2017. Neurological: Positive for dizziness and light-headedness. Objective Vitals reviewed. Constitutional: Appearance: Healthy appearance. Not in distress. Neck: Vascular: No JVR. JVD normal. Pulmonary: Effort: Pulmonary effort is normal. Breath sounds: Normal breath sounds. No wheezing. No rhonchi. No rales. Chest: Chest wall: Not tender to palpatation. Cardiovascular: PMI at left midclavicular line. Normal rate. Regular rhythm. Normal S1. Normal S2. Murmurs: There is no murmur. No gallop. No click. No rub. Pulses: Intact distal pulses. Edema: Peripheral edema absent. Abdominal: General: Bowel sounds are normal. Palpations: Abdomen is soft. Tenderness: There is no abdominal tenderness. Musculoskeletal: Normal range of motion. General: No tenderness. Skin: General: Skin is warm and dry. Neurological: General: No focal deficit present. Mental Status: Alert and oriented to person, place and time. We reviewed.2020 Echocardiogram LEFT VENTRICLE: Normal chamber size. Normal left ventricular wall thickness. LV EF: Global left ventricular systolic function is hyperdynamic; ejection fraction is 65-70 %. No wall motion abnormalities. DIASTOLIC: Normal diastolic function. ATRIAL SEPTUM: Appears visually intact. LEFT ATRIUM: Normal chamber size. RIGHT ATRIUM: Normal chamber size. Pacer wire present. RIGHT VENTRICLE: Normal chamber size. Normal systolic function. Pacer wire is present. TRICUSPID VALVE: Normal mobility and thickness. Normal with trace regurgitation. MITRAL VALVE: Normal mobility and thickness. No mitral regurgitation. AORTIC VALVE: Normal trileaflet appearance. Normal leaflet mobility. No aortic regurgitation. AORTIC ROOT: Normal diameter and appearance. PULMONIC VALVE: Normal thickness and mobility. Normal with No regurgitation. PERICARDIUM: No evidence of pericardial effusion. IVC: Collapses with inspirations. IVC normal in size. CONCLUSION: Global left ventricular systolic function is hyperdynamic. The right ventricle is normal in size and systolic function. No significant valvular abnormalities. A pacemaker wire is seen. Assessment/Plan The primary encounter diagnosis was Postural orthostatic tachycardia syndrome. A diagnosis of Cardiac pacemaker in situ was also pertinent to this visit. Problem List Items Addressed This Visit Circulatory Cardiac pacemaker in situ Postural orthostatic tachycardia syndrome - Primary Other Visit Diagnoses Orthostatic hypotension Relevant Medications buPROPion XL (Wellbutrin XL) 150 mg 24 hr tablet Device interrogation today in clinic. 03/21/2023 Pt. here to see provider, see note. Device check and testing completed. Measurements stable. See enclosed data. Follow up as needed. CLS MAX RATE 140 CLS RESPONSE VERY HIGH CLS RESTING RATE CONTROL OFF 92%AF 1% ASSESSMENT CONSULTANT Continue all medications. [facility] 07-26-2022 Miscellaneous Notes Patient has an appt on 07/31/22. Would you like labs, if so place orders. Rivka Patricia MA documented in this encounter [facility] 04-25-2022 Miscellaneous Notes Lvm for patient to call us back to reschedule her appointments to 3 months out if she so desires. Jana Jensen Hi Nicolette - just a routine appointment - if it's not needed we can push it out 3 months - I'd like to see you 1-2 x per year until we have a good pattern for treatment for you. Scheduling - an you call please? documented in this encounter [facility] 03-13-2022 Miscellaneous Notes Script was sent to [facility], but was kicked back to us as this is not a specialty medication and should be sent to local pharmacy. Thank you [facility]: Message left for Nicolette to call us back to see where she would like this rx sent now. documented in this encounter [facility] 01-31-2022 Instructions Min Lewis MD - 01/31/2022 1:33 PM EST I would use the following strategy: I would reserve Platelet replacement for severe surgical bleeding as well as any spinal procedures / neuro surgeries. For routine day to day bleeding episodes (minor), I would recommend Amicar - PO 50 mg/kg q 6 hours for treatment of minor bleeding (nosebleeds, menorrhagia, oral mucosal bleeding or minor cuts / scrapes) IV for surgical prophylaxis or more sever bleeding I would use Stimate / Ddavp: IV - 0.3 mcg/kg (max 30 mcg) 30-60 minutes prior to surgery or Intranasal < 50 kg = 1 spray (150 mcg) 1 nostril Repeat after 12 hours For High risk surgery, including neurosurgery / spine surgery / ortho surgery Novoseven or activaed factor 7 concentrates - dodie-operative 90 mcg/kg/dose immediately prior to surgery and then every 2 hours during surgery and then every 2-6 hours post op for prevention of post-op bleeding. documented in this encounter [facility] 01-12-2022 Note HNO ID: [id number] Author: Min Lewis MD Service: ? Author Type: Physician Type: Progress Notes Filed: 01/31/2022 1:37 PM Note Text: NAME: Nicolette Fernandez CLINIC NO.: [id number] DATE OF SERVICE: January 12, 2022 ([facility]) Some elements in this clinic note that are critical to medical decision making have been carefully reviewed and included from a prior clinic note dated: December 29, 2021 (Jake) Referring Provider: Laura Still AMBULATORY TELEPHONE VISIT Nicolette Fernandez has consented to this telephone encounter. 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 new pacer placed for sick sinus syndrome. 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 11/07/2016 neurocardiogenic syncope and seizures. Consistent with POTS syndrome. Dr. England from [place]. 2011 pacemaker placed following EP study in [facility]. Updated Visit, January 12, 2022: Called and spoke with Nicolette as requested - after reviewing current literature and clinical practice, I would recommend the following for her: She has noted the following: Bleeds with surgery Bleeds with cuts Son uses DDAVP for skin surgeries etc. Initial Visit, December 29, 2021: Nicolette Fernandez presents today Hematology and Oncology evaluation. 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 Patient recalls that her mother and aunt also bled a lot and have a history of anemia. 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 I will plan to get her baseline studies done and will recommend bleeding prevention plan for her. Currently patient is able to use Amicar, Stimate or DDAVP as needed for more invasive procedures. She has no bleeding gums and dental work has never been an issue. She bruises easily and surgeries take a long time to heal. PLAN: I would use the following strategy: I would reserve Platelet replacement for severe surgical bleeding as well as any spinal procedures / neuro surgeries. For routine day to day bleeding episodes (minor), I would recommend Amicar - PO 50 mg/kg q 6 hours for treatment of minor bleeding (nosebleeds, menorrhagia, oral mucosal bleeding or minor cuts / scrapes) IV for surgical prophylaxis or more sever bleeding I would use Stimate / Ddavp: IV - 0.3 mcg/kg (max 30 mcg) 30-60 minutes prior to surgery or Intranasal < 50 kg = 1 spray (150 mcg) 1 nostril Repeat after 12 hours For High risk surgery, including neurosurgery / spine surgery / ortho surgery Novoseven or activaed factor 7 concentrates - dodie-operative 90 mcg/kg/dose immediately prior to surgery and then every 2 hours during surgery and then every 2-6 hours post op for prevention of post-op bleeding. I sent Rx's for DDAVP (intranasal) and Amicar RTC in 3 months - labs same day. Total Time Spent: 30 minutes Min Lewis MD, CPE Hematology and Oncology Services Provided at: [place], [place] CC: No referring provider defined for this encounter. Laura Still MD [address] [address] [facility] 01-12-2022 History of Presen t illness Narrative Images from the original note were not included. NAME: Nicolette Fernandez CLINIC NO.: [id number] DATE OF SERVICE: January 12, 2022 (Jake) Some elements in this clinic note that are critical to medical decision making have been carefully reviewed and included from a prior clinic note dated: December 29, 2021 (Jake) Referring Provider: Laura Still AMBULATORY TELEPHONE VISIT Nicolette Fernandez has consented to this telephone encounter. 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 new pacer placed for sick sinus syndrome. 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 11/07/2016 neurocardiogenic syncope and seizures. Consistent with POTS syndrome. Dr. England from [place]. 2011 pacemaker placed following EP study in [facility]. Updated Visit, January 12, 2022: Called and spoke with Nicolette as requested - after reviewing current literature and clinical practice, I would recommend the following for her: She has noted the following: Bleeds with surgery Bleeds with cuts Son uses DDAVP for skin surgeries etc. Initial Visit, December 29, 2021: Nicolette Fernandez presents today Hematology and Oncology evaluation. 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 Patient recalls that her mother and aunt also bled a lot and have a history of anemia. 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 I will plan to get her baseline studies done and will recommend bleeding prevention plan for her. Currently patient is able to use Amicar, Stimate or DDAVP as needed for more invasive procedures. She has no bleeding gums and dental work has never been an issue. She bruises easily and surgeries take a long time to heal. PLAN: I would use the following strategy: I would reserve Platelet replacement for severe surgical bleeding as well as any spinal procedures / neuro surgeries. For routine day to day bleeding episodes (minor), I would recommend Amicar - PO 50 mg/kg q 6 hours for treatment of minor bleeding (nosebleeds, menorrhagia, oral mucosal bleeding or minor cuts / scrapes) IV for surgical prophylaxis or more sever bleeding I would use Stimate / Ddavp: IV - 0.3 mcg/kg (max 30 mcg) 30-60 minutes prior to surgery or Intranasal < 50 kg = 1 spray (150 mcg) 1 nostril Repeat after 12 hours For High risk surgery, including neurosurgery / spine surgery / ortho surgery Novoseven or activaed factor 7 concentrates - dodie-operative 90 mcg/kg/dose immediately prior to surgery and then every 2 hours during surgery and then every 2-6 hours post op for prevention of post-op bleeding. I sent Rx's for DDAVP (intranasal) and Amicar RTC in 3 months - labs same day. Total Time Spent: 30 minutes Min Lewis MD, CPE Hematology and Oncology Services Provided at: [place], [place] CC: No referring provider defined for this encounter. Laura Still MD [address] [address] documented in this encounter [facility] 01-09-2022 Miscellaneous Notes Pt left a VM to ask what labs are ordered and if she needs to go to [place] for the Platelet aggregation if ordered. I attempted to call pt back to inform her of labs ordered. She will need to go to [place] for the Plt aggregation. Updated on phone appt 01/12 with Anthony. Encouraged to call with any additional questions or concerns. Ashlyn Rodriguez RN documented in this encounter [facility] 12-29-2021 Note HNO ID: [id number] Author: Min Lewis MD Service: ? Author Type: Physician Type: Progress Notes Filed: 01/08/2022 1:21 PM Note Text: NAME: Nicolette Fernandez [facility] NO.: [id number] DATE OF SERVICE: December 29, 2021 Referring Provider: Laura Still Consultation requested by Dr. Still for an opinion regarding Ms. Nicolette Fernandez, and my final recommendations will be communicated back to the requesting physician by way of shared medical record or letter via [place] mail. 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 I will plan to get her baseline studies done and will recommend bleeding prevention plan for her. Currently patient is able to use Amicar, Stimate we can provide DDAVP as needed for more invasive procedures. She has no bleeding gums and dental work has never been an issue. She bruises easily and surgeries take a long time to heal. PLAN: 1. 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 new pacer placed for sick sinus syndrome. 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 11/07/2016 neurocardiogenic syncope and seizures. Consistent with POTS syndrome. Dr. England from [place]. 2011 pacemaker placed following EP study in [facility]. Initial Visit, December 29, 2021: Nicolette Fernandez presents today Hematology and Oncology evaluation. 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 Patient recalls that her mother and aunt also bled a lot and have a history of anemia. REVIEW OF SYSTEMS Per HPI and otherwise negative by full review of organ systems. ECOG PERFORMANCE STATUS: 0 PHYSICAL EXAMINATION: Vitals: BP 113/67 Pulse 82 Temp (Src) 97.7 (Temporal) Resp 16 SpO2 99% There is no height or weight on file to calculate BSA. Exam limited to gross visualization where appropriate due to COVID-19. Gen.: This is an age-appropriate patient in no acute distress. Head: Appears atraumatic with no visible lesions. Eyes: Pupils equally round and reactive to light, extraocular muscles are intact. Neck: Supple. Mouth: Masked. Respiratory: Appears to be respiring comfortably. Neurologic: Nonfocal to gross visualization. Alert and oriented ?3. Psychiatric: No evidence of inappropriate anxiety or depression. Skin: Visible areas of skin without rash, lesions, wounds or petechiae. Occasional bruises noted on her arm. ALLERGIES: ALLERGIES Allergen Reactions Morphine Vomiting Severe Urinary retention, severe vomiting Vancomycin Rash MEDICATIONS: buPROPion XL (WELLBUTRIN XL) 150 mg 24 hr tablet bupropion HCl XL 150 mg 24 hr tablet, extended release TAKE 1 TABLET BY MOUTH EVERY DAY DIRECTED cholecalciferol, Vitamin D3, (VITAMIN D3) 1,250 mcg (50,000 unit) cap capsule cholecalciferol (vitamin D3) 1,250 mcg (50,000 unit) capsule TAKE 1 CAPSULE BY MOUTH 2 TIMES A WEEK escitalopram oxalate (LEXAPRO) 20 mg tablet escitalopram 20 mg tablet TAKE 1 TABLET BY MOUTH EVERY DAY dupilumab (DUPIXENT PEN) 300 mg/2 mL pen Dupixent 300 mg/2 mL subcutaneous pen injector crisaborole (EUCRISA) 2 % Eucrisa 2 % topical ointment daily linaCLOtide (LINZESS) 72 mcg capsule Linzess 72 mcg capsule TAKE 1 CAPSULE BY MOUTH EVERY DAY ON AN EMPTY STOMACH ketoconazole (NIZORAL) 2 % cream ketoconazole 2 % topical cream PRN metoprolol tartrate, short acting, (LOPRESSOR) 50 mg tablet metoprolol tartrate 50 mg tablet TAKE 1 TABLET BY MOUTH TWICE A DAY modafinil (PROVIGIL) 100 mg tablet modafinil 100 mg tablet Take 1 tablet twice a day by oral route for 90 days. promethazine (PHENERGAN) 25 mg tablet promethazine 25 m (more content not included)... [facility] 12-29-2021 History of Presen t illness Narrative Images from the original note were not included. NAME: Nicolette Fernandez CLINIC NO.: [id number] DATE OF SERVICE: December 29, 2021 Referring Provider: Laura Still Consultation requested by Dr. Still for an opinion regarding Ms. Nicolette Fernandez, and my final recommendations will be communicated back to the requesting physician by way of shared medical record or letter via mail. 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 I will plan to get her baseline studies done and will recommend bleeding prevention plan for her. Currently patient is able to use Amicar, Stimate we can provide DDAVP as needed for more invasive procedures. She has no bleeding gums and dental work has never been an issue. She bruises easily and surgeries take a long time to heal. PLAN: 1. 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 new pacer placed for sick sinus syndrome. 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 11/07/2016 neurocardiogenic syncope and seizures. Consistent with POTS syndrome. Dr. England from [place]. 2011 pacemaker placed following EP study in [facility]. Initial Visit, December 29, 2021: Nicolette Fernandez presents today Hematology and Oncology evaluation. 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 Patient recalls that her mother and aunt also bled a lot and have a history of anemia. REVIEW OF SYSTEMS Per HPI and otherwise negative by full review of organ systems. ECOG PERFORMANCE STATUS: 0 PHYSICAL EXAMINATION: Vitals: BP 113/67 Pulse 82 Temp (Src) 97.7 (Temporal) Resp 16 SpO2 99% There is no height or weight on file to calculate BSA. Exam limited to gross visualization where appropriate due to COVID-19. Gen.: This is an age-appropriate patient in no acute distress. Head: Appears atraumatic with no visible lesions. Eyes: Pupils equally round and reactive to light, extraocular muscles are intact. Neck: Supple. Mouth: Masked. Respiratory: Appears to be respiring comfortably. Neurologic: Nonfocal to gross visualization. Alert and oriented 3. Psychiatric: No evidence of inappropriate anxiety or depression. Skin: Visible areas of skin without rash, lesions, wounds or petechiae. Occasional bruises noted on her arm. ALLERGIES: ALLERGIES Allergen Reactions Morphine Vomiting Severe Urinary retention, severe vomiting Vancomycin Rash MEDICATIONS: buPROPion XL (WELLBUTRIN XL) 150 mg 24 hr tablet bupropion HCl XL 150 mg 24 hr tablet, extended release TAKE 1 TABLET BY MOUTH EVERY DAY DIRECTED cholecalciferol, Vitamin D3, (VITAMIN D3) 1,250 mcg (50,000 unit) cap capsule cholecalciferol (vitamin D3) 1,250 mcg (50,000 unit) capsule TAKE 1 CAPSULE BY MOUTH 2 TIMES A WEEK escitalopram oxalate (LEXAPRO) 20 mg tablet escitalopram 20 mg tablet TAKE 1 TABLET BY MOUTH EVERY DAY dupilumab (DUPIXENT PEN) 300 mg/2 mL pen Dupixent 300 mg/2 mL subcutaneous pen injector crisaborole (EUCRISA) 2 % Eucrisa 2 % topical ointment daily linaCLOtide (LINZESS) 72 mcg capsule Linzess 72 mcg capsule TAKE 1 CAPSULE BY MOUTH EVERY DAY ON AN EMPTY STOMACH ketoconazole (NIZORAL) 2 % cream ketoconazole 2 % topical cream PRN metoprolol tartrate, short acting, (LOPRESSOR) 50 mg tablet metoprolol tartrate 50 mg tablet TAKE 1 TABLET BY MOUTH TWICE A DAY modafinil (PROVIGIL) 100 mg tablet modafinil 100 mg tablet Take 1 tablet twice a day by oral route for 90 days. promethazine (PHENERGAN) 25 mg tablet promethazine 25 mg tablet Take 0.5 tablets as needed by oral route for 8 days. sodium chloride 1 gram tab q 24 HR. sulfamethoxazole-trimethoprim (BACTRIM DS,SEPTRA DS) 800-160 mg per tablet Take 1 tablet by mouth as needed. triamcinolone (KENALOG) 0.025 % ointment triamcinolone acetonide 0.025 % topical ointment APPLY TO RASH ON CHEST DAILY FOR 2 WEEKS LABORATORY VALUES: No results found for: WBC, RBC, HB, HCT, MCV, MCH, MCHC, RDWCV, PLT, MPV, GLUC, BUN, CREAT, NA, K, CHLOR, CO2, TPROT, ALB, CA, ALKPHOS, TBILI, AST, ALT, CHOL, TG, BETAMM DIAGNOSIS: (D69.1) Platelet dense granule deficiency (HCC) (primary encounter diagnosis) PAST MEDICAL HISTORY Diagnosis Date Platelet storage pool deficiency (HCC) POTS (postural orthostatic tachycardia syndrome) PAST SURGICAL HISTORY Procedure Laterality Date CYSTOSCOPY HEMORRHOIDECTOMY LAPAROSCOPY DIAGNOSTIC PACEMAKER PAST SURGICAL HISTORY OF Hand REMOVAL GALLBLADDER VAGINAL HYSTERECTOMY Social History Tobacco Use Smoking status: Some Days Types: Cigarettes Passive exposure: Current Smokeless tobacco: Never Substance Use Topics Alcohol use: Yes Drug use: Not Currently FAMILY HISTORY Problem Relation Age of Onset Hypertension Mother other (Prostate tumor) Father Hypertension Father Diabetes Father other (Coronary arteriosclerosis) Father other (Myocardial infarction) Father I spent a total of 60 minutes on the date of the service which included preparing to see the patient, [id number] patient care, completing clinical documentation, obtaining and/or reviewing separately obtained history, performing a medically appropriate examination, counseling and educating the patient/family/caregiver, ordering medications, tests, or procedures, communicating with other HCPs (not separately reported), and independently interpreting results (not separately reported). Min Lewis MD, CPE [facility] Provided at: [place], [place] CC: No referring provider defined for this encounter. Laura Still MD [address] [facility] [id number] documented in this encounter [facility] Evaluation note Diagnosis Platelet dense granule deficiency (HCC)- Primary Qualitative platelet defects [facility] Platelet dense granule deficiency (HCC)- Primary Qualitative platelet defects [facility] Platelet dense granule deficiency (HCC) Qualitative platelet defects Family history of bleeding disorder Family history of other blood disorders History of bleeding disorder Personal history of diseases of blood and blood-forming organs documented in this encounter [facility] Summary Purpose Family History No Family History Records FoundNo Family History Records FoundNo Family History Records FoundNo Family History Records FoundNo Family History Records FoundNo Family History Records FoundNo Family History Records Found Advance Directives No Advanced Directives Records FoundNo Advanced Directives Records FoundNo Advanced Directives Records FoundNo Advanced Directives Records FoundNo Advanced Directives Records FoundNo Advanced Directives Records FoundNo Advanced Directives Records Found Additional Source Comments INFORMATION SOURCE (unrecogn ized section and content) DATE CREATED AUTHOR 08/16/2017 [facility] DATE CREATED AUTHOR AUTHOR'S ORGANIZ ATION 11/01/2021 [facility] DATE CREATED AUTHOR AUTHOR'S ORGANIZ ATION 01/19/2022 [facility] DATE CREATED AUTHOR AUTHOR'S ORGANIZ ATION 05/21/2022 [facility] DATE CREATED AUTHOR AUTHOR'S ORGANIZ ATION 09/02/2022 [facility] DATE CREATED AUTHOR AUTHOR'S ORGANIZ ATION 03/20/2023 [facility] DATE CREATED AUTHOR AUTHOR'S ORGANIZ ATION 03/22/2023 [facility] Source Comments (unrecognize d section and content) In the event this informatio n is protected by the Federal Confidentiality of Alcohol and Drug Abuse Patient Records regulations: The Federal rules restrict any use of the information to criminally investigate or prosecute any alcohol or drug abuse patient.[facility] Foundation[facility] the event this information is protected by the Federal Confidentiality of Alcohol and Drug Abuse Patient Records regulations: The Federal rules restrict any use of the information to criminally investigate or prosecute any alcohol or drug abuse patient.[facility] Foundation[facility] the event this information is protected by the Federal Confidentiality of Alcohol and Drug Abuse Patient Records regulations: The Federal rules restrict any use of the information to criminally investigate or prosecute any alcohol or drug abuse patient.[facility] Foundation[facility] the event this information is protected by the Federal Confidentiality of Alcohol and Drug Abuse Patient Records regulations: The Federal rules restrict any use of the information to criminally investigate or prosecute any alcohol or drug abuse patient.[facility] Foundation[facility] the event this information is protected by the Federal Confidentiality of Alcohol and Drug Abuse Patient Records regulations: The Federal rules restrict any use of the information to criminally investigate or prosecute any alcohol or drug abuse patient.[facility] Foundation[facility] the event this information is protected by the Federal Confidentiality of Alcohol and Drug Abuse Patient Records regulations: The Federal rules restrict any use of the information to criminally investigate or prosecute any alcohol or drug abuse patient.[facility] the event this information is protected by the Federal Confidentiality of Alcohol and Drug Abuse Patient Records regulations: The Federal rules restrict any use of the information to criminally investigate or prosecute any alcohol or drug abuse patient.[facility] FoundationIn the event this information is protected by the Federal Confidentiality of Alcohol and Drug Abuse Patient Records regulations: The Federal rules restrict any use of the information to criminally investigate or prosecute any alcohol or drug abuse patient.[facility] FoundationIn the event this information is protected by the Federal Confidentiality of Alcohol and Drug Abuse Patient Records regulations: The Federal rules restrict any use of the information to criminally investigate or prosecute any alcohol or drug abuse patient.[facility] Foundation[facility] the event this information is protected by the Federal Confidentiality of Alcohol and Drug Abuse Patient Records regulations: The Federal rules restrict any use of the information to criminally investigate or prosecute any alcohol or drug abuse patient.[facility] Care Teams (unrecognized sec tion and content) Fisheries Specialist Relationship Specialty Start Date End Date Laura Still MD [address] [place] [address] PCP - General Family Medicine 07/27/14 Fisheries Specialist Relationship Specialty Start Date End Date Laura Still MD [address] [place] [address] PCP - General Family Medicine 07/27/14 Fisheries Specialist Relationship Specialty Start Date End Date Laura Still MD [address] [place] [address] PCP - General Family Medicine 07/27/14 Fisheries Specialist Relationship Specialty Start Date End Date Laura Still MD [address] [place] [address] PCP - General Family Medicine 07/27/14 Fisheries Specialist Relationship Specialty Start Date End Date Laura Still MD [address] [place] [address] PCP - General Family Medicine 07/27/14 Fisheries Specialist Relationship Specialty Start Date End Date Laura Still MD [address] [place] [address] PCP - General Family Medicine 07/27/14 Fisheries Specialist Relationship Specialty Start Date End Date Laura Still MD [address] [place] [address] PCP - General Family Medicine 07/27/14 Fisheries Specialist Relationship Specialty Start Date End Date Laura Still MD [address] [place] [address] PCP - General Family Medicine 07/27/14 Fisheries Specialist Relationship Specialty Start Date End Date Laura Still MD [address] [place] [address] PCP - General Family Medicine 07/27/14 Reason for Visit (unrecogniz ed section and content) Reason Comments platelet dense granule Reason Comments Orders Patient Question Reason Comments Established Patient Reason Onset Date Comments Refill Request 03/13/2022 Reason Onset Date Comments Refill Request 04/03/2022 Reason Comments Lab Orders FOR RECORDS PERTAINING TO PATIENTS WHO ARE OR HAVE BEEN ENROLLED IN A CHEMICAL DEPENDENCY/SUBSTANCEABUSE PROGRAM, SOME INFORMATION MAY BE OMITTED. This clinical summary was aggregated from multiple sources. Caution should be exercised in using it in the provision of clinical care. This summary normalizes information from multiple sources, and as a consequence, information in this document may materially change the coding, format and clinical context of patient data. In addition, data may be omitted in some cases. CLINICAL DECISIONS SHOULD BE BASED ON THE PRIMARY CLINICAL RECORDS. [employer] [facility]. provides no warranty or guarantee of the accuracy or completeness of information in this document.
== END 2023-03-22 16:43 | disposition home or self-care (01) ==
LOC: MAMMO 16:42
PROVIDERS: PCP Physician Assistant; Visit Provider Physician Assistant
DX: Z12.31 Encounter for screening mammogram for malignant neoplasm of breast (principal); Z80.3 Family history of malignant neoplasm of breast; Z80.41 Family history of malignant neoplasm of ovary; Z80.42 Family history of malignant neoplasm of prostate; Z80.49 Family history of malignant neoplasm of other genital organs
CPT/HCPCS: 77063; 77067

== ENCOUNTER 2023-05-18 08:40 | Outpatient (OUT) | payer MEDICARE, MEDICAID, SELFPAY ==
--- OUTSIDE RECORDS SUMMARY | 2023-05-18 08:44 | XMS_ITS | CCD ---
Author Organization [facility] Care Team Providers Care Spinal Surgeon Name Role Phone TESSYLAURA Vic Unavailable Unavailable CAROLINEENCAROL Unavailable Unavailable KEYUR RENNER R Unavailable Unavailable TESSY LAURA Ho Unavailable Unavailable TOMÁSJUDY Admitting Unavailable JUDY ENGLAND Attending Unavailable LAURA STILL Referring Unavailable TESSY [facility] Care Unavailable Tessy THOMAS, [facility] Primary Care Provider [phone] TESSY LAURA Vic Primary Care Unavailable MIN LEWIS Referring Unavailable Tessy THOMAS [facility] Primary Care Provider DR LAURA STILL Admitting Unavailable TESSY, DR GRIER Attending Unavailable TESSY, DR GRIER Primary Care Unavailable TESSY, DR GRIER Consulting Unavailable BEATRIZ, DR CASIE Castillo Consulting Unavailable BERNARDO PRAJAPATI Admitting Unavailable BERNARDO PRAJAPATI Attending Unavailable ALO, BERNARDO Primary Care Unavailable BERNARDO PRAJAPATI Consulting Unavailable ALO, BERNARDO Admitting Unavailable ALO, BERNARDO Attending Unavailable ALO, BERNARDO Primary Care Unavailable BERNARDO PRAJAPATI Consulting Unavailable TESSY LAURA Primary Care Unavailable ABSARAH JOSEPHEK Referring Unavailable MIN LEWIS Attending Unavailable TESSY [facility] Primary Care Unavailable MIN LEWIS Attending Unavailable ALEM CROCKETT Referring Unavailable [place] WHITE Attending Unavailable ALEM CROCKETT Referring Unavailable Tessy THOMAS, [facility] Primary Care Provider JACINTO YIN Attending Unavailable JACINTO YIN Attending Unavailable JANA FRANCIS Attending Unavailable JACINTO YIN Attending Unavailable BERNARDO PRAJAPATI Attending Unavailable Allergies Allergy Classification Reported Allergen(s) Allergy Type Date of Onset Reaction(s) Facility (16 sources) Morphine; Translations: [MORPHINE] Drug Allergy 2 Vomiting, Rash, GI intolerance [facility] (14 sources) Vancomycin; Translations: [VANCOMYCIN] Drug Allergy 2 Rash, Itching [facility] (2 sources) Latex; Translations: [LATEX] Propensity to adverse reactions to drug (disorder) [facility] (1 source) ALLERGIES NOT ON FILE; Translations: [ALLERGIES NOT ON FILE] Propensity to adverse reactions (disorder) [facility] Medications Current Medications Medication Drug Class(es) Dates Sig (Normalized) Sig (Original) 6-aminocaproic acid 500 mg oral tablet (6 sources) Antifibrinolytic Agent Start: 02-07-2022 aminocaproic acid (Amicar) 500 MG tablet Take 2 g by mouth in the morning and 2 g at noon and 2 g in the evening and 2 g before bedtime. 0 02/07/2022 Active Start: 01-31-2022 End: 02-10-2022 take 4 tablets by mouth every six hours aminocaproic acid (AMICAR) 500 mg tablet Indications: Platelet dense granule deficiency (HCC) , Family history of bleeding disorder , History of bleeding disorder Take 4 tablets by mouth every 6 hours for 10 days. 160 tablet 3 02/07/2022 Active Comment on above: Take 4 tablets by ms ut every 6 hours for 10 days. biotin 1 mg oral capsule (1 source) biotin 1 MG caps ule daily 0 Active 24 hr buPROPion hydrochloride 150 mg extended release oral tablet (11 sources) Aminoketone take 1 tablet by mouth every twenty-four hours in the morning buPROPion XL (Wellbutrin XL) 150 MG 24 hr tablet Take 150 mg by mouth in the morning. as directed. 0 Active take 1 tablet by mouth once chris y buPROPion XL (WELLBUTRIN XL) 150 mg 24 hr tablet bupropion HCl XL 150 mg 24 hr tablet, extended release TAKE 1 TABLET BY MOUTH EVERY DAY DIRECTED 0 Active Comment on above: bupropion HCl XL 150 mg 24 hr tablet, extended release TAKE 1 TABLET BY MOUTH EVERY DAY DIRECTED cholecalciferol 1.25 mg oral capsule (11 sources) Vitamin D take 1 capsule by mouth two times weekly cholecalciferol (Vitamin D-3) 1.25 MG (03521 UT) capsule TAKE 1 CAPSULE BY MOUTH 2 TIMES A WEEK 0 Active Comment on above: cholecalciferol (vit broussard D3) 1,250 mcg (50,000 unit) capsule TAKE 1 CAPSULE BY MOUTH 2 TIMES A WEEK clobetasol propionate 0.5 mg/ml topical solution (1 source) Corticosteroid Start: 023 clobetasol (Temovate) 0.05 % external solution APPLY TO SCALP AT BEDTIME 0 05/19/2022 Active crisaborole 0.02 mg/mg topical ointment (11 sources) Eucrisa 2 % oint ment daily 0 Active Comment on above: Eucrisa 2 % topical ointment daily desmopressin acetate 0.01 mg/actuat nasal spray (8 sources) Vasopressin Analog, Factor VIII Activator Start: 023 desmopressin (DDAVP) 0.01 % solution INSTILL 2 SPRAYS IN THE NOSE EVERY 12 HOURS 0 05/22/2022 Active Start: 04-04-2022 End: 05-04-2022 desmopressin (DDAVP) 10 mcg/ spray (0.1 mL) spry Use 2 Sprays in the nose every 12 hours. 5 mL 3 04/04/2022 Active Start: 03-09-2022 End: 04-03-2022 Desmopressin Acetate 150 mcg /spray (0.1 mL) spry Indications: Platelet dense granule deficiency (HCC) , Family history of bleeding disorder , History of bleeding disorder Use 1 [place] in the nose every 12 hours as needed for up to 10 days. 2.5 mL 3 03/09/2022 04/03/2022 Discontinued Start: 01-31-2022 End: 02-10-2022 Desmopressin Acetate 150 mcg /spray (0.1 mL) spry Indications: Platelet dense granule deficiency (HCC) Use 1 [place] in the nose every 12 hours as needed for up to 10 days. 2.5 mL 3 01/31/2022 02/10/2022 Active Start: 01-31-2022 End: 01-31-2022 desmopressin (DDAVP) 10 mcg/ spray (0.1 mL) spry Indications: Platelet dense granule deficiency (HCC) Use 2 Sprays in the nose every 12 hours as needed. 5 mL 3 01/31/2022 01/31/2022 Discontinued Comment on above: Use 1 [place] in the n ose every 12 hours as needed for up to 10 days. Use 2 Sprays in the nose every 12 hours as needed. Use 2 Sprays in the nose every 12 hours. 2 ml dupilumab 150 mg/ml auto-injector (11 sources) Interleukin-4 Receptor alpha Antagonist Dupixent 300 MG/2ML injection Comment on above: Dupixent 300 mg/2 mL subcutaneous pen injector escitalopram 20 mg oral tablet (11 sources) Serotonin Reuptake Inhibitor take 1 tablet by mouth in the morning escitalopram (Lexapro) 20 MG tablet Take 20 mg by mouth in the morning. 0 Active Comment on above: escitalopram 20 mg t ablet TAKE 1 TABLET BY MOUTH EVERY DAY fluocinolone acetonide 0.1 mg/ml topical oil (1 source) Corticosteroid fluocinolone ([place]-Smoothe) 0.01 % external oil PRN 0 Active ketoconazole 20 mg/ml topical cream (6 sources) Azole Antifungal End: 022 ketoconazole (NIZOral) 2 % cream PRN 0 Active Comment on above: ketoconazole 2 % top ical cream PRN linaclotide 0.072 mg oral capsule (11 sources) Guanylate Cyclase-C Agonist take 1 capsule by mouth once daily linaCLOtide (Linzess) 72 MCG capsule TAKE 1 CAPSULE BY MOUTH EVERY DAY ON AN EMPTY STOMACH 0 Active Comment on above: Linzess 72 mcg capsu le TAKE 1 CAPSULE BY MOUTH EVERY DAY ON AN EMPTY STOMACH meclizine hydrochloride 12.5 mg oral tablet (1 source) Antiemetic Start: 012 take 1 tablet by mouth three times daily as needed meclizine (Antivert) 12.5 MG tablet Take 12.5 mg by mouth 3 (three) times a day as needed. 0 07/27/2011 Active modafinil 100 mg oral tablet (11 sources) Sympathomimetic-like Agent Start: 021 take 1 tablet by mouth in the morning modafinil (Provigil) 100 MG tablet Take 1 tablet by mouth in the morning and 1 tablet before bedtime. 0 07/26/2020 Active Comment on above: modafinil 100 mg tab let Take 1 tablet twice a day by oral route for 90 days. Multiple Vitamins-Minerals (MULTIVITAMIN GUMMIES ADULT PO) (1 source) Start: 020 Multiple Vitamins-Minerals (MULTIVITAMIN GUMMIES ADULT PO) Opzelura 1.5 % cream (1 source) Start: 023 Opzelura 1.5 % cream sulfamethoxazole 400 mg / trimethoprim 80 mg oral tablet (11 sources) Dihydrofolate Reductase Inhibitor Antibacterial, Sulfonamide Antimicrobial sulfamethoxazole-tr imethoprim (Bactrim) 400-80 MG tablet Bactrim DS as needed 0 Active take 1 tablet by renetta th once as needed sulfamethoxazole-trimethoprim (BACTRIM D S,SEPTRA DS) 800-160 mg per tablet Take 1 tablet by mouth as needed. 0 Active Comment on above: Take 1 tablet by renetta th as needed. Completed/Discontinued Medications Medication Drug Class(es) Dates Sig (Normalized) Sig (Original) metoprolol tartrate 50 mg oral tablet (11 sources) beta-Adrenergic Adriana Start: 08-24-2017 take 1 tablet by mouth twice daily metoprolol tartrate, short acting, (LOPRESSOR) 50 mg tablet metoprolol tartrate 50 mg tablet TAKE 1 TABLET BY MOUTH TWICE A DAY 0 08/24/2017 Active Comment on above: metoprolol tartrate 50 mg tablet TAKE 1 TABLET BY MOUTH TWICE A DAY promethazine hydrochloride 25 mg oral tablet (11 sources) Phenothiazine Start: 08-27-2017 promethazine (PHENERGAN) 25 mg tablet promethazine 25 mg tablet Take 0.5 tablets as needed by oral route for 8 days. 0 08/27/2017 Active Comment on above: promethazine 25 mg t ablet Take 0.5 tablets as needed by oral route for 8 days. sodium chloride 1000 mg oral tablet (10 sources) Start: 08-27-2017 sodium chloride 1 gram tab q 24 HR. 0 08/27/2017 Active Comment on above: q 24 HR. triamcinolone acetonide 0.09582 mg/mg topical ointment (3 sources) Corticosteroid triamcinolone [...] Interpretation Reference Range Facility Follow-Upon 03-21-2023 Follow-Up [id number] Nicolette Fernandez 1985 F Date Provider Department Center 03/21/2023 [place] ONEILL [...] Alive Son Alive Sister Alive Level of Service:01390 [place] OFFICE/OUTPATIENT ESTABLISHED LOW MDM 20 MIN Normal [facility] 03-07-2023 Refill [id number] Nicolette Fernandez 1985 F Date Provider Department Center 03/07/2023 JUDY MARIN [facility] No family history on file Reason for Visit and Comments: Med Refill [[id number]] Normal [place] CNPDejah 08-22-2022 CNPN Telephone (HEMASA) NICOLETTE FERNANDEZ ([id number]) 1985 F Date Time Provider Department 08/22/22 [...] Date Reviewed: 04/24/2022 Reviewed by: Lisa Arrieta APRN.WEALTH MANAGEMENT DIRECTOR - Fully Assessed Reason for Visit: Lab Orders [[id number]] Prescriptions as of 09/01/2022 - desmopressin (DDAVP) [...] Encounter Status:Closed by RIVKA PATRICIA on 09/01/22 [facility] CNPN Telephone ([place]) FERNANDEZNICOLETTE AUSTIN ([id number]) 1985 F Date Time Provider Department 07/26/22 [...] Date Reviewed: 04/24/2022 Reviewed by: Lisa Arrieta APRN.WEALTH MANAGEMENT DIRECTOR - Fully Assessed Reason for Visit: Lab Orders [[id number]] Prescriptions as of 08/01/2022 - desmopressin (DDAVP) [...] Status:Closed by RIVKA PATRICIA on 08/01/22 Normal [facility] 05-20-2022 Refill [id number] Nicolette Fernandez 1985 F Date Provider Department Center 05/20/2022 Anu-JUDY ENGLAND [facility] No family history on file Reason for Visit and Comments: Med Refill [[id number]] Normal [place] GLYCOHEMOGLOBIN A1Con 2022 ADA RECOMMENDATION SEE BELOW Normal [facility] Comment on above: Result Comment: ADA RECOMMENDED LIMIT 4.0 - 6.0 ADA THERAPEUTIC TARGET < 7.0 ACTION SUGGESTED > 7.0 Performed By: #### A 1C #### [facility] [address] [address] [address] Macy Vázquez Glucose [Mass/Vol] 91 mg/dL Normal [facility] Comment on above: Performed By: #### A 1C #### [facility] [address] [place], [place] [address] Dr. Macy Vázquez HbA1c (Bld) [Mass fraction] 4.8 % Normal 4.5-6.2 [facility] Comment on above: Performed By: #### A 1C #### [facility] [address] [address] [address] Macy Vázquez POTASSIUMon 05-18-2022 Potassium [Moles/Vol] 3.6 mmol/L Normal 3.5-5.1 [facility] Comment on above: Performed By: #### K #### [facility] [address] [address] [address] Macy Crow 04-21-2022 CNPN Telephone (HEMASA) NICOLETTE FERNANDEZ ([id number]) 1985 F Date Time Provider Department 04/21/22 MIN LEWIS During your visit today, we recorded the following information about you: Rivka Patricia MA 04/21/2022 2:05 PM Signed Patient has an appt on 05/01/22. Would you like labs, if so place orders. ESTHER Vargas APRN.WEALTH MANAGEMENT DIRECTOR 04/24/2022 11:[address] Lewis, Not sure what labs you want ordered. Please advise. Thanks, Lisa Arrieta APRN.WEALTH MANAGEMENT DIRECTOR Allergies As of Date: 04/21/2022 Noted Allergy Reaction MORPHINE 07/09/2014 11 - Vomiting Comments: Severe Urinary retention, severe vomiting VANCOMYCIN 12/28/2021 2 - Rash Date Reviewed: 12/28/2021 Reviewed by: Rivka Patricia MA - Fully Assessed Reason for Visit: Lab Orders [[id number]] Prescriptions as of 05/02/2022 - desmopressin (DDAVP) [...] Status:Closed by RIVKA PATRICIA on 05/02/22 Normal [facility] CBC AUTO DIFFon 04-18-2022 BASO # 0.1 103/ul Normal 0.0-0.1 [facility] Comment on above: Performed By: #### C BC #### [facility] [address] [place], [place] [address] Dr. Macy Vázquez Basophils/100 WBC (Bld) 0.6 % Normal 0.2-2.0 [facility] Comment on above: Performed By: #### C BC #### [facility] [address] [place] [address] Dr. Macy Vázquez EO # 0.1 103/ul Normal 0.0-0.7 [facility] Comment on above: Performed By: #### C BC #### [facility] [address] [place] [address] Dr. Macy áVzquez Eosinophils/100 WBC (Bld) 1.3 % Normal 0.9-7.0 [facility] Comment on above: Performed By: #### C BC #### [facility] [address] [place] [address] Dr. Macy Vázquez Erythrocyte distribution width (RBC) [Ratio] 11.9 % Normal 11.0-15.0 [facility] Comment on above: Performed By: #### C BC #### [facility] [address] [place] [address] Dr. Macy Vázquez Hematocrit (Bld) [Volume fraction] 41.3 % Normal 36.0-48.0 [facility] Comment on above: Performed By: #### C BC #### [facility] [address] [place] [address] Dr. Macy Vázquez Hemoglobin (Bld) [Mass/Vol] 14.5 g/dL Normal 12.0-16.0 [facility] Comment on above: Performed By: #### C BC #### [facility] [address] [place] [address] Dr. Macy Vázquez IG # 0.04 10e3/ul Critically high 0.00-0.03 [facility] Comment on above: Performed By: #### C BC #### [facility] [address] [place] [address] Dr. Macy Vázquez IG % 0.4 % Normal 0.0-0.5 [facility] Comment on above: Performed By: #### C BC #### [facility] [address] [place] [address] Dr. Macy Vázquez LYMPH # 3.5 103/ul Normal 1.2-3.8 [facility] Comment on above: Performed By: #### C BC #### [facility] [address] [place] [address] Dr. Macy Vázquez Lymphocytes/100 WBC (Bld) 33.7 % Normal 20.5-60.0 [facility] Comment on above: Performed By: #### C BC #### [facility] [address] [place] [address] Dr. Macy Vázquez MANUAL DIFF REQ NO Normal [facility] Comment on above: Performed By: #### C BC #### [facility] [address] [place] [address] Dr. Macy Vázquez MCH (RBC) [Entitic mass] 32.2 pg Normal 26.7-34.0 [facility] Comment on above: Performed By: #### C BC #### [facility] [address] [place] [address] Dr. Macy Vázquez MCHC (RBC) [Mass/Vol] 35.1 g/dL Normal 29.9-35.2 [facility] Comment on above: Performed By: #### C BC #### [facility] [address] [place] [address] Dr. Macy Vázquez MCV (RBC) [Entitic vol] 91.8 fL Normal 81.0-99.0 [facility] Comment on above: Performed By: #### C BC #### [facility] [address] [place] [address] Dr. Macy Vázquez MONO # 1.0 103/ul Critically high 0.3-0.8 [facility] Comment on above: Performed By: #### C BC #### [facility] [address] [place] [address] Dr. Macy Vázquez Monocytes/100 WBC (Bld) 9.3 % Normal 1.7-12.0 [facility] Comment on above: Performed By: #### C BC #### [facility] [address] [place] [address] Dr. Macy Vázquez NEUT # 5.7 103/ul Normal 1.4-6.5 [facility] Comment on above: Performed By: #### C BC #### [facility] [address] [place] [address] Dr. Macy Vázquez Neutrophils/100 WBC (Bld) 54.7 % Normal 43.0-75.0 [facility] Comment on above: Performed By: #### C BC #### [facility] [address] [place] [address] Dr. Macy Vázquez Platelet mean volume (Bld) [Entitic vol] 10.1 fL Normal 9.5-13.5 [facility] Comment on above: Performed By: #### C BC #### [facility] [address] [place] [address] Dr. Macy Vázquez PLT 257 103/ul Normal 150-450 [facility] Comment on above: Performed By: #### C BC #### [facility] [address] [place] [address] Dr. Macy Vázquez RBC 4.50 106/ul Normal 4.20-5.40 [facility] Comment on above: Performed By: #### C BC #### [facility] [address] [place] [address] Dr. Macy Vázquez WBC 10.4 103/ul Normal 4.0-11.0 [facility] Comment on above: Performed By: #### C BC #### [facility] [address] [place] [address] Dr. Macy Vázquez LIPID PROFILEon 04-18-2022 CHOL-HDL RATIO NORM SEE BELOW Normal [facility] Comment on above: Result Comment: 3.3 - 4.4 LOW RISK 4.4 - 7.1 AVERAGE RISK 7.1 - 11.0 MODERATE RISK >11.0 HIGH RISK Performed By: #### C MP, TSH, LIPID #### [facility] [address] [place] [address] Dr. Macy Vázquez Cholesterol [Mass/Vol] 195 mg/dL Normal <=200 [facility] Comment on above: Performed By: #### C MP, TSH, LIPID #### [facility] [address] [place] [address] Dr. Macy Vázquez Cholesterol in HDL [Mass/Vol] 32 mg/dL Critically low 40-60 [facility] Comment on above: Performed By: #### C MP, TSH, LIPID #### [facility] [address] [address] [address] Macy Vázquez Cholesterol in LDL [Mass/Vol] 117.4 mg/dL Normal [facility] Comment on above: Performed By: #### C MP, TSH, LIPID #### [facility] [address] [address] [address] Macy Vázquez Cholesterol.total/Ch olesterol in HDL [Mass ratio] 6.1 {ratio} Normal [facility] Comment on above: Performed By: #### C MP, TSH, LIPID #### [facility] [address] [address] [address] Macy Vázquez HDL NORMAL > or = 60 mg/dl - LO W CARDIOVASCULAR RISK <40 mg/dl - HIGH CARDIOVASCULAR RISK Normal [facility] Comment on above: Performed By: #### C MP, TSH, LIPID #### [facility] [address] [address] [address] Macy Vázquez LDL CALC NORMAL SEE BELOW Normal [facility] Comment on above: Result Comment: <100 mg/dl OPTIMAL 100 - 129 mg/dl NEAR OR ABOVE OPTIMAL 130 - 159 mg/dl BORDERLINE HIGH 160 - 189 mg/dl HIGH >190 mg/dl VERY HIGH Performed By: #### C MP, TSH, LIPID #### [facility] [address] [address] [address] Macy Vázquez Triglyceride [Mass/Vol] 228 mg/dL Critically high <=150 [facility] Comment on above: Performed By: #### C MP, TSH, LIPID #### [facility] [address] [address] [address] Macy Vázquez VLDL CALC 45.6 mg/dL Normal [facility] Comment on above: Performed By: #### C MP, TSH, LIPID #### [facility] [address] [place] [address] Dr. Macy Vázquez PROF 14(COMP METB)on 023 Albumin [Mass/Vol] 3.9 g/dL Normal 3.4-5.0 [facility] Comment on above: Performed By: #### C MP, TSH, LIPID #### [facility] [address] [address] [address] Macy Vázquez Albumin/Globulin [Mass ratio] 1.4 {ratio} Normal [facility] Comment on above: Performed By: #### C MP, TSH, LIPID #### [facility] [address] [address] [address] Macy Vázquez ALP [Catalytic activity/Vol] 67 U/L Normal 46-116 [facility] Comment on above: Performed By: #### C MP, TSH, LIPID #### [facility] [address] [address] [address] Macy Vázquez ALT [Catalytic activity/Vol] 24 U/L Normal 14-59 [facility] Comment on above: Performed By: #### C MP, TSH, LIPID #### [facility] [address] [address] [address] Macy Vázquez Anion gap [Moles/Vol] 9.0 mmol/L Normal [facility] Comment on above: Performed By: #### C MP, TSH, LIPID #### [facility] [address] [address] [address] Macy Vázquez AST [Catalytic activity/Vol] 17 U/L Normal 15-37 [facility] Comment on above: Performed By: #### C MP, TSH, LIPID #### [facility] [address] [address] [address] Macy Vázquez Bilirubin [Mass/Vol] 0.2 mg/dL Normal 0.2-1.0 [facility] Comment on above: Performed By: #### C MP, TSH, LIPID #### [facility] [address] [address] [address] Macy Vázquez Calcium [Mass/Vol] 8.8 mg/dL Normal 8.5-10.1 [facility] Comment on above: Performed By: #### C MP, TSH, LIPID #### [facility] [address] [address] [address] Macy Vázquez Chloride [Moles/Vol] 102 mmol/L Normal 98-107 [facility] Comment on above: Performed By: #### C MP, TSH, LIPID #### [facility] [address] [address] [address] Macy Vázquez CO2 [Moles/Vol] 31.3 mmol/L Normal 21.0-32.0 [facility] Comment on above: Performed By: #### C MP, TSH, LIPID #### [facility] [address] [address] [address] Macy Vázquez Creatinine [Mass/Vol] 0.65 mg/dL Normal 0.55-1.02 [facility] Comment on above: Performed By: #### C MP, TSH, LIPID #### [facility] [address] [address] [address] Macy Vázquez EGFR-AF [place]LANDER >60 Normal >=60 [facility] Comment on above: Performed By: #### C MP, TSH, LIPID #### [facility] [address] [address] [address] Macy Vázquez EGFR-NON AF [place]ER >60 Normal >=60 [facility] Comment on above: Performed By: #### C MP, TSH, LIPID #### [facility] [address] [address] [address] Macy Vázquez Globulin (S) [Mass/Vol] 2.8 g/dL Normal [facility] Comment on above: Performed By: #### C MP, TSH, LIPID #### [facility] [address] [address] [address] Macy Vázquez Glucose [Mass/Vol] 114 mg/dL Critically high 74-106 [facility] Comment on above: Performed By: #### C MP, TSH, LIPID #### [facility] [address] [address] [address] Macy Vázquez Potassium [Moles/Vol] 3.3 mmol/L Critically low 3.5-5.1 [facility] Comment on above: Performed By: #### C MP, TSH, LIPID #### [facility] [address] [address] [address] Macy Vázquez Protein [Mass/Vol] 6.7 g/dL Normal 6.4-8.2 [facility] Comment on above: Performed By: #### C MP, TSH, LIPID #### [facility] [address] [place] [address] Dr. Macy Vázquez Sodium [Moles/Vol] 139 mmol/L Normal 136-145 [facility] Comment on above: Performed By: #### C MP, TSH, LIPID #### [facility] [address] [place] [address] Dr. Macy Vázquez Urea nitrogen [Mass/Vol] 6.0 mg/dL Critically low 7.0-18.0 [facility] Comment on above: Performed By: #### C MP, TSH, LIPID #### [facility] [address] [place] [address] Dr. Macy Vázquez Urea nitrogen/Creatinine [Mass ratio] 9.2 mg/mg Normal [facility] Comment on above: Performed By: #### C MP, TSH, LIPID #### [facility] [address] [place] [address] Dr. Macy Vázquez TSHon 04-18-2022 TSH 2.590 uIU/mL Normal 0.358-3.740 [facility] Comment on above: Performed By: #### C MP, TSH, LIPID #### [facility] [address] [place] [address] Dr. Macy Vázquez VITAMIN D 25 OHon 04-18-2022 VIT D 25-OH 39.7 ng/mL Normal [facility] Comment on above: Performed By: #### V ITAD #### [facility] [address] [place] [address] Dr. Macy Vázquez VIT D RANGES SEE BELOW Normal [facility] Comment on above: Result Comment: <20 ng/mL Vit D deficient 20 - <30 ng/mL Vit D insufficient 30 - 100 ng/mL Vit D sufficient >100 ng/mL Potential Toxicity Performed By: #### V ITAD #### [facility] [address] [place] [address] Dr. Macy Vázquez MG MAMM SCREEN 3D NICK CADon 03-21-2022 MG MAMM SCREEN 3D NICK CAD Patient: NICOLETTE FERNANDEZ Exam Date: 03/21/2022 : 1985 Gender:F Ordering : DR LAURA STILL M.D. Admission #: [id number] Family : Order #: [id number] CLICK HERE TO VIEW EXAM RADIOLOGY REPORT [...] cervical cancer at age 24. LOCATION: [facility] BREAST COMPOSITION: Extremely dense, which lowers the [...] PALPABLE LUMP SHOULD BE BIOPSIED. Dictated by: Casie Alfaro M.D. on 03/22/2022 at 11:22 Approved by: Casie Alfaro M.D. on 03/22/2022 at 11:[address] [facility] 02-07-2022 [facility] Telephone ([facility]) NICOLETTE FERNANDEZ ([id number]) 1985 F Date Time Provider Department 02/07/22 JACQUE MEDELLIN [facility] During your visit today, we recorded the following information about you: Jacque Medellin anne marie 02/07/2022 3:24 PM Signed 2 issues: Stimate is not covered as well as not available to order from surveyor instrument assistant. However, DDAVP 10 mcg/0.1 mL [place] (qty. 5 mL) is covered and available for order. Amicar - I have submitted a prior authorization on cover my meds and still waiting for a determination. Jacque Medellin [facility] Prior Authorization Note Provider Intervention Required?: No- Pharmacy completed on your behalf. Drug: Aminocaproic Acid 500MG Cover My Meds Gomez: [id number] Determination: Approved Prior Authorization/Case #: [id number] Prior Authorization Expiration: Time to PA Submission in CMM: 15 min Time to PA Determination in CMM: Same day Additional Information: 72 hour turn around For questions relating to this submission, please contact [facility] at [phone] Min Lewis MD 02/07/2022 2:59 PM Signed ? Jacque Medellin [facility] 02/07/2022 3:28 PM Signed I got the aminocaproic acid covered by patient's insurance. The Stimate is NOT available to order and is NOT covered by patient's insurance. We can order DDAVP 10 mcg/0.1 mL [place] (qty. 5 mL) and that IS covered by patient's insurance. Would you like to switch to this? Thanks, Jacque Medellin [facility] Min Lewis MD 02/07/2022 5:17 PM Signed Great - Hans Santillan! Yes lets do the DDAVP - but I had wanted the high dose.... Brandee Jerez [facility] 02/13/2022 2:28 PM Signed Called [facility] - our minister of religion who advised the high dose DDAVP (Stimate) 150mcg is currently on backorder. I researched further and found that due a concentration variability, the surveyor instrument assistant stopped producing Stimate in 2019 and they are estimating availability the half 2022. At this point, we will have to proceed with the lower dose. Thanks, Brandee Jerez [facility] Allergies As of Date: 02/07/2022 [...] 150 mcg/spray (0.1 mL) spry Use 1 [place] in the nose every 12 hours as [...] Of Date: 02/07/2022 (None) Encounter Status:Closed by JACQUE MEDELLIN on 03/06/22 Normal [facility] CBC W Auto Differential pane l (Bld)on 01-11-2022 Basophils (Bld) [#/Vol] 0.06 10*3/uL Normal <0.11 [facility] Comment on above: Order Comment: Speci men Type: BLOOD SPECIMEN Ordering Facility: [facility] Address: [address] [address] Performed By: #### 5 7021-8 #### [facility] [place] [id number] [address] [place] [address] [place] Basophils/100 WBC (Bld) 0.6 % Normal [facility] Comment on above: Order Comment: Speci men Type: BLOOD SPECIMEN Ordering Facility: [facility] Address: [address] [address] Performed By: #### 5 7021-8 #### [facility] IA [id number] [address] [place] [address] [place] Differential cell count method Nom (Bld) Auto Normal [facility] Comment on above: Order Comment: Speci men Type: BLOOD SPECIMEN Ordering Facility: [facility] Address: [address] [address] Performed By: #### 5 7021-8 #### [facility] IA [id number] [address] [place] [address] [place] Eosinophils (Bld) [#/Vol] 0.10 10*3/uL Normal <0.46 [facility] Comment on above: Order Comment: Speci men Type: BLOOD SPECIMEN Ordering Facility: [facility] Address: [address] [address] Performed By: #### 5 7021-8 #### [facility] IA [id number] [address] [place] [address] [place] Eosinophils/100 WBC (Bld) 0.9 % Normal [facility] Comment on above: Order Comment: Speci men Type: BLOOD SPECIMEN Ordering Facility: [facility] Address: [address] [address] Performed By: #### 5 7021-8 #### [facility] CLIA [id number] [address] [place] [address] [place] Erythrocyte distribution width (RBC) [Ratio] 11.7 % Normal 11.5-15.0 [facility] Comment on above: Order Comment: Speci men Type: BLOOD SPECIMEN Ordering Facility: [facility] Address: [address] [address] Performed By: #### 5 7021-8 #### [facility] CLIA [id number] [place] Hematocrit (Bld) [Volume fraction] 41.0 % Normal 36.0-46.0 [facility] Comment on above: Order Comment: Speci men Type: BLOOD SPECIMEN Ordering Facility: [facility] Address: [address] [address] Performed By: #### 5 7021-8 #### [facility] IA [id number] [address] [place] [address] [place] Hemoglobin (Bld) [Mass/Vol] 14.2 g/dL Normal 11.5-15.5 [facility] Comment on above: Order Comment: Speci men Type: BLOOD SPECIMEN Ordering Facility: [facility] Address: [address] [address] Performed By: #### 5 7021-8 #### [facility] IA [id number] [address] [place] [address] [place] Immature granulocytes (Bld) [#/Vol] 0.03 10*3/uL Normal <0.10 [facility] Comment on above: Order Comment: Speci men Type: BLOOD SPECIMEN Ordering Facility: [facility] Address: [address] [address] Performed By: #### 5 7021-8 #### [facility] CLIA [id number] [address] [place] Immature granulocytes/100 WBC (Bld) 0.3 % Normal [facility] Comment on above: Order Comment: Speci men Type: BLOOD SPECIMEN Ordering Facility: [facility] Address: [address] [address] Performed By: #### 5 7021-8 #### [facility] CLIA [id number] [address] [place] [address] [place] Lymphocytes (Bld) [#/Vol] 4.12 10*3/uL High 1.00-4.00 [facility] Comment on above: Order Comment: Speci men Type: BLOOD SPECIMEN Ordering Facility: [facility] Address: [address] [address] Performed By: #### 5 7021-8 #### [facility] CLIA [id number] [place] [address] [place] Lymphocytes/100 WBC (Bld) 38.7 % Normal [facility] Comment on above: Order Comment: Speci men Type: BLOOD SPECIMEN Ordering Facility: [facility] Address: [address] [address] Performed By: #### 5 7021-8 #### [facility] CLIA [id number] [address] [place] [address] [place] MCH (RBC) [Entitic mass] 32.6 pg Normal 26.0-34.0 [facility] Comment on above: Order Comment: Speci men Type: BLOOD SPECIMEN Ordering Facility: [facility] Address: [address] [address] Performed By: #### 5 7021-8 #### [facility] CLIA [id number] [address] [place] [address] [place] MCHC (RBC) [Mass/Vol] 34.6 g/dL Normal 30.5-36.0 [facility] Comment on above: Order Comment: Speci men Type: BLOOD SPECIMEN Ordering Facility: [facility] Address: [address] [address] Performed By: #### 5 7021-8 #### [facility] CLIA [id number] [address] [place] [address] [place] MCV (RBC) [Entitic vol] 94.0 fL Normal 80.0-100.0 [facility] Comment on above: Order Comment: Speci men Type: BLOOD SPECIMEN Ordering Facility: [facility] Address: [address] [address] Performed By: #### 5 7021-8 #### [facility] CLIA [id number] [address] [place] [address] [place] Monocytes (Bld) [#/Vol] 0.98 10*3/uL High <0.87 [facility] Comment on above: Order Comment: Speci men Type: BLOOD SPECIMEN Ordering Facility: [facility] Address: [address] [address] Performed By: #### 5 7021-8 #### [facility] CLIA [id number] [address] [address] [id number] [place] Monocytes/100 WBC (Bld) 9.2 % Normal [facility] Comment on above: Order Comment: Speci men Type: BLOOD SPECIMEN Ordering Facility: [facility] Address: [address] [address] Performed By: #### 5 7021-8 #### [facility] IA [id number] [address] [place] [address] [place] Neutrophils (Bld) [#/Vol] 5.36 10*3/uL Normal 1.45-7.50 [facility] Comment on above: Order Comment: Speci men Type: BLOOD SPECIMEN Ordering Facility: [facility] Address: [address] [address] Performed By: #### 5 7021-8 #### [facility] IA [id number] [address] [address] [id number] [place] Neutrophils/100 WBC (Bld) 50.3 % Normal [facility] Comment on above: Order Comment: Speci men Type: BLOOD SPECIMEN Ordering Facility: [facility] Address: [address] [address] Performed By: #### 5 7021-8 #### [facility] IA [id number] [address] [place] [address] [place] Nucleated RBC (Bld) [#/Vol] 10*3/uL Normal <0.01 [facility] Comment on above: Order Comment: Speci men Type: BLOOD SPECIMEN Ordering Facility: [facility] Address: [address] [address] Performed By: #### 5 7021-8 #### [facility] IA [id number] [address] [place] [address] [place] Nucleated RBC/100 WBC (Bld) [Ratio] 0.0 /[address] [facility] Comment on above: Order Comment: Speci men Type: BLOOD SPECIMEN Ordering Facility: [facility] Address: [address] Performed By: #### 5 7021-8 #### [facility] IA [id number] [address] [place] [address] [place] Platelet mean volume (Bld) [Entitic vol] 10.8 fL Normal 9.0-12.7 [facility] Comment on above: Order Comment: Speci men Type: BLOOD SPECIMEN Ordering Facility: [facility] Address: [address] [address] Performed By: #### 5 7021-8 #### [facility] IA [id number] [address] [place] [address] [place] Platelets (Bld) [#/Vol] 261 10*3/uL Normal 150-400 [facility] Comment on above: Order Comment: Speci men Type: BLOOD SPECIMEN Ordering Facility: [facility] Address: [address] Performed By: #### 5 7021-8 #### [facility] IA [id number] [address] [place] [address] [place] RBC (Bld) [#/Vol] 4.36 10*6/uL Normal 3.90-5.20 [facility] Comment on above: Order Comment: Speci men Type: BLOOD SPECIMEN Ordering Facility: [facility] Address: [address] Performed By: #### 5 7021-8 #### [facility] IA [id number] [address] [place] [address] [place] [facility] [place] WBC (Bld) [#/Vol] 10.65 10*3/uL Normal 3.70-11.00 [facility] Comment on above: Order Comment: Speci men Type: BLOOD SPECIMEN Ordering Facility: [facility] Address: [address] [address] Performed By: #### 5 7021-8 #### [facility] CLIA [id number] [address] [place], [place] [address] [place] [address] OF [facility] Comprehensive metabolic 2000 panelon 01-11-2022 Albumin [Mass/Vol] 4.5 g/dL Normal 3.9-4.9 [facility] Comment on above: Order Comment: Speci men Type: BLOOD SPECIMEN Ordering Facility: [facility] Address: [address] [address] Performed By: #### 2 4323-8 #### [facility] CLIA [id number] [address] [place] ALP [Catalytic activity/Vol] 59 U/L Normal 34-123 [facility] Comment on above: Order Comment: Speci men Type: BLOOD SPECIMEN Ordering Facility: [facility] Address: [address] [address] Performed By: #### 2 4323-8 #### [facility] CLIA [id number] [address] [place], [place] [address] [place] [address] [facility] ALT [Catalytic activity/Vol] 19 U/L Normal 7-38 [facility] Comment on above: Order Comment: Speci men Type: BLOOD SPECIMEN Ordering Facility: [facility] Address: [address] [address] Performed By: #### 2 4323-8 #### [facility] CLIA [id number] [address] Anion gap [Moles/Vol] 13 mmol/L Normal 9-18 [facility] Comment on above: Order Comment: Speci men Type: BLOOD SPECIMEN Ordering Facility: [facility] Address: [address] [address] Performed By: #### 2 4323-8 #### [facility] IA [id number] [address] [place] [address] [place] AST [Catalytic activity/Vol] 19 U/L Normal 13-35 [facility] Comment on above: Order Comment: Speci men Type: BLOOD SPECIMEN Ordering Facility: [facility] Address: [address] [address] Performed By: #### 2 4323-8 #### [facility] IA [id number] [address] [place] [address] [place] Bilirubin [Mass/Vol] mg/dL Low 0.2-1.3 [facility] Comment on above: Order Comment: Speci men Type: BLOOD SPECIMEN Ordering Facility: [facility] Address: [address] [address] Performed By: #### 2 4323-8 #### [facility] IA [id number] [address] [place] [address] [place] Calcium [Mass/Vol] 9.7 mg/dL Normal 8.5-10.2 [facility] Comment on above: Order Comment: Speci men Type: BLOOD SPECIMEN Ordering Facility: [facility] Address: [address] [place] [address] Performed By: #### 2 4323-8 #### [facility] IA [id number] [address] [place] [address] [place] Chloride [Moles/Vol] 102 mmol/L Normal 97-105 [facility] Comment on above: Order Comment: Speci men Type: BLOOD SPECIMEN Ordering Facility: [facility] Address: [address] [address] Performed By: #### 2 4323-8 #### [facility] [id number] [address] [place] [address] [place] CO2 [Moles/Vol] 26 mmol/L Normal 22-30 [facility] Comment on above: Order Comment: Speci men Type: BLOOD SPECIMEN Ordering Facility: [facility] Address: [address] [id number] Performed By: #### 2 4323-8 #### [facility] CLIA [id number] [address] [place] [address] [place] Creatinine [Mass/Vol] 0.74 mg/dL Normal 0.58-0.96 [facility] Comment on above: Order Comment: Javier men Type: BLOOD SPECIMEN Ordering Facility: [facility] Address: [address] [address] Performed By: #### 2 4323-8 #### [facility] CLIA [id number] [address] [place], [place] [address] [place] [address] OF [facility] ESTIMATED GLOMERULAR FILTRATION RATE 107 mL/min/1.73m??? Normal >=60 [facility] Comment on above: Order Comment: Bebai natalya Type: BLOOD SPECIMEN Ordering Facility: [facility] Address: [address] [address] Result Comment: Stephani mated Glomerular Filtration Rate [...] GFR. Performed By: #### 2 4323-8 #### [facility] CLIA [id number] [address] [place] [address] [place] Glucose [Mass/Vol] 91 mg/dL Normal 74-99 [facility] Comment on above: Order Comment: Speci men Type: BLOOD SPECIMEN Ordering Facility: [facility] Address: [address] [address] Result Comment: The Stateless Diabetes Association (ADA) provides guidance for cutoff [...] Standards of Medical Care in Diabetes 2016, Stateless Diabetes Association. Diabetes Care. 2016.39(Suppl 1). Performed By: #### 2 4323-8 #### [facility] IA [id number] [address] [place] [address] [place] Potassium [Moles/Vol] 3.6 mmol/L Low 3.7-5.1 [facility] Comment on above: Order Comment: Speci men Type: BLOOD SPECIMEN Ordering Facility: [facility] Address: [address] [address] Performed By: #### 2 4323-8 #### [facility] IA [id number] [address] [place] [address] [place] Protein [Mass/Vol] 6.5 g/dL Normal 6.3-8.0 [facility] Comment on above: Order Comment: Speci men Type: BLOOD SPECIMEN Ordering Facility: [facility] Address: [address] [address] Performed By: #### 2 4323-8 #### [facility] IA [id number] [address] [place] [address] [place] Sodium [Moles/Vol] 141 mmol/L Normal 136-144 [facility] Comment on above: Order Comment: Speci men Type: BLOOD SPECIMEN Ordering Facility: [facility] Address: [address] [address] Performed By: #### 2 4323-8 #### [facility] IA [id number] [address] [place] [address] [place] Urea nitrogen [Mass/Vol] 13 mg/dL Normal 7-21 [facility] Comment on above: Order Comment: Speci men Type: BLOOD SPECIMEN Ordering Facility: [facility] Address: [address] [address] Performed By: #### 2 4323-8 #### [facility] CLIA [id number] [address] [facility] [address] [facility] PLATELET AGGREGATIONon 01-11 Platelet aggregation ADP induced 20 umol/mL (PRP) [Rel units/Vol] 81 % Max Normal 71-94 [facility] Comment on above: Order Comment: Speci men Type: BLOOD SPECIMEN Ordering Facility: [facility] Address: [address] [place], [place] [id number] Performed By: #### L [id number] #### [facility] CLIA [id number] [address] [place] [address] Platelet aggregation ADP induced ATP secretion 10 umol/L (Bld) [Rel units/Vol] 0.7 nM Normal 0.1-1.4 [facility] Comment on above: Order Comment: Speci men Type: BLOOD SPECIMEN Ordering Facility: [facility] Address: [address] [place], [place] [id number] Performed By: #### L [id number] #### [facility] CLIA [id number] [address] [place] [address] Platelet aggregation ADP induced ATP secretion 5 umol/L (Bld) [Rel units/Vol] 0.4 nM Normal 0.1-1.3 [facility] Comment on above: Order Comment: Speci men Type: BLOOD SPECIMEN Ordering Facility: [facility] Address: [address] [place], [place] [id number] Performed By: #### L [id number] #### [facility] CLIA [id number] [address] Platelet aggregation ADP induced High dose (PRP) [Rel units/Vol] 65 % Max Normal 65-93 [facility] Comment on above: Order Comment: Speci men Type: BLOOD SPECIMEN Ordering Facility: [facility] Address: [address] [place], [place] [id number] Performed By: #### L [id number] #### [facility] CLIA [id number] [address] [place] [address] Platelet aggregation arachidonate induced 500 ug/mL (PRP) [Rel units/Vol] 75 % Max Normal 75-100 [facility] Comment on above: Order Comment: Speci men Type: BLOOD SPECIMEN Ordering Facility: [facility] Address: [address] [place] [address] Performed By: #### L [id number] #### [facility] CLIA [id number] [address] [place] [address] Platelet aggregation arachidonate induced ATP secretion 500 umol/L (Bld) [Rel units/Vol] 1.5 nM Normal 0.4-2.0 [facility] Comment on above: Order Comment: Speci men Type: BLOOD SPECIMEN Ordering Facility: [facility] Address: [address] [place] [address] Performed By: #### L [id number] #### [facility] CLIA [id number] [address] [place] [address] Platelet aggregation collagen induced ATP secretion 1 ug/mL (Bld) [Rel units/Vol] 1.1 nM Normal 0.4-1.7 [facility] Comment on above: Order Comment: Speci men Type: BLOOD SPECIMEN Ordering Facility: [facility] Address: [address] [place], [place] [id number] Performed By: #### L [id number] #### [facility] CLIA [id number] [address] [place] [address] Platelet aggregation collagen induced Qn (Bld) 82 % Max Normal 74-99 [facility] Comment on above: Order Comment: Speci men Type: BLOOD SPECIMEN Ordering Facility: [facility] Address: [address] [place], [place] [id number] Performed By: #### L [id number] #### [facility] CLIA [id number] [address] [place] [address] Platelet aggregation EPINEPHrine induced (PRP) [Rel units/Vol] 11 % Max Low 70-97 [facility] Comment on above: Order Comment: Speci men Type: BLOOD SPECIMEN Ordering Facility: [facility] Address: [address] [place], [place] [id number] Performed By: #### L [id number] #### [facility] CLIA [id number] [address] Platelet aggregation EPINEPHrine induced 100 umol/L (PRP) [Rel units/Vol] 9 % Max Low 70-99 [facility] Comment on above: Order Comment: Speci men Type: BLOOD SPECIMEN Ordering Facility: [facility] Address: [address] [place], [place] [id number] Performed By: #### L [id number] #### [facility] CLIA [id number] [address] [place] [address] Platelet aggregation ristocetin induced 1200 ug/mL (PRP) [Rel units/Vol] 99 % Max Normal 76-100 [facility] Comment on above: Order Comment: Speci men Type: BLOOD SPECIMEN Ordering Facility: [facility] Address: [address] [place], [place] [id number] Performed By: #### L [id number] #### [facility] CLIA [id number] [address] [place] [address] [place] Platelet aggregation ristocetin induced 1500 ug/mL (PRP) [Rel units/Vol] 95 % Max Normal 76-100 [facility] Comment on above: Order Comment: Speci men Type: BLOOD SPECIMEN Ordering Facility: [facility] Address: [address] [place], [place] [id number] Performed By: #### L [id number] #### [facility] CLIA [id number] [address] [place] [address] [place] Platelet aggregation ristocetin induced 600 ug/mL (PRP) [Rel units/Vol] 20 % Max High 0-9 [facility] Comment on above: Order Comment: Speci men Type: BLOOD SPECIMEN Ordering Facility: [facility] Address: [address] [address] Performed By: #### L [id number] #### [facility] CLIA [id number] [address] [place] [address] Platelet aggregation ristocetin induced 900 ug/mL (PRP) [Rel units/Vol] 100 % Max Normal 50-100 [facility] Comment on above: Order Comment: Speci men Type: BLOOD SPECIMEN Ordering Facility: [facility] Address: [address] [place] [address] Performed By: #### L [id number] #### [facility] [place] [id number] [address] [place] [address] OF [place] Platelet aggregation thrombin induced ATP secretion 1 U/mL (Bld) [Rel units/Vol] 0.0 nM Low 0.2-1.6 [facility] Comment on above: Order Comment: Bebai men Type: BLOOD SPECIMEN Ordering Facility: [facility] Address: [address] [place] [address] Performed By: #### L [id number] #### [facility] [place] [id number] [address] [place] [address] OF [place] Platelet aggregation thrombin induced ATP secretion 5 U/mL (Bld) [Rel units/Vol] 0.0 nM Low 0.2-1.7 [facility] Comment on above: Order Comment: Bebai men Type: BLOOD SPECIMEN Ordering Facility: [facility] Address: [address] [place], [place] [id number] Performed By: #### L [id number] #### [facility] [place] [id number] [address] [place] [address] OF [place] PLATELET FUNCTION VAon 01-11 Platelet function (closure time) collagen+ADP induced (Bld) [Time] 87 CT (seconds) Normal <118 [facility] Comment on above: Order Comment: Speci men Type: BLOOD SPECIMEN Ordering Facility: [facility] Address: [address] [place] [address] Performed By: #### P LTSCN #### [facility] CLIA [id number] [address] Platelet function (closure time) collagen+EPINEPHrine induced (Bld) [Time] 144 CT (seconds) Normal <194 [facility] Comment on above: Order Comment: Javier hoang Type: BLOOD SPECIMEN Ordering Facility: [facility] Address: [address] [place] [address] Performed By: #### P LTSCN #### [facility] CLIA [id number] [address] [place] PT panel Coag (PPP)on 2021 INR Coag (PPP) [Relative time] 1.0 {INR} Normal 0.9-1.3 [facility] Comment on above: Order Comment: Javier hoang Type: BLOOD SPECIMEN Ordering Facility: [facility] Address: [address] [place] [address] Result Comment: Le min K Antagonist (VKA) Therapeutic Range: INR 2 to 3 (Target INR of 2.5) Note: For patients treated with VKA drugs, such as warfarin, the [employer] 2012 Guideline recommends [...] GH, et al. Chest 2012, 141:7S-47S Ira RA et al. [facility] 2017, 70: 252-289 Performed By: #### 3 4528-0, 24479-3 #### [facility] CLIA [id number] [address] OF [place] PT Coag (PPP) [Time] 10.0 s Normal 9.7-13.0 [facility] Comment on above: Order Comment: Javier hoang Type: BLOOD SPECIMEN Ordering Facility: [facility] Address: [address] [place] [address] Performed By: #### 3 4528-0, 47020-2 #### [facility] CLIA [id number] [facility]. [address] OF [place] VON WILLEBRAND PNL (VWFPN)on 01-11-2022 Bound rFVIII/vWf Ag IA (P) [Relative ratio] 1.2 Normal >=0.5 [facility] Comment on above: Order Comment: Javier hoang Type: BLOOD SPECIMEN Ordering Facility: [facility] Address: [address] [place] [address] Performed By: #### L [id number] #### [facility] CLIA [id number] [address] [place] [address] Coagulation factor VIII activity actual/normal Coag (PPP) [Relative time] 67 % Normal 50-173 [facility] Comment on above: Order Comment: Javier hoang Type: BLOOD SPECIMEN Ordering Facility: [facility] Address: [address] [place] [address] Performed By: #### L [id number] #### [facility] CLIA [id number] [address] OF [place] Platelet aggregation ristocetin induced Ql (PRP) Normal [facility] Comment on above: Order Comment: Javier hoang Type: BLOOD SPECIMEN Ordering Facility: [facility] Address: [address] [place] [address] Result Comment: Incr eased dose response at 600 ug/mL ristocetin. Performed By: #### L [id number] #### [facility] CLIA [id number] [address] OF [place] vWf Ag actual/normal IA (PPP) [Relative mass conc] 56 % Normal 50-173 [facility] Comment on above: Order Comment: Speci [facility] Type: BLOOD SPECIMEN Ordering Facility: [facility] Address: [address] [address] Performed By: #### L [id number] #### [facility] CLIA [id number] [address] [place] [address] vWf multimers Ql (PPP) Normal [facility] Comment on above: Order Comment: Javier [facility] Type: BLOOD SPECIMEN Ordering Facility: [facility] Address: [address] [address] Result Comment: Assa y of von Willebrand multimers was performed by an agarose gel electrophoresis followed by immunofixation with anti-von Willebrand factor antiserum. There is a normal multimer distribution with low intensity of bands. Performed By: #### L [id number] #### [facility] CLIA [id number] [address] [place] [address] [place] vWf ristocetin cofactor act/vWf Ag (PPP) [Ratio] 1.0 Normal >=0.5 [facility] Comment on above: Order Comment: [facility] Type: BLOOD SPECIMEN Ordering Facility: [facility] Address: [address] [place] [address] Performed By: #### L [id number] #### [facility] CLIA [id number] [address] [place] [address] vWf ristocetin cofactor Qn (PPP) 55 % Normal 42-146 [facility] Comment on above: Order Comment: [facility] Type: BLOOD SPECIMEN Ordering Facility: [facility] Address: [address] [place] [address] Result Comment: This test was developed and its performance characteristics determined by [facility] [place] (-[facility]). It has not been cleared or approved by the FDA. -[facility] is regulated under CLIA as qualified to perform high-complexity testing. This test is used for clinical purposes. It should not be regarded as investigational or for research. Performed By: #### L [id number] #### [facility] CLIA [id number] [address] OF [place] vWf.collagen binding activity actual/normal IA (PPP) [Relative ratio] 47 % Normal 41-161 [facility] Comment on above: Order Comment: Javier hoang Type: BLOOD SPECIMEN Ordering Facility: [facility] Address: [address] [address] Result Comment: This test was developed and its performance characteristics determined by [facility] [place] ([facility]). It has not been cleared or approved by the FDA. -[facility] is regulated under CLIA as qualified to perform high-complexity testing. This test is used for clinical purposes. It should not be regarded as investigational or for research. Performed By: #### L [id number] #### [facility] CLIA [id number] [address] vWf.collagen binding activity/vWf Ag IA (PPP) [Ratio] 0.8 Normal >=0.6 [facility] Comment on above: Order Comment: Javier hoang Type: BLOOD SPECIMEN Ordering Facility: [facility] Address: [address] [address] Performed By: #### L [id number] #### [facility] CLIA [id number] [address] [place] aPTT PPPon 01-11-2022 aPTT Coag (PPP) [Time] 29.1 s Normal 23.0-32.4 [facility] Comment on above: Order Comment: Javier hoang Type: BLOOD SPECIMEN Ordering Facility: [facility] Address: [address] [address] Performed By: #### 3 4528-0, 70585-4 #### [facility] CLIA [id number] [address] [place] [address] [place] CNPNon 01-09-2022 CNPN Telephone (HEMTSA) NICOLETTE FERNANDEZ ([id number]) 1985 F Date Time Provider Department 01/09/22 SB RODRIGUEZ During your visit today, we recorded the following information about you: Sb Rodriguez RN 01/09/2022 10:27 AM Signed Pt left a to ask what labs are ordered and if she needs to go to [facility] for the Platelet aggregation if ordered. I attempted to call pt back to inform her of labs ordered. She will need to go to [facility] for the Plt aggregation. Updated on phone appt 01/12 with Anthony. Encouraged to call with any additional questions or concerns. Sb Rodriguez RN Allergies As of Date: 01/09/2022 Noted Allergy Reaction MORPHINE 07/09/2014 11 - Vomiting Comments: Severe Urinary retention, severe vomiting VANCOMYCIN 12/28/2021 2 - Rash Date Reviewed: 12/28/2021 Reviewed by: Rivka Patricia MA - Fully Assessed Reason for Visit: Orders [681] Patient Question [0487] Prescriptions as of 01/09/2022 - buPROPion XL [...] Of Date: 01/09/2022 (None) Encounter Status:Closed by SB RODRIGUEZ on 01/09/22 [facility] CNOVSPon 12-29-2021 CNOVSP Visit (SP) Office (HEMASA) FERNANDEZNICOLETTE ([id number]) 1985 F Date Time Provider Department 12/29/21 4:00 PM MIN LEWIS During your visit today, we recorded the following information about you: Temperature Pulse Respiration Blood pressure 97.7 degrees 82/minute 16/minute 113/67 Min Lewis MD 01/08/2022 1:21 PM Signed NAME: Tae Fernandezi CLINIC NO.: [id number] DATE OF SERVICE: December 29, 2021 Referring [...] Consistent with POTS syndrome. Dr. England from [place]. 2011 pacemaker placed following EP study in [facility]. Initial Visit, December 29, 2021: Nicolette Fernandez [...] metoprolol tartrat (more content not included)... Normal [facility] Cardiovascular Lab Reporton 04-08-2021 Cardiovascular Lab Report [facility] Patient Name: [facility] Nicolette MR #: [id number] Department of Physician: Judy England M.D. Medicine Service Date: 04/08/2021 Division of Birthdate: 1985 Cardiology Room #: Adult Cardiovascular Services [place] [address] Cardiovascular Laboratory Report PROCEDURE PERFORMED: Pacemaker pulse [...] Aure/Judy England M.D. Date Trans: 04/08/2021 10:29 Aure/shekhar [id number] cc: Laura Still M.D. [address] [place] [address] Normal [facility] P[facility] SARS COV2 IDon 2 SARS-CoV-2 (COVID-19) RNA LYSSA+probe Ql (Unsp spec) Negative Normal NEGATIVE [facility] Comment on above: Result Comment: ID N [...] Accreditation. Performed By: #### 3 1921 #### [facility] [address] [facility] [place] [address], [facility] *MRSA/MSSA DNA NASALon 03-24 *MRSA/MSSA DNA NASAL Clinical Report: (D ) Specimen: NASAL SWAB Collected: 03/24/2021 17:10 Status: Final Last Updated: 03/25/2021 21:30 MSSA DNA (Final) Negative MRSA DNA (Final) Negative Normal [facility] Comment on above: Performed By: #### 3 1595 #### [facility] [address] [place] [address], [facility] BASIC METABOLIC PANELon 02-27 Calcium [Mass/Vol] 9.5 mg/dL Normal 8.6-10.3 [facility] Comment on above: Performed By: #### 0 0071 #### [facility] [address] [place] [address], [facility] Chloride [Moles/Vol] 104 mmol/L Normal 98-107 [facility] Comment on above: Performed By: #### 0 0071 #### [facility] [address] [place] [address], [place] CO2 [Moles/Vol] 29 mmol/L Normal 21-31 [facility] Comment on above: Performed By: #### 0 0071 #### [facility] [address] [place] [address], [place] Creatinine [Mass/Vol] 0.77 mg/dL Normal 0.60-1.20 [facility] Comment on above: Performed By: #### 0 0071 #### [facility] [address] [place] [address], [place] GFR/1.73 sq M.predicted among blacks MDRD (S/P/Bld) [Vol rate/Area] mL/min/{1.73_m2} Normal >60 [facility] Comment on above: Performed By: #### 0 0071 #### [facility] [address] [place] [address], [place] GFR/1.73 sq M.predicted among non-blacks MDRD (S/P/Bld) [Vol rate/Area] mL/min/{1.73_m2} Normal >60 [facility] Comment on above: Performed By: #### 0 0071 #### [facility] [address] [place] [address], [place] Glucose [Mass/Vol] 85 mg/dL Normal 70-100 [facility] Comment on above: Performed By: #### 0 0071 #### [facility] [address] [place] [address], [place] Potassium [Moles/Vol] 3.9 mmol/L Normal 3.5-5.1 [facility] Comment on above: Performed By: #### 0 0071 #### [facility] [address] [place] [address], [place] Sodium [Moles/Vol] 139 mmol/L Normal 136-145 [facility] Comment on above: Performed By: #### 0 0071 #### [facility] [address] [place] [address], [place] Urea nitrogen [Mass/Vol] 9 mg/dL Normal 7-25 [facility] Comment on above: Performed By: #### 0 0071 #### [facility] [address] CBC W/DIFFon 03-24-2021 ABS IMM GRANS 0.1 10*3/uL Normal 0.0-0.2 The [facility] Comment on above: Performed By: #### 5 0103 #### [facility] [address] [place] [address], [facility] ABS NEUTROPHILS 6.6 10*3/uL Normal 1.6-7.6 [facility] Comment on above: Performed By: #### 5 0103 #### [facility] [address] [place] [address], [facility] Basophils (Bld) [#/Vol] 0.1 10*3/uL Normal 0.0-0.2 [facility] Comment on above: Performed By: #### 5 0103 #### [facility] [address] Basophils/100 WBC (Bld) 0.7 % Normal 0.0-1.0 [facility] Comment on above: Performed By: #### 5 0103 #### [facility] [address] [place] [address], [facility] Eosinophils (Bld) [#/Vol] 0.1 10*3/uL Normal 0.0-0.5 [facility] Comment on above: Performed By: #### 5 0103 #### [facility] [address] [facility] [place] [address], [facility] Eosinophils/100 WBC (Bld) 1.2 % Normal 0.0-6.0 [facility] Comment on above: Performed By: #### 5 0103 #### [facility] [address] Erythrocyte distribution width (RBC) [Ratio] 12.0 % Normal 11.5-15.0 [facility] Comment on above: Performed By: #### 5 0103 #### [facility] [address] [facility] [place] [address], [facility] Hematocrit (Bld) [Volume fraction] 43.0 % Normal 36.0-45.0 [facility] Comment on above: Performed By: #### 5 0103 #### [facility] [address] [address], [facility] Hemoglobin (Bld) [Mass/Vol] 15.1 g/dL High 12.0-15.0 [facility] Comment on above: Performed By: #### 5 0103 #### [facility] [address] [place] [address], [facility] IMMATURE GRANS 0.5 % Normal 0.0-1.0 The [facility] Comment on above: Performed By: #### 5 0103 #### [facility] [address] Lymphocytes (Bld) [#/Vol] 2.7 10*3/uL Normal 1.2-4.0 [facility] Comment on above: Performed By: #### 5 0103 #### [facility] [address] [place] [address], [facility] Lymphocytes/100 WBC (Bld) 25.7 % Normal 20.0-45.0 [facility] Comment on above: Performed By: #### 5 0103 #### [facility] [address] [facility] [place] [address], [facility] MCH (RBC) [Entitic mass] 32.1 pg Normal 27.0-33.0 [facility] Comment on above: Performed By: #### 5 0103 #### [facility] [address] [facility] [place] [address], [facility] MCHC (RBC) [Mass/Vol] 35.1 g/dL High 32.0-35.0 [facility] Comment on above: Performed By: #### 5 0103 #### [facility] [address] [facility] [address], [facility] MCV (RBC) [Entitic vol] 91.5 fL Normal 82.0-98.0 [facility] Comment on above: Performed By: #### 5 0103 #### [facility] [address] [place] [address], [facility] Monocytes (Bld) [#/Vol] 0.9 10*3/uL Normal 0.1-1.0 [facility] Comment on above: Performed By: #### 5 0103 #### [facility] [address] [place] [address], [facility] MONOS 8.5 % Normal 5.0-12.0 [facility] Comment on above: Performed By: #### 5 102 #### [facility] [address] [place] [address], [facility] Neutrophils/100 WBC (Bld) 63.4 % Normal 40.0-72.0 [facility] Comment on above: Performed By: #### 102 #### [facility] [address] [place] [address], [facility] Nucleated RBC/100 WBC (Bld) [Ratio] 0 % Normal 0-0 [facility] Comment on above: Performed By: #### 5 3 #### [facility] [address] [place] [id number], [facility] PLAT CNT 281 10*3/uL Normal 150-400 [facility] Comment on above: Performed By: #### 5 0103 #### [facility] [address] [place] [address], [facility] RBC (Bld) [#/Vol] 4.70 10*6/uL Normal 3.80-5.00 The [facility] Comment on above: Performed By: #### 3 #### [facility] [address] [place] [address], [place] WBC (Bld) [#/Vol] 10.36 10*3/uL Normal 4.00-10.60 [facility] Comment on above: Performed By: #### 5 0103 #### [facility] 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 [facility] Vital Signs Date Time Vital Sign Value Performing Clinician Faci lity 12-29-2021 15:42-0400 Body temperature 97.7 [degF] Min Lewis MD Work Phone: [facility] 12-29-2021 15:42-0400 Diastolic blood pressure 67 mm[Hg] Min Lewis MD Work Phone: [facility] 12-29-2021 15:42-0400 Heart rate 82 /min Min Lewis MD Work Phone: [facility] 12-29-2021 15:42-0400 Respiratory rate 16 /min Min Lewis MD Work Phone: [facility] 12-29-2021 15:42-0400 SaO2% (BldA) [Mass fraction] 99 % Min Lewis MD Work Phone: [facility] 12-29-2021 15:42-0400 Systolic blood pressure 113 mm[Hg] Min Lewis MD Work Phone: [facility] Encounters Encounter Date Encounter Type Care Provider Facility Start: 04-30-2023 End: 05-01-2023 ambulatory BERNARDO PRAJAPATI Not Available Start: 04-18-2023 End: 04-18-2023 ambulatory JACINTO YIN Not Available Start: 04-10-2023 Chart abstracting Jacinto white [facility] Work Phone: [facility] Start: 03-28-2023 End: 03-28-2023 ambulatory JACINTO YIN Not Available Start: 03-21-2023 ambulatory [place] WHITE [facility] Start: 03-21-2023 ambulatory [facility] Start: 03-19-2023 End: 03-19-2023 ambulatory JACINTO YIN Not Available Start: 01-24-2023 End: 01-24-2023 ambulatory JANA FRANCIS Not Available Start: 09-20-2022 End: 09-20-2022 ambulatory [facility] Start: 07-31-2022 ambulatory Min castillo MD Work Phone: Hematology/Oncology Comment on above: Apt Start: 07-26-2022 Telephone encounter Min hay MD Work Phone: Hematology/Oncology Comment on above: Lab Orders Start: 05-18-2022 End: 05-19-2022 ambulatory BERNARDO PRAJAPATI Facility:[facility] Start: 04-24-2022 ambulatory Min castillo MD Work Phone: Hematology/Oncology Comment on above: Apt Start: 04-22-2022 Encounter for genera l adult medical examination without abnormal findings [facility] Start: 04-18-2022 End: 04-19-2022 ambulatory [facility] Facility:[facility]1 Start: 04-18-2022 End: 04-19-2022 Encounter for general adult medical examination without abnormal findings [facility] Facility:[facility]1 Start: 04-03-2022 Refill Brandee Jerez [facility] Work Phone: [facility] Comment on above: Refill Request Start: 03-21-2022 End: 03-22-[address] LAURA STILL Facility:[facility]1 Start: 03-13-2022 Refill Nargis rosenbaum [facility] Work Phone: Hematology/Oncology Comment on [...] Start: 01-11-2022 End: 01-12-2022 ambulatory LAURA STILL Facility[facility] Start: 01-09-2022 Telephone encounter Sb Sawyer Hematology/Oncology Comment on above: Orders; Patient Ques tion Start: 12-29-2021 End: 12-29-2021 ambulatory Min Lewis MD Work Phone: Hematology/Oncology Comment on above: 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 Start: 10-11-2016 End: 10-11-2016 Unknown HEMRAJ R ZURDO [facility] Start: 09-11-2016 Unknown LAURA STILL [facility] Procedures Date Procedure Procedure Detail Performing Clinician Start: 10-11-2016 EKG 12-LEAD LAURA TESSY Start: 09-12-2016 PACER DAVON DUAL CARLOTA MBER W REPROG LAURA STILL Plan of Treatment Date Care Activity Detail Author Start: 01-30-2024 End: 01-30-2024 Patient encounter procedure 01/30/2024 4:00 PM EST Office Visit [facility] [address] [place] [address] Jana Francis PA [address] [place] [address] [facility] Start: 01-25-2024 Medicare Annual Well ness (AWV) Medicare Annual Wellness (AWV) [facility] Start: 05-02-2023 End: 05-02-2023 Clinical Support 05/02/2023 7:00 PM EST Clinical Support [facility] [address] [place] [address] Jacinto Yin, [facility] [address] [place] [address] [facility] Start: 04-25-2023 End: 04-25-2023 Clinical Support 04/25/2023 7:00 PM EST Clinical Support [facility] [address] [place] [address] Jacinto Yin, [facility] [address] [place] [address] [facility] Start: 04-18-2023 End: 04-18-2023 Clinical Support 04/18/2023 7:00 PM EST Clinical Support [facility] [address] [place] [address] Jacinto Yin, [facility] [address] [place] [address] [facility] Start: 04-11-2023 End: 04-11-2023 Clinical Support 04/11/2023 8:00 PM EST Clinical Support [facility] [address] [place] [address] Jacinto Yin, [facility] [address] [place] [address] [facility] Start: 02-26-2022 DEPRESSION ASSESSMENT DEPRESSION ASS ESSMENT [facility] Start: 01-11-2022 End: 01-08-2023 CBC W Auto Differential panel - Blood CBC + DIFF Lab Routine Platelet dense granule deficiency (HCC) Expected: 01/11/2022, Expires: 01/08/2023 [facility] Work Phone: Comment on above: Expected: 01/11/2022 , Expires: 01/08/2023 Start: 01-11-2022 End: 01-08-2023 Comprehensive metabolic 2000 panel - Serum or Plasma COMP METABOLIC PANEL Lab Routine Platelet dense granule deficiency (HCC) Expected: 01/11/2022, Expires: 01/08/2023 [facility] Work Phone: Comment on above: Expected: 01/11/2022 , Expires: 01/08/2023 Start: 01-08-2022 End: 03-10-2022 PLATELET AGGREGATION PANEL PLATELET AGGREGATION PANEL Lab Routine Platelet dense granule deficiency (HCC) Expected: 01/08/2022, Expires: 03/10/2022 [facility] Work Phone: Comment on above: Expected: 01/08/2022 , Expires: 03/10/2022 Start: 01-08-2022 End: 03-10-2022 VON WILLEBRAND DX PANEL VON WILLEBRAND DX PANEL Lab Routine Platelet dense granule deficiency (HCC) Expected: 01/08/2022, Expires: 03/10/2022 [facility] Work Phone: Comment on above: Expected: 01/08/2022 , Expires: 03/10/2022 Start: 10-27-2021 Influenza vaccination INFLUENZA (#1) [facility] Start: 02-26-2021 DEPRESSION ASSESSMENT DEPRESSION ASS ESSMENT [facility] Start: 2014 HPV TESTING HPV TESTING [facility] Start: 2014 Screening for malign ant neoplasm of cervix [facility] Start: 2005 PAP TESTING PAP TESTING [facility] Start: 2005 Screening for malign ant neoplasm of cervix Pap Smear [facility] Start: 10-02-2003 Urine microalbumin profile DTAP,TDAP,TD (1 - Tdap) [facility] Start: 2002 HEPATITIS C SCREENING HEPATITIS C SC BRADNING [facility] Start: 2002 HIV SCREENING HIV SCREENING [facility] Start: 1990 PNEUMOCOCCAL (1 - PCV) PNEUMOCOCCAL (1 - PCV) [facility] Start: 04-03-1985 COVID-19 VACCINE (#1) COVID-19 VACCI NE (#1) [facility] Start: 1984 HEPATITIS B (1 of 3 - 3-dose series) HEPATITIS B (1 of 3 - 3-dose series) [facility] Payers Date Payer Category Payer Medicaid [id number] 2015 Unknown [id number] 2015 Medicare [id number] 1984 Unknown [id number] 2.16.8 [id number] 1984 Unknown [id number] 2.16.84 [id number] 1984 Unknown [id number] 2.16.84 [id number] 1984 Unknown [id number] 2.16.84 [id number] 1984 Unknown [id number] 2.16.84 [id number] 1984 Unknown [id number] 2.16.84 [id number] 1984 Unknown [id number] 2.16.84 [id number] 1984 Unknown [id number] 2.16.84 [id number] 1984 Unknown [id number] 1960 Medicaid [id number] 1960 Medicare [id number] Social History Date Type Detail Facility Start: 12-28-2021 End: 09-13-2022 Tobacco smoking status NHIS Occasional tobacco smoker [facility] History of tobacco use Cigarette Sm[facility] History of tobacco use Passive smoker [facility] Start: 12-28-2021 End: 09-13-2022 Tobacco use and exposure Smokeless tobacco non-user [facility] Start: 12-28-2021 Alcohol intake Current drinke r of alcohol (finding) [facility] Start: 1985 Sex Assigned At Not on file [facility] Start: 1985 Sex Assigned At Female C [facility] Start: 12-19-2021 End: 01-11-2022 Exposure to SARS-CoV-2 (event) Not sure [facility] Start: 01-24-2023 Alcohol intake Lifetime non-d stephanie (finding) [facility] Start: 09-13-2022 History of Social function [facility] Start: 09-13-2022 Tobacco use panel [facility] Start: 09-13-2022 Alcohol Comment caffeine 1-2 cups/da y [facility] Clinical Notes 12-29-2021 to 03-21-2023 Telephone Encounter [...] [facility] [place]. Chief Complaint: Rare syncope. Defecation syncope common. 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 [place] 07-26-2022 Miscellaneous Notes Patient has an appt on 07/31/22. Would you like labs, if so place orders. Rivka Patricia MA documented in this encounter [facility] 04-25-2022 Miscellaneous Notes Lvm for patient to call us back to reschedule her appointments to 3 months out if she so desires. Jana Jensen Mike Louie - just a routine appointment - if it's not needed we can push it out 3 months - I'd like to see you 1-2 x per year until we have a good pattern for treatment for you. Scheduling - an you call please? documented in this encounter [facility] 03-13-2022 Miscellaneous Notes Script was sent to [facility], but was kicked back to us as this is not a specialty medication and should be sent to local pharmacy. Thank you Jaziel Otoole [facility]: Message left for Nicolette to call us back to see where she would like this rx sent now. documented in this encounter [facility] 01-31-2022 Instructions Min Lewis MD - 01/31/2022 [...] of post-op bleeding. documented in this encounter [facility] 01-12-2022 Note HNO ID: [id number] Author: Min Lewis MD Service: ? Author Type: Physician Type: Progress Notes Filed: 01/31/2022 1:37 PM Note Text: NAME: Nicolette Fernandez [facility] NO.: [id number] DATE OF SERVICE: January 12, 2022 (Jake) Some elements in this clinic note that are critical to medical decision making have been carefully reviewed and included from a prior clinic note dated: December 29, 2021 (Jake) Referring Provider: Laura Still AMBULATORY TELEPHONE VISIT Nicolette M Jim has consented to this telephone encounter. Persons [...] Consistent with POTS syndrome. Dr. England from [place]. 2011 pacemaker placed following EP study in [facility]. Updated Visit, January 12, 2022: Called and [...] CPE Hematology and Oncology Services Provided at: [place], [place] CC: No referring provider defined for this encounter. Laura Still MD [address] [facility] [address] [facility] 01-12-2022 History of Presen t illness Narrative Images from the original note were not included. NAME: Nicolette Fernandez CLINIC NO.: [id number] DATE OF SERVICE: January 12, 2022 (Jake) Some elements in this clinic note that are critical to medical decision making have been carefully reviewed and included from a prior clinic note dated: December 29, 2021 (Jake) Referring Provider: Laura Still AMBULATORY TELEPHONE VISIT Nicoletteeddie Fernandez has consented to this telephone encounter. [...] Consistent with POTS syndrome. Dr. England from [place]. 2011 pacemaker placed following EP study in [facility]. Updated Visit, January 12, 2022: Called and [...] [facility] Hematology and Oncology Services Provided at: [place], [place] CC: No referring provider defined for this encounter. Laura Still MD [address] [facility] [address] documented in this encounter [facility] 01-09-2022 Miscellaneous Notes Pt left a VM to ask what labs are ordered and if she needs to go to [facility] for the Platelet aggregation if ordered. I attempted to call pt back to inform her of labs ordered. She will need to go to [facility] for the Plt aggregation. Updated on phone appt 01/12 with Anthony. Encouraged to call with any additional questions or concerns. Sb Rodriguez RN documented in this encounter [facility] 12-29-2021 Note HNO ID: [id number] Author: Min Lewis MD Service: ? Author Type: Physician Type: Progress Notes Filed: 01/08/2022 1:21 PM Note Text: NAME: Nicolette Fernandez NO.: [id number] DATE OF SERVICE: December 29, 2021 Referring [...] Consistent with POTS syndrome. Dr. England from [place]. 2011 pacemaker placed following EP study in [facility]. Initial Visit, December 29, 2021: Nicolette Seth RichardsonFernandez presents today Hematology and Oncology evaluation. She [...] promethazine 25 m (more content not included)... [facility] 12-29-2021 History of Presen t illness Narrative Images from the original note were not included. NAME: Nicolette Fernandez [facility] NO.: [id number] DATE OF SERVICE: December 29, 2021 Referring [...] Consistent with POTS syndrome. Dr. England from [place]. 2011 pacemaker placed following EP study in [facility]. Initial Visit, December 29, 2021: Nicolette Fernandez [...] which included preparing to see the patient, [id number] patient care, completing clinical documentation, obtaining and/or reviewing separately obtained history, performing a medically appropriate examination, counseling and educating the patient/family/caregiver, ordering medications, tests, or procedures, communicating with other HCPs (not separately reported), and independently interpreting results (not separately reported). Min Lewis MD, CPE Hematology and Oncology Services Provided at: [place], [place] CC: No referring provider defined for this encounter. 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 DATE CREATED AUTHOR AUTHOR'S ORGANIZ ATION 05/21/2022 [facility] DATE CREATED AUTHOR AUTHOR'S ORGANIZ ATION 09/02/2022 [facility] DATE CREATED AUTHOR AUTHOR'S ORGANIZ ATION 03/25/2023 [facility] DATE CREATED AUTHOR AUTHOR'S ORGANIZ ATION 05/05/2023 [facility] EPIC Source Comments (unrecognize d section and content) In the event this informatio n is protected by the Federal Confidentiality of Alcohol and Drug Abuse Patient Records regulations: The Federal rules restrict any use of the information to criminally investigate or prosecute any alcohol or drug abuse patient.[facility] the event this information is protected by the Federal Confidentiality of Alcohol and Drug Abuse Patient Records regulations: The Federal rules restrict any use of the information to criminally investigate or prosecute any alcohol or drug abuse patient.[facility] the event this information is protected by the Federal Confidentiality of Alcohol and Drug Abuse Patient Records regulations: The Federal rules restrict any use of the information to criminally investigate or prosecute any alcohol or drug abuse patient.[facility] the event this information is protected by the Federal Confidentiality of Alcohol and Drug Abuse Patient Records regulations: The Federal rules restrict any use of the information to criminally investigate or prosecute any alcohol or drug abuse patient.[facility] the event this information is protected by the Federal Confidentiality of Alcohol and Drug Abuse Patient Records regulations: The Federal rules restrict any use of the information to criminally investigate or prosecute any alcohol or drug abuse patient.[facility] the event this information is protected by the Federal Confidentiality of Alcohol and Drug Abuse Patient Records regulations: The Federal rules restrict any use of the information to criminally investigate or prosecute any alcohol or drug abuse patient.[facility] the event this information is protected by the Federal Confidentiality of Alcohol and Drug Abuse Patient Records regulations: The Federal rules restrict any use of the information to criminally investigate or prosecute any alcohol or drug abuse patient.[facility] the event this information is protected by the Federal Confidentiality of Alcohol and Drug Abuse Patient Records regulations: The Federal rules restrict any use of the information to criminally investigate or prosecute any alcohol or drug abuse patient.[facility] the event this information is protected by the Federal Confidentiality of Alcohol and Drug Abuse Patient Records regulations: The Federal rules restrict any use of the information to criminally investigate or prosecute any alcohol or drug abuse patient.[facility] the event this information is protected by the Federal Confidentiality of Alcohol and Drug Abuse Patient Records regulations: The Federal rules restrict any use of the information to criminally investigate or prosecute any alcohol or drug abuse patient.[facility] Care Teams (unrecognized sec tion and content) Spinal Surgeon Relationship Specialty Start Date End Date Laura Still MD [address] [place] [address] PCP - General Family Medicine 07/27/14 Spinal Surgeon Relationship Specialty Start Date End Date Laura Still MD [address] [facility] [place] [address] PCP - General Family Medicine 07/27/14 Spinal Surgeon Relationship Specialty Start Date End Date Laura Still MD [address] [place] [address] PCP - General Family Medicine 07/27/14 Spinal Surgeon Relationship Specialty Start Date End Date Laura Sitll MD [address] [facility] [place] [address] PCP - General Family Medicine 07/27/14 Spinal Surgeon Relationship Specialty Start Date End Date Laura Still MD [address] [facility] [place] [address] PCP - General Family Medicine 07/27/14 Spinal Surgeon Relationship Specialty Start Date End Date Laura Still MD [address] [facility] [place] [address] PCP - General Family Medicine 07/27/14 Spinal Surgeon Relationship Specialty Start Date End Date Laura Still MD [facility] [place] [address] PCP - General Family Medicine 07/27/14 Spinal Surgeon Relationship Specialty Start Date End Date Laura Still MD [address] [place] [address] [place] [address] PCP - General Family Medicine 07/27/14 Spinal Surgeon Relationship Specialty Start Date End Date Laura Still MD [address] [place] [address] [place] [address] PCP - General Family Medicine 07/27/14 Spinal Surgeon Relationship Specialty Start Date End Date Laura Still MD [address] [place] [address] [place] [address] PCP - General Family Medicine 01/24/23 Reason for Visit (unrecogniz ed section and [...] BE BASED ON THE PRIMARY CLINICAL RECORDS. [facility] [employer] [facility]. provides no warranty or guarantee of the accuracy or completeness of information in this document.
[2023-05-18 09:45] LABS: Alanine Aminotransferase 20 U/L (14-59); Albumin Globulin Ratio 1.3; Alkaline Phosphatase 55 U/L (46-116); Anion Gap 12.4; Aspartate Amino Transferase 11 U/L (15-37); BUN Creatinine Ratio 14.5; Bilirubin Total 0.2 mg/dL (0.2-1.0); Calcium 9.1 mg/dL (8.5-10.1); Carbon Dioxide 30.2 mmol/L (21.0-32.0); Chloride 103 mmol/L (98-107); Chol HDL Ratio 6.1; Cholesterol 188 mg/dL (<=200); Estimated GFR (African America >60 (>=60); Estimated GFR (Non-African Ame >60 (>=60); Glucose 84 mg/dL (74-106); HDL Cholesterol 31 mg/dL (40-60); Potassium 3.6 mmol/L (3.5-5.1); Sodium 142 mmol/L (136-145); Triglycerides 167 mg/dL (<=150); VLDL CHOLESTEROL 33.4 mg/dL
[2023-05-18 11:20] LABS: Basophils Absolute Auto 0.1 10^3/uL (0.0-0.1); Basophils Percent Auto 0.7 % (0.2-2.0); Eosinophils Absolute Auto 0.1 10^3/uL (0.0-0.7); Eosinophils Percent Auto 1.3 % (0.9-7.0); Hematocrit 40.6 % (36.0-48.0); Hemoglobin 13.9 g/dL (12.0-16.0); Immature Granulocytes Abs Auto 0.02 10^3/uL (0.00-0.03); Immature Granulocytes Pct Auto 0.2 % (0.0-0.5); Lymphocytes Absolute Auto 3.3 10^3/uL (1.2-3.8); Lymphocytes Percent Auto 35.1 % (20.5-60.0); Mean Corpuscular HGB Conc 34.2 g/dL (29.9-35.2); Mean Corpuscular Hemoglobin 32.6 pg (26.7-34.0); Mean Corpuscular Volume 95.3 fL (81.0-99.0); Mean Platelet Volume 11.1 fL (9.5-13.5); Monocytes Absolute Auto 0.7 10^3/uL (0.3-0.8); Monocytes Percent Auto 7.4 % (1.7-12.0); Neutrophils Absolute Auto 5.2 10^3/uL (1.4-6.5); Neutrophils Percent Auto 55.3 % (43.0-75.0); Platelet Count 264 10^3/uL (150-450); Red Blood Count 4.26 10^6/uL (4.20-5.40); Red Cell Distribution Width 11.9 % (11.0-15.0); White Blood Count 9.5 10^3/uL (4.0-11.0)
== END 2023-05-18 08:41 | disposition home or self-care (01) ==
LOC: LAB 08:42
PROVIDERS: PCP Family Medicine; Visit Provider Nurse Practitioner Family
DX: Z00.00 Encounter for general adult medical examination without abnormal findings (principal); Q79.60 Ehlers-Danlos syndrome, unspecified; E78.5 Hyperlipidemia, unspecified; E55.9 Vitamin D deficiency, unspecified
CPT/HCPCS: 36415; 80053; 80061; 82306; 85025

== ENCOUNTER 2024-04-22 15:40 | Outpatient (OUT) | payer MEDICARE, MEDICAID, SELFPAY ==
--- NOTE | 2024-04-22 15:56 | MM_ITS ---
Patient Name: NICOLETTE FERNANDEZ MR#: [id number] : 1985 Exam Date: 04/22/2024 Ordering Doctor: DR CHERRIE COLLADO M.D. RADIOLOGY REPORT PROCEDURE: MM TOMOSYNTHESIS SCREENING BI COMPARISON: MM TOMOSYNTHESIS SCREENING BI, 03/22/2023. MG MAMM SCREEN 3D NICK CAD, 03/21/2022. MG MAMM DIAGNOSTIC 3D NICK CAD, 02/24/2021. MG MAMM NICK DIAG W CAD DIG, 07/15/2013. INDICATIONS: Screening Calculator Name NCI Breast Cancer Risk Assessment Tool 5 Year Breast Cancer Risk 0.90% Lifetime Breast Cancer Risk 10.90% Personal Breast Cancer No Personal Ovarian Cancer No Treatments None Family Cancers Cousin-maternal with breast cancer at age 48; Grandmother-maternal with breast cancer at age 62; Grandmother-maternal with ovarian cancer at age 62; Father with prostate cancer at age ~48; Sister with cervical cancer at age ~25. LOCATION: [facility] BREAST COMPOSITION: The breasts are extremely dense, which lowers the sensitivity of mammography. FINDINGS: RIGHT BREAST: No significant suspicious finding. Benign-appearing calcifications are present. There is a biopsy clip in the right breast is unchanged. Benign-appearing lymph nodes are noted along the right chest wall 3rd LEFT BREAST: No significant suspicious finding. Similar focal asymmetries are noted with a pacer generator along the left chest wall. Benign-appearing lymph nodes in the along the left chest wall. DIAGNOSTIC CATEGORY 2--BENIGN FINDING. NO CHANGE FROM COMPARISON. RECOMMENDATIONS: ROUTINE MAMMOGRAM AND CLINICAL EVALUATION IN 12 MONTHS. PLEASE NOTE: A NORMAL MAMMOGRAM DOES NOT EXCLUDE THE POSSIBILITY OF BREAST CANCER. A CLINICALLY SUSPICIOUS PALPABLE LUMP SHOULD BE BIOPSIED. Dictated by: Aidan Townsend MD on 04/23/2024 at 08:25 Approved by: Aidan Townsend MD on 04/23/2024 at 08:31
== END 2024-04-22 15:41 | disposition home or self-care (01) ==
LOC: MAMMO 15:40
PROVIDERS: PCP Family Medicine; Visit Provider Family Medicine
DX: Z12.31 Encounter for screening mammogram for malignant neoplasm of breast (principal); Z80.3 Family history of malignant neoplasm of breast; Z80.41 Family history of malignant neoplasm of ovary; Z80.42 Family history of malignant neoplasm of prostate; Z80.8 Family history of malignant neoplasm of other organs or systems
CPT/HCPCS: 77063; 77067